=== PATIENT | male | born 1945 | race Caucasian/White ===

== ENCOUNTER → 2018-06-30 | Outpatient (CLI) | payer MEDICARE ==
[2018-06-30 07:43] LABS: Basophils % (A) 0 %; Eosinophils # (A) 0.2 k/uL (0-0.7); Eosinophils % (A) 3 %; HCT 45.3 % (39.0-53.0); HGB 14.7 gm/dL (13.0-17.5); Lymphocytes # (A) 2.2 k/uL (1.0-4.8); Lymphocytes % (A) 30 %; MCH 31.5 pg (25.0-35.0); MCHC 32.5 g/dL (31.0-37.0); Mean Platelet Volume 8.7; Monocytes # (A) 0.7 k/uL (0-1.0); Monocytes % (A) 9 %; Neutrophils # (A) 3.9 k/uL (1.3-7.7); Neutrophils % (A) 55 %; Platelet Count 166 k/uL (150-450); RBC 4.67 m/uL (4.30-5.90); RDW 13.1 % (11.5-15.5); WBC 7.2 k/uL (3.8-10.6)
[2018-06-30 08:18] LABS: ALT 27 U/L (21-72); AST 36 U/L (17-59); Alkaline Phosphatase 85 U/L (38-126); Anion Gap 6 mmol/L; Blood Urea Nitrogen 16 mg/dL (9-20); Calcium 9.4 mg/dL (8.4-10.2); Carbon Dioxide 32 mmol/L (22-30); Chloride 104 mmol/L (98-107); Cholesterol 204 mg/dL (<200); Glucose 89 mg/dL (74-99); HDL Cholesterol 61 mg/dL (40-60); LDL Cholesterol,Calculated 113 mg/dL (0-99); Potassium 4.3 mmol/L (3.5-5.1); Sodium 142 mmol/L (137-145); Total Bilirubin 0.5 mg/dL (0.2-1.3); Total Protein 6.9 g/dL (6.3-8.2); Triglycerides 149 mg/dL (<150)
[2018-06-30 08:21] LABS: T4, Free (Free Thyroxine) 1.15 ng/dL (0.78-2.19)
== END | disposition home or self-care (01) ==
LOC: LABWHC1 06:34
PROVIDERS: ATTEND Internal Medicine Cardiovascular Disease
DX: R06.02 Shortness of breath (principal); I35.0 Nonrheumatic aortic (valve) stenosis; E78.5 Hyperlipidemia, unspecified
CPT/HCPCS: 36415; 80053; 80061; 84439; 84443; 85025

== ENCOUNTER → 2019-02-14 | Outpatient (CLI) | payer MEDICARE, BC ==
[2019-02-14 08:14] LABS: Blood Urea Nitrogen 12 mg/dL (9-20)
--- NOTE | 2019-02-14 10:21 | CT ---
EXAMINATION TYPE: CT angio neck DATE OF EXAM: 02/14/2019 HISTORY: Carotid stenosis single artery per order. History of aortic valve replacement per patient. R ecent abnormal MRI per patient. COMPARISON: NONE at this institution. CT DLP: 226.1 mGycm. Automated Exposure Control for Dose Reduction was Utilized. TECHNIQUE: CTA scan of the neck is performed with IV Contrast, patient injected with 50 mL of Isovue 370, axial images are obtained, coronal and sagittal reformatted images are reviewed. Three-D recons tructed images are created on an independent workstation and reviewed. FINDINGS: Carotid/Vascular Structures: Ascending aorta measures up to 4.1 cm in diameter axial image 1. There i s mild mild to moderate mixed plaque in aortic arch. There is normal three-vessel origin from the aor tic arch. The right brachiocephalic artery shows moderate peripheral noncalcified plaque is not causi ng greater than 50% stenosis. Left subclavian artery shows mild to moderate mixed peripheral plaque w ithout significant stenosis. Both subclavian arteries show no significant stenosis. The right common carotid artery shows normal origin from the right brachiocephalic artery. Right comm on carotid artery shows no solid significant plaque or stenosis. There is moderate peripheral calcifi ed plaque at right carotid bulb extending into internal carotid artery. There is patent right externa l carotid artery without significant plaque or stenosis. In the proximal right internal carotid arter y there is severe noncalcified plaque causing significant stenosis. Lumen diameter is narrowed to 1.4 mm image 65 series 4 with reconstitution 2 roughly 4.9 mm superior to this image 67. Remainder of ri ght internal carotid artery shows mild calcified plaque without significant stenosis. The left common carotid artery shows moderate anterior eccentric noncalcified plaque mid to distal se gments with tiny ulceration axial image 45 noted. No significant stenosis is seen. There is moderate mixed plaque at left carotid bulb extending into proximal internal and external carotid arteries. Ext ernal carotid artery shows no significant stenosis. There becomes more severe mixed plaque in the pro ximal left internal carotid artery causing narrowing of vessel down to 5.5 x 2.6 mm axial image 63 wi th reconstitution to 4.7 mm axial image 72. Tortuous course to remainder of internal carotid artery i s seen with mild calcified plaque supraclinoid segment. No significant stenosis is noted. There is dominant right vertebral artery. Vertebral arteries are patent to basilar junction without s ignificant stenosis or plaque. Other: There is mild to moderate underlying emphysematous change and the visualized lungs. There are sternal wires and mediastinal clips noted. There is mild to moderate multilevel spurring and disc spa ce narrowing C3-C4 through the C6-C7 level in the cervical spine. IMPRESSION: Hemodynamically significant stenosis due to severe noncalcified plaque proximal right int ernal carotid artery, estimated degree of stenosis is just over 70% based on above measurements.
== END ==
LOC: RADCTMAIN 07:34
PROVIDERS: ATTEND Internal Medicine Cardiovascular Disease
DX: I65.21 Occlusion and stenosis of right carotid artery (principal)
CPT/HCPCS: 82565; 84520; 70498; 36415; Q9967

== ENCOUNTER → 2019-03-16 | Outpatient (CLI) | payer MEDICARE, BC ==
[2019-03-16 22:32] LABS: African American GFR (CKD) 104.2 (60.0-200.0); Anion Gap 2.6 mmol/L (4.00-12.00); BUN/Creat Ratio 16.25 Ratio (12.00-20.00); Calcium 9.3 mg/dL (8.7-10.3); Carbon Dioxide 33.4 mmol/L (21.6-31.8); Potassium 4.4 mmol/L (3.5-5.5)
== END | disposition home or self-care (01) ==
LOC: LABWHC1 16:09
PROVIDERS: ATTEND Internal Medicine Cardiovascular Disease
DX: I50.9 Heart failure, unspecified (principal); I51.7 Cardiomegaly
CPT/HCPCS: 36415; 80048

== ENCOUNTER → 2020-02-26 | Outpatient (CLI) | payer MEDICARE, BC ==
[2020-02-26 17:34] LABS: Chol/HDL Ratio 2.87; LDL Cholesterol,Calculated 107.8 mg/dL (0.0-131.0); VLDL Calculation 23.2 mg/dL (5.00-40.00)
== END | disposition home or self-care (01) ==
LOC: LABWHC1 10:34
PROVIDERS: ATTEND Internal Medicine Cardiovascular Disease
DX: E78.00 Pure hypercholesterolemia, unspecified (principal)
CPT/HCPCS: 36415; 80061; 84450; 84460

== ENCOUNTER → 2021-03-20 | Outpatient (CLI) | payer MEDICARE, BC ==
[2021-03-20 18:56] LABS: African American GFR (CKD) 108.5 (60.0-200.0); Albumin 4.1 g/dL (3.80-4.90); Albumin/Globulin Ratio 1.71 (1.60-3.17); BUN/Creat Ratio 18.57 Ratio (12.00-20.00); Calcium 9.3 mg/dL (8.7-10.3); Chol/HDL Ratio 2.88; Globulin 2.4 g/dL (1.6-3.3); LDL Cholesterol,Calculated 106.4 mg/dL (0.0-131.0); Non-African American GFR(CKD) 93.6 (60.0-200.0); Potassium 4.7 mmol/L (3.5-5.5); Total Bilirubin 0.5 mg/dL (0.3-1.2); Total Protein 6.5 g/dL (6.2-8.2); VLDL Calculation 19.6 mg/dL (5.00-40.00)
== END | disposition home or self-care (01) ==
LOC: LABWHC1 07:10
PROVIDERS: ATTEND Internal Medicine Cardiovascular Disease
DX: I42.0 Dilated cardiomyopathy (principal); I50.22 Chronic systolic (congestive) heart failure; E78.2 Mixed hyperlipidemia
CPT/HCPCS: 36415; 80053; 80061

== ENCOUNTER → 2021-07-22 | Outpatient (CLI) | payer MEDICARE, BC ==
[2021-07-22 14:43] LABS: African American GFR (CKD) >90 (>60 ml/min/1.73 sqM); Blood Urea Nitrogen 17 mg/dL (9-20); Non-African American GFR(CKD) >90 (>60 ml/min/1.73 sqM)
--- NOTE | 2021-07-22 16:14 | CT ---
EXAMINATION TYPE: CT angio neck DATE OF EXAM: 07/22/2021 HISTORY: Carotid stenosis. COMPARISON: CT angiogram of the neck 02/14/2019 CT DLP: 303 mGycm. Automated Exposure Control for Dose Reduction was Utilized. TECHNIQUE: CTA scan of the neck is performed with IV Contrast, patient injected with 65 mL of Isovue 370, axial images are obtained, coronal and sagittal reformatted images are reviewed. 3D reconstruct ed images are created on an independent workstation and reviewed. FINDINGS: Carotid/Vascular Structures: There is extensive atheromatous change present at the level of the carot id bifurcations. Critical stenosis of the proximal internal carotid artery on the right is noted, josé antonio nosis is estimated at approximately 70% or greater. On the left there is a significant internal carot id artery stenosis also present, stenosis also measured approximately 70% diameter reduction or possi marlen greater. 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 Other: Atheromatous changes are again noted in the upper lobes. Patient is post median sternotomy. D egenerative disc changes are present in the visualized spine IMPRESSION: Bilateral hemodynamic significant stenosis the proximal internal carotid arteries likely greater on the right than on the left but similar NASCET criteria was used in interpretation of this exam?
== END | disposition home or self-care (01) ==
LOC: RADCTMAIN 13:44
PROVIDERS: ATTEND Internal Medicine Cardiovascular Disease
DX: I65.8 Occlusion and stenosis of other precerebral arteries (principal)
CPT/HCPCS: 82565; 84520; 70498; 36415; Q9967

== ENCOUNTER → 2021-10-13 | Outpatient (CLI) | payer MEDICARE ==
[2021-10-13 10:28] LABS: HCT 45.2 % (39.0-53.0); MCH 30.9 pg (25.0-35.0); MCV 99.7 fL (80.0-100.0); Platelet Count 159 k/uL (150-450); RBC 4.54 m/uL (4.30-5.90); RDW 12.4 % (11.5-15.5); WBC 7.3 k/uL (3.8-10.6)
[2021-10-13 10:50] LABS: African American GFR (CKD) >90 (>60 ml/min/1.73 sqM); Anion Gap 2 mmol/L; Blood Urea Nitrogen 15 mg/dL (9-20); Carbon Dioxide 38 mmol/L (22-30); Chloride 98 mmol/L (98-107); Non-African American GFR(CKD) >90 (>60 ml/min/1.73 sqM); Sodium 138 mmol/L (137-145)
[2021-10-13 11:14] LABS: Potassium 4.6 mmol/L (3.5-5.1)
== END | disposition home or self-care (01) ==
LOC: LABPAT 07:58
PROVIDERS: ATTEND Internal Medicine Interventional Cardiology
DX: Z01.812 Encounter for preprocedural laboratory examination (principal)
CPT/HCPCS: 80051; 82565; 84520; 85027

== ENCOUNTER 2021-10-14 06:08 | Inpatient (IN) | payer BC, MEDICARE ==
[2021-10-14] MEDS ORDERED: ceFAZolin 2 GM in SODIUM CHLORIDE 0.9% 500 ML 500 ML IRRIGATION PRN (06:33)
[2021-10-14] MEDS ORDERED: CLOPIDOGREL 75 MG TAB PO PRN (06:33)
[2021-10-14] MEDS ORDERED: ALPRAZolam 0.25 MG TAB PO PRN (06:33)
[2021-10-14] MEDS ORDERED: ALPRAZolam 0.5 MG TAB PO PRN (06:33)
[2021-10-14] MEDS ORDERED: ASPIRIN 325 MG TAB PO PRN (06:33)
[2021-10-14] MEDS ORDERED: ASPIRIN 81 MG PO PRN (06:33)
[2021-10-14] MEDS ORDERED: SODIUM CHLORIDE 0.9% 1,000 ML in EMPTY BAG 1 BAG IV ONE (06:33)
[2021-10-14] MEDS ORDERED: NITROGLYCERIN SL TABS 0.4 MG TAB SUBLINGUAL PRN ×2 (06:33→11:00)
[2021-10-14] MEDS ORDERED: SODIUM CHLORIDE 0.9% 1,000 ML IV ONE (07:02)
[2021-10-14] MEDS ORDERED: CLOPIDOGREL 75 MG TAB PO ONE (09:12)
[2021-10-14] MEDS ORDERED: HEPARIN SODIUM 1,000 UN/ML (10ML VL) IV ONE (09:18)
[2021-10-14] MEDS ORDERED: MAG HYDROX/AL HYDROX/SIMETH 30 ML CUP PO PRN (11:00)
[2021-10-14] MEDS ORDERED: ZOLPIDEM 5 MG TAB PO PRN (11:00)
[2021-10-14] MEDS ORDERED: RX INFO: IV CONTRAST WAS GIVEN 1 EACH MISC MISCELLANE PRN (11:00)
[2021-10-14] MEDS ORDERED: SODIUM CHLORIDE 0.9% 1,000 ML in EMPTY BAG 1 BAG IV SCH (11:00)
[2021-10-14] MEDS ORDERED: ATROPINE SULFATE 0.1 MG/ML 10ML SYRINGE IV PRN (11:00)
--- NOTE | 2021-10-14 11:12 | P.PCN ---
Date of Procedure: 10/14/21 Operative Findings: CAROTID ARTERY INTERVENTION Performing physician Cas Armstrong M.D. Procedure performed #1 successful stenting of the left internal carotid artery using 6-8 mm x 30 mm Acculink with adjunctive use of filter wire #2 selective left common and left internal carotid artery angiogram #3 an aortic arch angiogram #4 ultrasound-guided access of the right common femoral artery Indication This is a 76-year-old gentleman with multiple comorbid conditions including history of valvular heart disease and status post aortic valve replacement as well as hypertension and dyslipidemia who was diagnosis and he was critical disease involving the right and left internal carotid artery. Approach Right common femoral artery Complication None Level of sedation No sedation was given during the procedure Procedure description After obtaining an informed consent the patient was brought to the cardiac bottle labeler. The right common femoral artery was cannulated using puncture technique under ultrasound guidance, the micropuncture wire passed easily then replace 70 cm 6- Lebanese shuttle sheath in the right common femoral artery over an 035 stiff Glidewire. That point anticoagulation was initiated and the patient was given 6000 use of heparin at the beginning of the procedure with continuous ACT monitoring throughout the procedure Subsequently I did aortic arch angiogram using 5-Lebanese pigtail catheter. 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 At that point I did engage the ostial of the left common carotid artery using initially JB2 catheter but we had difficulties advancing the wire to the left common carotid artery and for that reason a change the catheter into the BTK catheter and with that I was able to engage the ostial of the left common carotid artery better. Subsequently I advanced to the left common carotid artery. Then I advanced the sheath over the wire and the catheter to the proximal left common carotid artery. Left common and left internal carotid artery angiogram was performed and revealed critical lesion involving the left common carotid artery right after the takeoff from the left common carotid artery. At that point and after prepping the filter wire and that was 7.2 mm Emboshield ADRIAN filter wire I did advance the wire through the lesion in the left common carotid artery and subsequently I deployed the filter under fluoroscopy guidance. Predilatation of the lesion was performed using 4 mm balloon. Subsequently I deployed a 68 mm x 30 mm Acculink stent under fluoroscopy guidance after the stent was positioned under fluoroscopy guidance. Postdilatation was performed using 5 mm balloon. The following angiogram showed an excellent angiographic results and the procedure was completed without any complication Postprocedure management #1 dual antiplatelet therapy #2 restart the patient back on anticoagulation #3 pulled the sheath from the right groin and manual bleeding control #4 and ICU monitoring #5 follow-up with the patient
--- NOTE | 2021-10-14 12:39 | IR ---
Fluoroscopy HISTORY: Carotid stenosis 30.6 minutes fluoroscopy time supplied to the referring clinician. 2 70 intraoperative C-arm image s document the procedure. See dictated report from cardiology.
[2021-10-14] MEDS ORDERED: WARFARIN 5 MG TAB PO SCH (12:59)
--- NOTE | 2021-10-14 13:04 | P.PN ---
Progress Note - Text Progress Note Date: 10/14/21 The initial consent was to perform stenting of the right internal carotid artery. The angiogram of the left internal carotid artery revealed a critical disease appeared to be in the range of 99.9%. Or that reason we decided to pursue stenting of the left carotid artery first.
[2021-10-14] MEDS: NOREPINEPHRINE 4 MG in SODIUM CHLORIDE 0.9% 250 ML IV SCH (13:15)
[2021-10-14] MEDS ORDERED: WARFARIN 7.5 MG TAB PO ONE (13:45)
[2021-10-14 14:59] LABS: Glucose,Whole Blood 128 mg/dL (75-99)
[2021-10-14] MEDS: ACETAMINOPHEN TAB 325 MG TAB PO PRN (17:24)
[2021-10-14] MEDS: ENOXAPARIN 60 MG/0.6 ML SYRINGE SQ SCH (20:42)
[2021-10-14 20:57] VITALS: TEMP 98.6
[2021-10-15] MEDS: ACETAMINOPHEN TAB 325 MG TAB PO PRN (03:44)
[2021-10-15] MEDS: NOREPINEPHRINE 4 MG in SODIUM CHLORIDE 0.9% 250 ML IV SCH (03:45)
[2021-10-15 06:50] LABS: INR 1.1 (<1.2); Prothrombin Time 11.7 sec (9.0-12.0)
[2021-10-15] MEDS ORDERED: SODIUM CHLORIDE 0.9% 1,000 ML IV SCH (07:45)
[2021-10-15] MEDS ORDERED: ASPIRIN 81 MG PO SCH (09:00)
[2021-10-15] MEDS ORDERED: CLOPIDOGREL 75 MG TAB PO SCH (09:15)
[2021-10-15 09:19] LABS: African American GFR (CKD) >90 (>60 ml/min/1.73 sqM); Anion Gap -2 mmol/L; Blood Urea Nitrogen 10 mg/dL (9-20); Calcium 8.7 mg/dL (8.4-10.2); Carbon Dioxide 33 mmol/L (22-30); Chloride 104 mmol/L (98-107); Glucose 108 mg/dL (74-99); Non-African American GFR(CKD) >90 (>60 ml/min/1.73 sqM); Potassium 4.1 mmol/L (3.5-5.1); Sodium 135 mmol/L (137-145)
[2021-10-15] MEDS: ENOXAPARIN 60 MG/0.6 ML SYRINGE SQ SCH (09:29)
[2021-10-15 09:43] LABS: Basophils % (A) 0 %; Eosinophils # (A) 0.1 k/uL (0-0.7); Eosinophils % (A) 1 %; HCT 39.6 % (39.0-53.0); HGB 12.5 gm/dL (13.0-17.5); Lymphocytes % (A) 18 %; MCH 31.5 pg (25.0-35.0); MCHC 31.6 g/dL (31.0-37.0); MCV 99.8 fL (80.0-100.0); Mean Platelet Volume 9.3; Monocytes # (A) 0.8 k/uL (0-1.0); Monocytes % (A) 7 %; Neutrophils # (A) 7.7 k/uL (1.3-7.7); Neutrophils % (A) 72 %; Platelet Count 172 k/uL (150-450); RBC 3.97 m/uL (4.30-5.90); RDW 12.4 % (11.5-15.5); WBC 10.8 k/uL (3.8-10.6)
[2021-10-15 11:21] VITALS: BMI 18.5
[2021-10-15 13:25] VITALS: BP 123/78; PULSE 98; RESP 15
--- NOTE | 2021-10-15 17:15 | P.DS ---
Providers Date of admission: 10/14/21 06:08 Attending physician: Cas Armstrong Consults: 10/14/21 11:00 Consult Physician Routine Consulting Provider: [facility] Consult Reason/Comments: Post Interventional patient Do you want consulting provider notified?: Already Contacted Primary care physician: Stated None Hospital Course: The patient is a pleasant 76-year-old gentleman was admitted to the hospital yesterday and underwent successful stenting of the left internal carotid artery with an excellent angiographic results. The procedure was performed from the right groin. 1 soft and nontender and without any bruises. He was seen and evaluated this morning tomography. The patient is going to discharge on dual antiplatelet therapy. He will be bridged to Coumadin using Lovenox because he does have a mechanical aortic valve prosthesis. I'm going to follow-up with the patient in a week. Plan - Discharge Summary Discharge Rx Participant: Yes New Discharge Prescriptions: New Enoxaparin [Lovenox] 60 mg SQ Q12H #14 each Enoxaparin [Lovenox] 60 mg SQ Q12HR #14 each Aspirin 81 mg PO DAILY #90 Clopidogrel [Plavix] 75 mg PO DAILY #90 tab Continue Multivitamins, Thera [Multivitamin (formulary)] 1 tab PO DAILY Warfarin [Coumadin] 5 mg PO DAILY Spironolactone 25 mg PO DAILY Lovastatin [Mevacor] 20 mg PO HS Carvedilol [Coreg] 12.5 mg PO BID Potassium Chloride [K-Tab ER] 8 meq PO DAILY Discharge Medication List Carvedilol [Coreg] 12.5 mg PO BID 10/12/21 [History] Lovastatin [Mevacor] 20 mg PO HS 10/12/21 [History] Multivitamins, Thera [Multivitamin (formulary)] 1 tab PO DAILY 10/12/21 [History] Potassium Chloride [K-Tab ER] 8 meq PO DAILY 10/12/21 [History] Spironolactone 25 mg PO DAILY 10/12/21 [History] Warfarin [Coumadin] 5 mg PO DAILY 10/12/21 [History] Aspirin 81 mg PO DAILY #90 10/15/21 [Rx] Clopidogrel [Plavix] 75 mg PO DAILY #90 tab 10/15/21 [Rx] Enoxaparin [Lovenox] 60 mg SQ Q12H #14 each 10/15/21 [Rx] Enoxaparin [Lovenox] 60 mg SQ Q12HR #14 each 10/15/21 [Rx] Follow up Appointment(s)/Referral(s): Cas Armstrong MD [STAFF PHYSICIAN] - 1 Week Patient Instructions/Handouts: How to Stop Smoking (DC), Heart Healthy Diet (DC), Carotid Artery Stent Placement (DC), Carotid Artery Stent Placement (GEN) Activity/Diet/Wound Care/Special Instructions: Lovenox cost is $40. Lovenox prescription filled at [facility]. Continue taking Lovenox twice a day until your follow-up appointment with Dr. Garcia. Continue taking Coumadin every day. 5 mg dose daily per Dr. Garcia until your INR is therapeutic. Discharge Disposition: HOME SELF-CARE
--- NOTE | 2021-10-15 17:18 | P.PN ---
Progress Note - Text Progress Note Date: 10/15/21 The patient was discharged on carvedilol. I called the patient to stop taking the carvedilol to the ICU in the office. Just because his pressure was marginally low before he left home. The patient was in full understanding and agreement
[2021-10-15] MEDS ORDERED: WARFARIN 5 MG TAB PO ONE (18:00)
== END 2021-10-15 13:28 | disposition home or self-care (01) | DRG 36 ==
LOC: 2ORMAIN 06:08 → 2SICU 14:09
PROVIDERS: ADMIT Internal Medicine Interventional Cardiology; ATTEND Internal Medicine Interventional Cardiology
PROC: B3171ZZ Fluoroscopy of Left Internal Carotid Artery using Low Osmolar Contrast (ICD-10-PCS; 2021-10-14)
PROC: B3101ZZ Fluoroscopy of Thoracic Aorta using Low Osmolar Contrast (ICD-10-PCS; 2021-10-14)
PROC: 037L3DZ Dilation of Left Internal Carotid Artery with Intraluminal Device, Percutaneous Approach (ICD-10-PCS; principal; 2021-10-14 07:30)
DX: I65.22 Occlusion and stenosis of left carotid artery (principal); E78.5 Hyperlipidemia, unspecified; I10 Essential (primary) hypertension; Z20.822 Contact with and (suspected) exposure to COVID-19; Z95.2 Presence of prosthetic heart valve
CPT/HCPCS: 37215; 80048; 80051; 82565; 84520; 85025; 85027; 85610; 87635

== ENCOUNTER 2021-11-04 11:00 | Observation (INO) | payer MEDICARE ==
[2021-12-04 14:29] VITALS: BMI 19.9
[2021-12-09] MEDS ORDERED: ASPIRIN 325 MG TAB PO PRN (06:00)
[2021-12-09] MEDS ORDERED: ZOLPIDEM 5 MG TAB PO PRN (06:00)
[2021-12-09] MEDS ORDERED: SODIUM CHLORIDE 0.9% 1,000 ML in EMPTY BAG 1 BAG IV ONE (06:00)
[2021-12-09] MEDS ORDERED: ALPRAZolam 0.5 MG TAB PO PRN (06:00)
[2021-12-09] MEDS ORDERED: ALPRAZolam 0.25 MG TAB PO PRN (06:00)
[2021-12-09] MEDS ORDERED: ASPIRIN 81 MG PO PRN (06:00)
[2021-12-09] MEDS ORDERED: NITROGLYCERIN SL TABS 0.4 MG TAB SUBLINGUAL PRN (06:00)
[2021-12-09] MEDS ORDERED: CLOPIDOGREL 75 MG TAB PO PRN (06:00)
[2021-12-09] MEDS ORDERED: ceFAZolin 2 GM in SODIUM CHLORIDE 0.9% 500 ML 500 ML IRRIGATION PRN (07:00)
[2021-12-09 09:17] VITALS: RESP 16; TEMP 98.1
[2021-12-09 09:44] LABS: INR 0.9 (<1.2); Prothrombin Time 10.2 sec (9.0-12.0)
[2021-12-09] MEDS ORDERED: LIDOCAINE 1% INJ 10MG/ML (20 ML MDV) ONE (10:15)
[2021-12-09] MEDS ORDERED: HEPARIN SODIUM 1,000 UN/ML (10ML VL) ONE (10:23)
[2021-12-09] MEDS ORDERED: LIDOCAINE 1% INJ 10MG/ML (20 ML MDV) SQ ONE (10:34)
[2021-12-09] MEDS ORDERED: ATROPINE SULFATE 0.1 MG/ML 10ML SYRINGE IV ONE (11:01)
[2021-12-09] MEDS ORDERED: IOPAMIDOL-370 100ML BTL INJ ONE (11:11)
[2021-12-09] MEDS ORDERED: WARFARIN 5 MG TAB PO SCH (11:15)
[2021-12-09] MEDS ORDERED: NALOXONE 0.4 MG/ML 1 ML VIAL IVP PRN (11:16)
--- NOTE | 2021-12-09 12:01 | IR ---
EXAMINATION TYPE: IR angio carotid cerv RT DATE OF EXAM: 12/09/2021 CLINICAL HISTORY: Carotid artery stenosis TECHNIQUE: Fluoroscopy. COMPARISON: CTA neck July 22, 2021. FINDINGS: Fluoroscopic guidance was provided during carotid angiogram procedure performed by Dr. Ara mcelroy. A total of 8.8 minutes of fluoroscopic time was utilized during the procedure and 53 spot images was acquired. Please refer to procedure note for further details if necessary as I was not present no r performed procedure. IMPRESSION: As Above.
[2021-12-09 15:50] VITALS: BP 134/61; PULSE 72
--- NOTE | 2021-12-09 19:09 | P.PCN ---
Date of Procedure: 12/09/21 Operative Findings: Carotid angiogram Performing physician Cas Armstrong MD Procedure performed Selective right common carotid and right internal carotid angiogram Selective right common femoral artery angiogram Ultrasound-guided access of the right common femoral artery Indication Critical disease involving the right common carotid artery documented by CTA of the head and neck. Approach Right common femoral artery Complication None Level of sedation No sedation was done Procedure description After obtaining an informed consent the patient was brought to the cardiac label pinker. The right common femoral artery was cannulated using micropuncture technique, the micropuncture wire passed easily then I place a 6-Belgian sheath 90 cm "shadow sheath" which was advanced to the ascending aorta under fluoroscopy guidance. I did selective the innominate artery using PTK catheter. I did wire the right common carotid artery using super core wire. After that using multipurpose catheter I was able to advance the sheath over the wire and the catheter to the proximal right common carotid artery. Selective right common carotid artery angiogram was performed as well as selective right internal carotid artery angiogram. That was performed in multiple angulations. The angiogram revealed critical disease with distinct sign but beside that the patient developed hypotension and bradycardia with a very timely injecting contrast. In the light of the above I decided to abort the angioplasty and stenting of the right carotid and the patient will be referred to undergo right carotid endarterectomy. Postprocedure management Refer the patient for right carotid endarterectomy Restart the patient back on Lovenox as a bridge to heparin Follow-up with the patient
[2021-12-09] MEDS ORDERED: ENOXAPARIN 60 MG/0.6 ML SYRINGE SQ SCH (21:00)
[2021-12-10] MEDS ORDERED: SPIRONOLACTONE 25 MG TAB PO SCH (09:00)
[2021-12-10] MEDS ORDERED: ASPIRIN 81 MG PO SCH (09:00)
[2021-12-10] MEDS ORDERED: MULTIVITAMINS, THERA 1 EACH TAB PO SCH (09:00)
[2021-12-10] MEDS ORDERED: POTASSIUM CHLORIDE ER 10 MEQ TAB.ER.PRT PO SCH (09:00)
[2021-12-10] MEDS ORDERED: ATORVASTATIN 20 MG TAB PO SCH (09:00)
[2021-12-10] MEDS ORDERED: CLOPIDOGREL 75 MG TAB PO SCH (09:00)
[2021-12-12] MEDS ORDERED: WARFARIN 5 MG TAB PO SCH (11:13)
== END 2021-12-09 18:10 | disposition home or self-care (01) ==
LOC: 2ORMAIN 12-09 08:50 → INTOOBSV 12-09 08:50 → UNDODISIN 12-09 18:10
PROVIDERS: ADMIT Internal Medicine Interventional Cardiology; ATTEND Internal Medicine Interventional Cardiology
PROC: B41F1ZZ Fluoroscopy of Right Lower Extremity Arteries using Low Osmolar Contrast (ICD-10-PCS; principal; 2021-12-09 10:00)
PROC: B3161ZZ Fluoroscopy of Right Internal Carotid Artery using Low Osmolar Contrast (ICD-10-PCS; principal; 2021-12-09 10:00)
DX: I65.21 Occlusion and stenosis of right carotid artery (principal); I11.0 Hypertensive heart disease with heart failure; I50.22 Chronic systolic (congestive) heart failure; I42.0 Dilated cardiomyopathy; I95.89 Other hypotension; R00.1 Bradycardia, unspecified; F17.210 Nicotine dependence, cigarettes, uncomplicated; Z79.01 Long term (current) use of anticoagulants; E78.00 Pure hypercholesterolemia, unspecified; Z79.82 Long term (current) use of aspirin; Z79.02 Long term (current) use of antithrombotics/antiplatelets; Z79.899 Other long term (current) drug therapy; Z95.2 Presence of prosthetic heart valve; Z95.820 Peripheral vascular angioplasty status with implants and grafts
CPT/HCPCS: 36224; 85347; 85610; 87635; G0379; C1769 ×5; C1894 ×2; J2001; J0461; J1644; Q9967

== ENCOUNTER → 2021-11-16 | Outpatient (CLI) | payer MEDICARE ==
[2021-11-16 18:28] LABS: HCT 36.8 % (39.6-50.0); HGB 11.3 g/dL (13.0-17.0); MCH 30.5 pg (27.0-32.0); MCHC 30.7 g/dL (32.0-37.0); MCV 99.5 fL (80.0-97.0); Mean Platelet Volume 11.6 fL (9.5-12.2); NRBC Per 100 WBC 0 /100 WBCS (0.0-0.0); Platelet Count 194 X 10*3/uL (140-440); RDW 12.6 % (11.5-14.5); WBC 6.38 X 10*3/uL (4.50-10.00)
[2021-11-16 18:50] LABS: African American GFR (CKD) 110.9 (60.0-200.0); Anion Gap 9.9 mmol/L (10.00-18.00); Carbon Dioxide 30.1 mmol/L (20.0-27.5); Non-African American GFR(CKD) 95.7 (60.0-200.0)
== END | disposition home or self-care (01) ==
LOC: LABWHC1 11:34
PROVIDERS: ATTEND Internal Medicine Interventional Cardiology
DX: Z01.812 Encounter for preprocedural laboratory examination (principal); I65.23 Occlusion and stenosis of bilateral carotid arteries
CPT/HCPCS: 36415; 80051; 82565; 84520; 85027

== ENCOUNTER → 2022-02-03 | Outpatient (CLI) | payer MEDICARE ==
[2022-02-03 14:57] LABS: Basophils # (A) 0.05 X 10*3/uL (0.00-0.10); Basophils % (A) 0.8 %; Eosinophils # (A) 0.18 X 10*3/uL (0.04-0.35); Eosinophils % (A) 2.7 %; HCT 30.8 % (39.6-50.0); HGB 8.7 g/dL (13.0-17.0); Immature Grans, Automated 0.3 %; Lymphocytes # (A) 1.73 X 10*3/uL (0.90-5.00); Lymphocytes % (A) 26.1 %; MCHC 28.2 g/dL (32.0-37.0); MCV 85.1 fL (80.0-97.0); Monocytes # (A) 0.92 X 10*3/uL (0.20-1.00); Monocytes % (A) 13.9 %; NRBC Per 100 WBC 0 /100 WBCS (0.0-0.0); Neutrophils # (A) 3.73 X 10*3/uL (1.80-7.70); Neutrophils % (A) 56.2 %; Platelet Count 268 X 10*3/uL (140-440); RBC 3.62 X 10*6/uL (4.40-5.60); RDW 17.3 % (11.5-14.5); WBC 6.63 X 10*3/uL (4.50-10.00)
== END | disposition home or self-care (01) ==
LOC: LABWHC1 07:52
PROVIDERS: ATTEND Internal Medicine Cardiovascular Disease
DX: K92.2 Gastrointestinal hemorrhage, unspecified (principal)
CPT/HCPCS: 36415; 85025

== ENCOUNTER 2022-02-05 15:22 | Emergency (ER) | payer MEDICARE ==
[2022-02-05 15:57] VITALS: BP 140/66; PULSE 82; RESP 18; TEMP 98
[2022-02-05 17:51] LABS: Anisocytosis Slight; Basophils # (A) 0.1 k/uL (0-0.2); Basophils % (A) 1 %; Eosinophils # (A) 0.1 k/uL (0-0.7); Eosinophils % (A) 2 %; HCT 32.6 % (39.0-53.0); HGB 9.5 gm/dL (13.0-17.5); Hypochromasia Marked; Lymphocytes % (A) 26 %; MCH 24.7 pg (25.0-35.0); MCHC 29.2 g/dL (31.0-37.0); MCV 84.6 fL (80.0-100.0); Mean Platelet Volume 8.3; Monocytes # (A) 0.7 k/uL (0-1.0); Monocytes % (A) 8 %; Neutrophils # (A) 4.7 k/uL (1.3-7.7); Neutrophils % (A) 60 %; Platelet Count 256 k/uL (150-450); Poikilocytosis Slight; RBC 3.85 m/uL (4.30-5.90); RDW 16.5 % (11.5-15.5); WBC 7.8 k/uL (3.8-10.6)
== END 2022-02-05 19:18 | disposition left against medical advice (07) ==
LOC: EC 15:22
DX: Z53.21 Procedure and treatment not carried out due to patient leaving prior to being seen by health care provider (principal); R71.0 Precipitous drop in hematocrit
CPT/HCPCS: 36415; 85025; 99499

== ENCOUNTER → 2022-02-23 | Outpatient (CLI) | payer MEDICARE ==
[2022-02-23 10:49] LABS: Anisocytosis Slight; HCT 36.9 % (39.0-53.0); HGB 10.2 gm/dL (13.0-17.5); Hypochromasia Marked; MCH 23.1 pg (25.0-35.0); MCHC 27.6 g/dL (31.0-37.0); MCV 83.5 fL (80.0-100.0); Mean Platelet Volume 9.1; Platelet Count 225 k/uL (150-450); Poikilocytosis Slight; RBC 4.43 m/uL (4.30-5.90); RDW 16.5 % (11.5-15.5); WBC 6.2 k/uL (3.8-10.6)
[2022-02-23 11:18] LABS: Prothrombin Time 11.2 sec (9.0-12.0)
== END | disposition home or self-care (01) ==
LOC: LABWHC1 10:01
PROVIDERS: ATTEND Surgery
DX: Z01.812 Encounter for preprocedural laboratory examination (principal); I65.29 Occlusion and stenosis of unspecified carotid artery
CPT/HCPCS: 36415; 84132; 85027; 85610; 85730; 93005

== ENCOUNTER 2022-02-24 06:37 | Inpatient (IN) | payer MEDICARE ==
[2022-02-23 10:08] VITALS: BMI 19.6
[2022-02-24] MEDS ORDERED: LIDOCAINE 1% (10MG/ML) FOR IV START INTRADERMA PRN (07:01)
[2022-02-24] MEDS ORDERED: DEXAMETHASONE SOD PHOSPHATE 4 MG/ML 1 ML VIAL IV ONE (07:01)
[2022-02-24] MEDS ORDERED: HYDROmorphone 0.5 MG/0.5 ML SYRINGE IVP PRN (07:01)
[2022-02-24] MEDS ORDERED: ONDANSETRON 4 MG/2 ML VIAL IVP ONE (07:01)
[2022-02-24] MEDS: LACTATED RINGERS 1,000 ML IV SCH (07:22)
[2022-02-24] MEDS ORDERED: HEPARIN SODIUM,PORCINE 10,000 UNIT/ML 1 ML VIAL ONE (08:30)
[2022-02-24] MEDS ORDERED: PROTAMINE SULFATE 10 MG/ML 5 ML VIAL IV ONE (08:30)
[2022-02-24] MEDS ORDERED: SUCCINYLCHOLINE CHLORIDE 100 MG/5 ML SYR IV ONE (08:30)
[2022-02-24] MEDS ORDERED: NEOSTIGMINE 1 MG/ML 10 ML VIAL ONE (08:30)
[2022-02-24] MEDS ORDERED: MIDAZOLAM 2 MG/2 ML VIAL ONE (08:30)
[2022-02-24] MEDS ORDERED: fentaNYL (PF) 50 MCG/ML 2 ML AMP ONE (08:30)
[2022-02-24] MEDS ORDERED: NALOXONE 0.4 MG/ML 1 ML VIAL ONE (08:30)
[2022-02-24] MEDS ORDERED: ePHEDrine 50 MG/ML 1 ML VIAL ONE (08:30)
[2022-02-24] MEDS ORDERED: PROPOFOL 10 MG/ML 20 ML VIAL IV ONE (08:30)
[2022-02-24] MEDS ORDERED: ROCURONIUM 10 MG/ML (5 ML VIAL) IV ONE (08:30)
[2022-02-24] MEDS ORDERED: GLYCOPYRROLATE 0.2 MG/ML 2 ML VIAL ONE (08:30)
[2022-02-24] MEDS ORDERED: PHENYLEPHRINE-0.9% NACL SYG 1,000 MCG/10 ML SYRINGE ONE (08:30)
[2022-02-24] MEDS ORDERED: LIDOCAINE 1% INJ 10MG/ML (20 ML MDV) SQ ONE ×2 (09:21)
[2022-02-24] MEDS ORDERED: ceFAZolin 2,000 MG in SODIUM CHLORIDE 0.9% 500 ML IRRIGATION ONE (09:22)
[2022-02-24] MEDS ORDERED: HEPARIN SODIUM,PORCINE 2,000 UNIT in SODIUM CHLORIDE 0.9% 500 ML 1,000 ML IRRIGATION ONE (09:23)
[2022-02-24] MEDS ORDERED: ALBUTEROL NEBULIZED 2.5 MG/3 ML INHALATION PRN (10:57)
--- NOTE | 2022-02-24 11:10 | P.OP ---
Date of Procedure: 02/24/22 Preoperative Diagnosis: Hemodynamically severe right ICA stenosis (greater than 90%). Postoperative Diagnosis: Same. Procedure(s) Performed: Right carotid endarterectomy with patch angioplasty. Implants: Bovine pericardial patch. Anesthesia: ANAMA Surgeon: Barry Khan Estimated Blood Loss (ml): 75 Pathology: other (Carotid plaque) Condition: stable Disposition: PACU Indications for Procedure: Patient is a 76-year-old male with a long-standing history of peripheral vascular disease as well as cardiac disease who on surveillance was found be suffering from bilateral carotid stenosis. On the right testing indicated this stenosis to be greater than 90%. Patient was felt to be a reasonable candidate for open endarterectomy as opposed to carotid stenting. The procedure of endarterectomy, risk and benefits were discussed in great detail. Patient wished to proceed. Description of Procedure: Patient was brought the upper and placed in supine position and administered general endotracheal anesthesia delivered by the department anesthesiology. Patient received intravenously Mr. prophylactic antibiotics in the perioperative phase. Castañeda catheter is placed to gravity drainage. The right lateral neck supraclavicular and anterior chest wall areas were sterilely prepped and draped in the usual manner. Skin incision was made along the anterior border sternocleidomastoid muscle and carried down through the subcutaneous tissues. Hemostasis was achieved using electrocautery. The platysma muscle was incised. Further dissection revealed the facial vein. This was skeletonized and ligated with silk suture and divided between the ligatures. The proximal portion of the exposed common femoral artery was identified and dissected free of investing tissues and encircled Vesseloops. The dissection was then carried cephalad to the bulb. The vagus nerve was identified and left undisturbed. The superior thyroid artery and external carotid arteries were dissected free of investing tissues and encircled with Vesseloops. The hypoglossal nerve was identified and left undisturbed. The internal carotid artery was then dissected free of investing tissues to the level above the occlusive plaque formation. Vessel loop was placed at this level. The patient was systemically heparinized and after adequate circulation time the Vesseloops surrounding the internal carotid, common carotid, external carotid and superior thyroid arteries were drawn closed. Arteriotomy was made in the common carotid and extended with Pott Carrasco scissors through the bulb and into the internal carotid artery past the level of plaque. Stump pressure revealed a mean of 80 mmHg and thus no shunting was felt necessary. Arteriotomy was then begun at the common carotid level extended cephalad to the level of bulb. Retraction endarterectomy was performed on the external system. The endarterectomy was then extended into the internal carotid and the distal end was feathered off. Specimen was sent to pathology. The remaining luminal surface was inspected for any loose or free-floating material. It was felt appropriate to tack plaque at the internal carotid level and this was performed with 6-0 Prolene suture. Patch arteriotomy closure of the arteriotomy was performed with bovine pericardial patch and 6-0 Prolene suture. Just prior to completion of the anastomotic line the internal carotid artery was backbled and no thrombus was retrieved. The internal was then occluded at its origin and the common was then flushed with no thrombus being retrieved. Arteriotomy closure was then completed. The origin of the internal was once again occluded. Vesseloops surrounding the superior thyroid and external carotid artery were released followed by releasing of the Vesseloops surrounding the common carotid artery t hus flushing any potential debris into the external system. Flow was then restored into the internal system. 2 points of bleeding were identified along the anastomotic line and these were controlled with Prolene suture. Excellent pulse was identified in the internal carotid distal to the endarterectomy plane. The patient received 25 mg of protamine to reverse the heparin effect. The wound was irrigated with antibiotic containing solution. Hemostasis was felt to be adequate. Deep tissues were then reapproximated with 3-0 Vicryl dermis was closed with 4-0 Monocryl placed in running intradermal fashion. Skin glue and appropriate dressings were applied. Patient tolerated the procedure well and awoke without apparent neurologic event and was transferred to the recovery area in satisfactory and stable condition.
[2022-02-24 11:20] LABS: Glucose,Whole Blood 127 mg/dL (75-99)
[2022-02-24 12:43] LABS: Glucose,Whole Blood 126 mg/dL (75-99)
[2022-02-24] MEDS ORDERED: NALOXONE 0.4 MG/ML 1 ML VIAL IV PRN (15:44)
[2022-02-24] MEDS ORDERED: BENZOCAINE/MENTHOL LOZENG 1 EACH LOZENGE MUCOUS MEM PRN (15:47)
[2022-02-24] MEDS: SPIRONOLACTONE 25 MG TAB PO SCH (15:58)
[2022-02-24] MEDS: CLOPIDOGREL 75 MG TAB PO SCH (15:58)
[2022-02-24] MEDS ORDERED: WARFARIN 5 MG TAB PO ONE (18:00)
[2022-02-24] MEDS ORDERED: HYDROcodone/APAP 5-325MG 1 EACH TAB PO PRN (18:33)
[2022-02-24] MEDS ORDERED: HYDROcodone/APAP 5-325MG 1 EACH TAB PO STA (19:05)
[2022-02-24] MEDS: ENOXAPARIN 60 MG/0.6 ML SYRINGE SQ SCH (19:58)
[2022-02-24] MEDS ORDERED: NOREPINEPHRINE 4 MG in SODIUM CHLORIDE 0.9% 250 ML IV SCH (21:45)
--- NOTE | 2022-02-25 00:08 | P.CONS ---
History of Present Illness - Reason for Consult Consult date: 02/24/22 - Chief Complaint Fatigue - History of Present Illness Patient is a 76-year-old male who has a medical history of peripheral vascular disease, bilateral carotid disease. Patient is currently postop day #0 from endarterectomy by vascular surgery. Patient had right carotid endarterectomy with patch angioplasty. Patient is currently doing well postsurgery denies any nausea vomiting fever or chills no shortness of breath no headache no visual or mental changes. Review of Systems All systems: negative Past Medical History Past Medical History: Hyperlipidemia Additional Past Medical History / Comment(s): Exposure to agent orange. Carotid stenosis. History of Any Multi-Drug Resistant Organisms: None Reported Past Surgical History: Adenoidectomy, Tonsillectomy Additional Past Surgical History / Comment(s): Aortic valve replacement X 2. Cataract surgery. Hydrocele surgery,arch study,left carotid stent Past Anesthesia/Blood Transfusion Reactions: No Reported Reaction Additional Past Anesthesia/Blood Transfusion Reaction / Comm: no reaction to possible blood transfusion 1990s for heart surgery Smoking Status: Current some day smoker - Past Family History Mother Family Medical History: Cancer Father Family Medical History: Coronary Artery Disease (CAD) Medications and Allergies Home Medications Medication Instructions Recorded Confirmed Type Multivitamins, Thera [Multivitamin 1 tab PO DAILY 10/12/21 02/24/22 History (formulary)] Spironolactone 12.5 mg PO DAILY 10/12/21 02/24/22 History Warfarin [Coumadin] 5 mg PO DAILY 10/12/21 02/24/22 History Clopidogrel [Plavix] 75 mg PO DAILY #90 tab 10/15/21 02/24/22 Rx Potassium Gluconate [Potassium 99 mg PO DAILY 12/04/21 02/24/22 History Gluconate ER] Rosuvastatin [Crestor] 10 mg PO DAILY 12/04/21 02/24/22 History Albuterol Inhaler [Ventolin Hfa 2 puff INHALATION RT-QID PRN 02/23/22 02/24/22 History Inhaler] Aspirin 81 mg PO DAILY 02/23/22 02/24/22 History Enoxaparin [Lovenox] 60 mg SQ Q12H 02/23/22 02/24/22 History Ferrous Sulfate [Iron] 325 mg PO DAILY 02/23/22 02/24/22 History Allergies Allergy/AdvReac Type Severity Reaction Status Date / Time No Known Allergies Allergy Verified 02/24/22 07:20 Physical Exam Osteopathic Statement: *. No significant issues noted on an osteopathic structural exam other than those noted in the History and Physical/Consult. Vitals: Vital Signs Temp Pulse Pulse Pulse Resp BP BP 02/24/22 23:15 85 15 131/58 02/24/22 23:00 71 9 L 130/52 02/24/22 22:45 82 18 02/24/22 22:30 77 15 118/61 02/24/22 22:15 80 11 L 02/24/22 22:00 79 15 119/57 02/24/22 21:45 76 17 102/57 02/24/22 21:30 77 16 02/24/22 21:15 84 20 102/57 02/24/22 21:00 80 13 02/24/22 20:45 78 18 02/24/22 20:30 80 18 02/24/22 20:15 80 14 02/24/22 20:00 98 F 80 16 143/57 02/24/22 19:45 76 21 02/24/22 19:30 81 18 02/24/22 19:15 71 20 02/24/22 19:00 81 80 21 133/62 02/24/22 18:00 70 19 02/24/22 17:10 78 19 02/24/22 17:00 79 21 02/24/22 16:50 85 10 L 02/24/22 16:40 87 25 H 02/24/22 16:30 72 14 02/24/22 16:20 80 20 02/24/22 16:10 80 18 02/24/22 16:00 81 18 02/24/22 15:50 72 15 02/24/22 15:40 71 15 02/24/22 15:30 78 21 02/24/22 15:20 85 32 H 02/24/22 15:10 77 22 02/24/22 15:00 81 13 02/24/22 14:50 82 14 02/24/22 14:40 80 18 02/24/22 14:30 77 18 02/24/22 14:20 75 14 02/24/22 14:10 69 10 L 02/24/22 14:00 79 10 L 133/62 02/24/22 13:50 75 14 02/24/22 13:40 77 15 02/24/22 13:30 97.5 F L 80 19 02/24/22 13:20 81 15 02/24/22 13:10 79 20 02/24/22 13:00 79 20 02/24/22 12:50 80 15 02/24/22 12:21 76 16 127/38 02/24/22 12:06 81 16 134/41 02/24/22 11:51 81 18 136/41 02/24/22 11:36 88 16 139/42 02/24/22 11:21 92 16 152/47 02/24/22 11:06 97.1 F L 93 16 133/54 02/24/22 07:20 96.6 F L 94 18 158/66 BP BP BP BP Pulse Ox 02/24/22 23:15 90 L 02/24/22 23:00 93 L 02/24/22 22:45 90 L 02/24/22 22:30 96 02/24/22 22:15 95 02/24/22 22:00 95 02/24/22 21:45 96 02/24/22 21:30 97 02/24/22 21:15 97 02/24/22 21:00 95 02/24/22 20:45 94 L 02/24/22 20:30 95 02/24/22 20:15 95 02/24/22 20:00 94 L 02/24/22 19:45 94 L 02/24/22 19:30 94 L 02/24/22 19:15 91 L 02/24/22 19:00 129/75 143/79 91 L 02/24/22 18:00 128/69 98 02/24/22 17:10 97 02/24/22 17:00 97 02/24/22 16:50 93 L 02/24/22 16:40 97 02/24/22 16:30 98 02/24/22 16:20 98 02/24/22 16:10 96 02/24/22 16:00 97 02/24/22 15:50 100 02/24/22 15:40 98 02/24/22 15:30 95 02/24/22 15:20 94 L 02/24/22 15:10 92 L 02/24/22 15:00 96 02/24/22 14:50 94 L 02/24/22 14:40 97 02/24/22 14:30 96 02/24/22 14:20 94 L 02/24/22 14:10 97 02/24/22 14:00 96 02/24/22 13:50 96 02/24/22 13:40 97 02/24/22 13:30 97 02/24/22 13:20 96 02/24/22 13:10 96 02/24/22 13:00 95 02/24/22 12:50 96 02/24/22 12:21 98 02/24/22 12:06 100 02/24/22 11:51 99 02/24/22 11:36 100 02/24/22 11:21 100 02/24/22 11:06 99 02/24/22 07:20 154/69 91 L Intake and Output 02/24/22 02/24/22 02/25/22 14:59 22:59 06:59 Intake Total 1491.4 667.459 20 Output Total 50 425 0 Balance 1441.4 242.459 20 Intake: IV 1491.4 160 20 Lactated Ringers 1,000 ml 40 160 20 @ 20 mls/hr IV .Q24H [facility] Rx#:[id number] Intake, IV Titration 7.459 Amount Norepinephrine 4 mg In 7.459 Sodium Chloride 0.9% 250 ml @ 0.05 MCG/KG/MIN 10. 916 mls/hr IV .[id number] [facility] Rx#:[id number] Oral 500 Output: Urine 425 0 Estimated Blood Loss 50 Other: Voiding Method Urinal Urinal Urinal Weight 57.3 kg ABP, PAP, CO, CI - Last 8 Hours Arterial Blood Pressure 154/54 Arterial Blood Pressure 134/40 Arterial Blood Pressure 137/43 Arterial Blood Pressure 126/39 Arterial Blood Pressure 120/38 Arterial Blood Pressure 121/40 Arterial Blood Pressure 108/35 Arterial Blood Pressure 113/36 Arterial Blood Pressure 121/40 Arterial Blood Pressure 119/38 Arterial Blood Pressure 123/39 Arterial Blood Pressure 127/39 Arterial Blood Pressure 129/41 Arterial Blood Pressure 126/51 Arterial Blood Pressure 137/44 Arterial Blood Pressure 126/40 Arterial Blood Pressure 122/31 Arterial Blood Pressure 138/43 Arterial Blood Pressure 137/41 Arterial Blood Pressure 133/45 Arterial Blood Pressure 134/47 Arterial Blood Pressure 130/46 Arterial Blood Pressure 131/38 Arterial Blood Pressure 127/38 Arterial Blood Pressure 126/42 Arterial Blood Pressure 129/42 - Constitutional General appearance: cooperative, no acute distress - EENT Eyes: EOMI, PERRLA - Respiratory Respiratory: bilateral: CTA - Cardiovascular Rhythm: regular Heart sounds: normal: S1, S2 - Gastrointestinal General gastrointestinal: normal bowel sounds, soft - Neurologic Neurologic: CNII-XII intact - Psychiatric Psychiatric: A&O x's 3, intact judgment & insight Results Labs: Abnormal Lab Results - Last 24 Hours (Table) 02/24/22 02/24/22 Range/Units 11:19 12:41 POC Glucose (mg/dL) 127 H 126 H (75-99) mg/dL Assessment and Plan (1) Bilateral carotid artery stenosis Current Visit: No Status: Acute Code(s): I65.23 - OCCLUSION AND STENOSIS OF BILATERAL CAROTID ARTERIES SNOMED Code(s): 500852014 Plan: Carotid stenosis -Patient is status post right carotid enterectomy with patch angioplasty postop day #0 by vascular surgery -Post surgical recommendations per surgical team -Continue with aspirin and statin, Plavix per surgical team. COPD -Stable without evidence of exacerbation. Currently on room air -Continue with DuoNeb's when necessary Hypertension -Stable. Patient's currently on pressor therapy and ICU to maintain map goal blood pressure per vascular surgery team Hyperlipidemia Statin therapy DVT prophylaxis: Patient resumed on Coumadin therapy by vascular surgery team. Pharmacy to dose, currently patient is on Lanoxin. 60 mg subcu every 12 Disposition: Patient is currently postop day #0 from carotid enterectomy. Currently in intensive care unit. We'll check postop day 1 labs.
[2022-02-25] MEDS ORDERED: MAG HYDROX/AL HYDROX/SIMETH 30 ML CUP PO PRN (00:58)
[2022-02-25] MEDS ORDERED: ONDANSETRON 4 MG/2 ML VIAL IVP PRN (01:00)
[2022-02-25] MEDS ORDERED: FAMOTIDINE 20 MG TAB PO SCH (01:15)
[2022-02-25 06:07] LABS: Anisocytosis Slight; Basophils % (A) 0 %; Eosinophils % (A) 0 %; HCT 31.6 % (39.0-53.0); Hypochromasia Marked; Lymphocytes # (A) 1.2 k/uL (1.0-4.8); Lymphocytes % (A) 10 %; MCH 23.3 pg (25.0-35.0); MCHC 28.4 g/dL (31.0-37.0); Monocytes % (A) 8 %; Neutrophils # (A) 9.6 k/uL (1.3-7.7); Neutrophils % (A) 79 %; Platelet Count 170 k/uL (150-450); Poikilocytosis Slight; RBC 3.85 m/uL (4.30-5.90); WBC 12.1 k/uL (3.8-10.6)
[2022-02-25] MEDS: LACTATED RINGERS 1,000 ML IV SCH (06:15)
[2022-02-25 06:24] LABS: African American GFR (CKD) >90 (>60 ml/min/1.73 sqM); Anion Gap 3 mmol/L; Blood Urea Nitrogen 9 mg/dL (9-20); Calcium 8.1 mg/dL (8.4-10.2); Carbon Dioxide 36 mmol/L (22-30); Chloride 97 mmol/L (98-107); Glucose 105 mg/dL (74-99); Non-African American GFR(CKD) >90 (>60 ml/min/1.73 sqM); Potassium 4.1 mmol/L (3.5-5.1); Sodium 136 mmol/L (137-145)
[2022-02-25] MEDS: SPIRONOLACTONE 25 MG TAB PO SCH (08:26)
[2022-02-25] MEDS: ENOXAPARIN 60 MG/0.6 ML SYRINGE SQ SCH (08:27)
[2022-02-25] MEDS: CLOPIDOGREL 75 MG TAB PO SCH (08:27)
[2022-02-25] MEDS ORDERED: ASPIRIN 81 MG PO SCH (09:00)
[2022-02-25] MEDS ORDERED: FERROUS SULFATE 325 MG TAB PO SCH (09:00)
[2022-02-25] MEDS ORDERED: ATORVASTATIN 20 MG TAB PO SCH (09:00)
[2022-02-25] MEDS ORDERED: POTASSIUM CHLORIDE ER 10 MEQ TAB.ER.PRT PO SCH (09:00)
[2022-02-25] MEDS ORDERED: MULTIVITAMINS, THERA 1 EACH TAB PO SCH (09:00)
--- NOTE | 2022-02-25 11:08 | CONS ---
CONSULTATION HISTORY OF PRESENT ILLNESS: Kane is a 76-year-old gentleman with history of carotid stenosis, COPD, mechanical aortic valve replacement, hypertension, and dyslipidemia who underwent right carotid endarterectomy yesterday and we have been consulted because of his mechanical aortic valve. The patient was on Coumadin at home, had been bridged with Lovenox 60 mg b.i.d. and Coumadin had been on hold. The patient was on aspirin, Plavix, Coumadin, Crestor, and spironolactone. He has had uneventful surgery. This morning he is free of symptoms. The plan is to send him home on Lovenox, resume his Coumadin. He is going to have INR checked in our office Tuesday and continue with the anticoagulant management from there. The vascular surgeon is fine with the patient going home on Lovenox. The patient is currently free of cardiac symptoms. PAST MEDICAL HISTORY: Significant for aortic valve replacement, hypertension, dyslipidemia. MEDICATIONS: Medications at home included: Coumadin, spironolactone, Crestor, K-Dur, iron, Plavix aspirin and Ventolin. ALLERGIES: There are no known drug allergies. FAMILY HISTORY: Negative for premature coronary artery disease. SOCIAL HISTORY: Negative for current smoking, EtOH abuse or drug abuse. REVIEW OF SYSTEMS: HEENT is unremarkable. Cardiac as described above. Respiratory negative. GI negative. Genitourinary negative. Allergy/Immunology negative. Skin negative. Musculoskeletal significant for arthritis. Psychosocial negative. Derm negative. Constitutional negative. Oncological negative. SHOE COBBLER: Negative. EXAM: Comfortable at rest. Afebrile. Vital signs are stable. There is jugular venous distention. Carotid upstroke is diminished on the left side. Right carotid is covered by a dressing. Examination extremities did not reveal any edema. Abdomen is soft. Chest exam reveals good air entry bilaterally. Heart exam: Heart sounds mechanical valve heard. Labs show that the hemoglobin is 9, potassium is 4.1, Creatinine is 0.56. ASSESSMENT: 1. Carotid stenosis status post right carotid endarterectomy. 2. History of aortic valve replacement. 3. Hypertension. 4. Dyslipidemia. PLAN: Patient will be discharged home on bridging doses of Lovenox. INR will be followed in our office. MMODL / IJN: [id number] /
--- NOTE | 2022-02-25 11:44 | P.DS ---
Providers Date of admission: 02/24/22 06:37 Expected date of discharge: 02/25/22 Attending physician: Barry Khan DO Consults: 02/24/22 11:14 Consult Physician Routine Consulting Provider: Valerio Dias Consult Reason/Comments: Medical management, s/p carotid endartectomy Do you want consulting provider notified?: Yes 02/24/22 11:16 Consult Physician Routine Consulting Provider: Mauro Abraham Consult Reason/Comments: Hx aortic valve, s/p Carotid endartectomy Do you want consulting provider notified?: Yes Primary care physician: [facility] Course: This a pleasant 76-year-old male who was scheduled for carotid endarterectomy with patch angioplasty for hemodynamically severe right ICA stenosis. His past medical history includes occlusion and stenosis of bilateral carotid arteries, chronic obstructive pulmonary disease, personal history of nicotine dependence, aortic valve prosthesis present, hyperlipidemia, and essential hypertension. Patient follows with Dr. Armstrong from cardiology and he has been on Coumadin in the past. Cardiology was consulted for further management of Coumadin related to heart valve. Patient is postop day #1 for right carotid endarterectomy with patch angioplasty. He had some hypotension throughout the night and was given levophed with improvement. It has been discontinued this morning and his blood pressures have been stable 134/62 heart rate 88 oxygen 95% on room air. The patient denies any shortness of breath, chest pain, abdominal pain, nausea or vomiting. He has been voiding on his own. Cardiology has seen patient and cleared him for discharge on Coumadin with Lovenox to bridge. They will manage this outpatient. Patient denies any focal deficits. Pain is well managed. Patient would like to be discharged today. Plan is for discharge home after lunch. General appearance: The patient is alert, oriented, appears in no acute distress. HET: Head is normocephalic and atraumatic. Pupils are equal and reactive. Neck: Supple without lymphadenopathy. Trachea midline. Right side of neck with dressing clean dry and intact. Heart: S1 S2. Regular rate and rhythm. Lungs: Clear to auscultation bilaterally. Abdomen: Soft, nontender, nondistended. Extremities: Normal skin color and turgor. Bilateral palpable radial pulses. Neurological: No focal deficits. Strength and sensation are grossly intact. The impression and plan of care has been dictated as directed. Dr. Castañeda I performed a history and examination of this patient, discussed the same with the dictator. I agree with the dictator's note ,documented as a scribe. Any additional findings or plans will be noted. Procedures: Right carotid endarterectomy with patch angioplasty Patient Condition at Discharge: Stable Plan - Discharge Summary New Discharge Prescriptions: Continue Multivitamins, Thera [Multivitamin (formulary)] 1 tab PO DAILY Warfarin [Coumadin] 5 mg PO DAILY Spironolactone 12.5 mg PO DAILY Potassium Gluconate [Potassium Gluconate ER] 99 mg PO DAILY Clopidogrel [Plavix] 75 mg PO DAILY #90 tab Rosuvastatin [Crestor] 10 mg PO DAILY Aspirin 81 mg PO DAILY Ferrous Sulfate [Iron] 325 mg PO DAILY Albuterol Inhaler [Ventolin Hfa Inhaler] 2 puff INHALATION RT-QID PRN PRN Reason: sob Enoxaparin [Lovenox] 60 mg SQ Q12H #10 each Discharge Medication List Multivitamins, Thera [Multivitamin (formulary)] 1 tab PO DAILY 10/12/21 [Hi story] Spironolactone 12.5 mg PO DAILY 10/12/21 [History] Warfarin [Coumadin] 5 mg PO DAILY 10/12/21 [History] Clopidogrel [Plavix] 75 mg PO DAILY #90 tab 10/15/21 [Rx] Potassium Gluconate [Potassium Gluconate ER] 99 mg PO DAILY 12/04/21 [History] Rosuvastatin [Crestor] 10 mg PO DAILY 12/04/21 [History] Albuterol Inhaler [Ventolin Hfa Inhaler] 2 puff INHALATION RT-QID PRN 02/23/22 [History] Aspirin 81 mg PO DAILY 02/23/22 [History] Ferrous Sulfate [Iron] 325 mg PO DAILY 02/23/22 [History] Enoxaparin [Lovenox] 60 mg SQ Q12H #10 each 02/25/22 [Rx] Follow up Appointment(s)/Referral(s): Tunde Verduzco DO [Primary Care Provider] - 1 Week Mauro Abraham MD [STAFF PHYSICIAN] - 03/01/22 Barry Khan DO [Doctor of Osteopathic Medicine] - 2 Weeks Patient Instructions/Handouts: Carotid Endarterectomy (DC) Activity/Diet/Wound Care/Special Instructions: No driving for 3-4 days Avoid heavy lifting greater than 10 lbs , pushing, pulling, straining, flights of stairs for three days. ok to shower tomorrow but no baths, pools, soaking in tubs for three days to avoid risk of infection. signs of infection ie: fever, rash, drainage from puncture site, swelling contact doctor or return to ER immediately. May return back to work 03/08/2022 Discharge Disposition: HOME SELF-CARE
[2022-02-25 11:56] LABS: INR 1.1 (<1.2); Prothrombin Time 11.5 sec (9.0-12.0)
[2022-02-25 12:03] VITALS: TEMP 98.3
--- NOTE | 2022-02-25 12:41 | P.PN ---
Subjective Progress Note Date: 02/25/22 - History of Present Illness Patient is a 76-year-old male who has a medical history of peripheral vascular disease, bilateral carotid disease. Patient is currently postop day #0 from endarterectomy by vascular surgery. Patient had right carotid endarterectomy with patch angioplasty. Patient is currently doing well postsurgery denies any nausea vomiting fever or chills no shortness of breath no headache no visual or mental changes. Interval history: Patient was seen and examined at the bedside. He denies any chest pain or shortness of breath. He is postoperative day #1. Patient is being discharged today by primary vascular surgery team. Discussed with cardiology at the bedside. Recommended the patient to be discharged on Coumadin bridging with Lovenox until INR therapeutic. Physical examination: General: non toxic, no distress, appears at stated age Derm: warm, dry Head: atraumatic, normocephalic, symmetric. Status post right carotid endarterectomy Eyes: EOMI, no lid lag, anicteric sclera Mouth: no lip lesion, mucus membranes moist Cardiovascular: S1S2 reg, no murmur, positive posterior tibial pulse bilateral, Lungs: CTA bilateral, no rhonchi, no rales , no accessory muscle use Abdominal: soft, nontender to palpation, no guarding, no appreciable organomegaly Ext: no gross muscle atrophy, no edema, no contractures Neuro: CN II-XI grossly intact, no focal neuro deficits Psych: Alert, oriented, appropriate affect Assessment and plan: Carotid stenosis status post right carotid endarterectomy postoperative day #1 -Patient is hemodynamically stable. Has been cleared for discharge by primary vascular team and cardiology -Post surgical recommendations per surgical team -Continue with aspirin and statin, Plavix per surgical team. -Cardiology recommended the patient to be restarted on Coumadin with Lovenox bridging to achieve therapeutic INR due to underlying history of mechanical aortic valve Mechanical aortic valve -Patient discharged home with Lovenox bridging to Coumadin until INR therapeutic. -Cardiology is patient to check INR at the dietary services manager's office on Tuesday. COPD -Stable without evidence of exacerbation. Currently on room air -Continue with DuoNeb's when necessary Hypertension -Stable. Patient's currently on pressor therapy and ICU to maintain map goal blood pressure per vascular surgery team Hyperlipidemia Statin therapy Objective - Vital Signs Vital signs: Vital Signs Temp 98.3 F 02/25/22 12:00 Pulse 83 06/16/22 12:00 Resp 21 02/25/22 12:00 BP 126/60 02/25/22 12:00 Pulse Ox 91 L 02/25/22 12:00 FiO2 Intake & Output 02/24/22 02/25/22 02/25/22 18:59 06:59 18:59 Intake Total 2071.4 290.456 340.073 Output Total 125 675 200 Balance 1946.4 -384.544 140.073 Weight 57.3 kg 60.8 kg Intake: IV 1571.4 260 100 Lactated Ringers 1,000 ml 120 260 100 @ 20 mls/hr IV .Q24H [facility] Rx#:[id number] Intake, IV Titration 30.456 0.073 Amount Norepinephrine 4 mg In 30.456 0.073 Sodium Chloride 0.9% 250 ml @ 0.05 MCG/KG/MIN 10. 916 mls/hr IV .[id number] [facility] Rx#:[id number] Oral 500 240 Output: Urine 75 675 200 Post Void Residual 0 Estimated Blood Loss 50 Other: Voiding Method Urinal Urinal ABP, PAP, CO, CI - Last Documented Arterial Blood Pressure 145/44 - Labs CBC & Chem 7: 02/25/22 05:50 02/25/22 05:50 Labs: Abnormal Lab Results - Last 24 Hours (Table) 02/24/22 02/25/22 02/25/22 Range/Units 12:41 05:50 05:50 WBC 12.1 H (3.8-10.6) k/uL RBC 3.85 L (4.30-5.90) m/uL Hgb 9.0 L (13.0-17.5) gm/dL Hct 31.6 L (39.0-53.0) % MCH 23.3 L (25.0-35.0) pg MCHC 28.4 L (31.0-37.0) g/dL RDW 17.0 H (11.5-15.5) % Neutrophils # 9.6 H (1.3-7.7) k/uL Sodium 136 L (137-145) mmol/L Chloride 97 L (98-107) mmol/L Carbon Dioxide 36 H (22-30) mmol/L Creatinine 0.56 L (0.66-1.25) mg/dL Glucose 105 H (74-99) mg/dL POC Glucose (mg/dL) 126 H (75-99) mg/dL Calcium 8.1 L (8.4-10.2) mg/dL
[2022-02-25 14:28] VITALS: BP 126/58; PULSE 114; RESP 23
[2022-02-25] MEDS ORDERED: WARFARIN 5 MG TAB PO ONE (18:00)
== END 2022-02-25 14:30 | disposition home or self-care (01) | DRG 39 ==
LOC: 2ORMAIN 06:37 → 2SICU 12:04
PROVIDERS: ADMIT Surgery; ATTEND Surgery
PROC: 03UM0JZ Supplement Right External Carotid Artery with Synthetic Substitute, Open Approach (ICD-10-PCS; principal; 2022-02-24 08:30)
PROC: 3E033XZ Introduction of Vasopressor into Peripheral Vein, Percutaneous Approach (ICD-10-PCS; principal; 2022-02-24 08:30)
PROC: 03CM0ZZ Extirpation of Matter from Right External Carotid Artery, Open Approach (ICD-10-PCS; principal; 2022-02-24 08:30)
DX: I65.23 Occlusion and stenosis of bilateral carotid arteries (principal); E78.5 Hyperlipidemia, unspecified; F17.210 Nicotine dependence, cigarettes, uncomplicated; I25.10 Atherosclerotic heart disease of native coronary artery without angina pectoris; E78.00 Pure hypercholesterolemia, unspecified; I73.9 Peripheral vascular disease, unspecified; J44.9 Chronic obstructive pulmonary disease, unspecified; I10 Essential (primary) hypertension; G47.30 Sleep apnea, unspecified; H91.90 Unspecified hearing loss, unspecified ear; Z79.01 Long term (current) use of anticoagulants; Z79.02 Long term (current) use of antithrombotics/antiplatelets; Z79.82 Long term (current) use of aspirin; Z79.899 Other long term (current) drug therapy; Z82.49 Family history of ischemic heart disease and other diseases of the circulatory system; Z95.2 Presence of prosthetic heart valve; Z98.49 Cataract extraction status, unspecified eye
CPT/HCPCS: 80048; 85025; 85610; 86850; 86900; 86901; 88304; 88311

== ENCOUNTER → 2022-03-09 | Outpatient (CLI) | payer OTHER ==
--- NOTE | 2022-03-09 15:41 | US ---
EXAMINATION TYPE: US abdomen complete DATE OF EXAM: 03/09/2022 COMPARISON: NONE CLINICAL HISTORY: 76-year-old male R10.84 GENERALIZED ABD PAIN. EXAM MEASUREMENTS: Liver Length: 14.8 cm Gallbladder Wall: 0.1 cm CBD: 5.6 mm Spleen: 9.9 cm Right Kidney: 9.5 x 4.1 x 4.5 cm Left Kidney: 10.6 x 5.3 x 4.5 cm Pancreas: Tail obscured by overlying bowel gas. Main pancreatic duct upper limits of normal in calib er at 2.8 mm Liver: wnl Gallbladder: Multiple small layering stones/gravel. No abnormal distention, wall thickening, or surr ounding fluid. Evidence for sonographic Lewis's sign: neg CBD: wnl Spleen: wnl Right Kidney: Echogenic 9 mm focus of the midpole. Multiple cortical cysts are present, largest uppe r pole = 2.1 x 2.0 cm Left Kidney: A few scattered cysts are seen. Largest lateral lower pole = 1.3 x 1.7 x 1.3 cm Upper IVC: wnl Abd Aorta: Distal obscured by overlying bowel gas IMPRESSION: 1. Cholelithiasis with numerous small layering gallstones/gravel. No ancillary findings of acute chol ecystitis. 2. Bile duct upper limits of normal in caliber measuring 6 mm, acceptable for patient's age. 3. Main pancreatic duct upper limits of normal in caliber at 2.8 mm. Consider precautionary three-mon th follow-up to reassess. In the meantime, correlate with amylase and lipase levels. 4. Nonobstructive 9 mm right renal stone. Scattered bilateral renal cortical cysts measuring up to 2. 1 cm.
== END | disposition home or self-care (01) ==
LOC: RADUSWWP 07:18
DX: R10.84 Generalized abdominal pain (principal)
CPT/HCPCS: 76700

== ENCOUNTER 2022-05-14 12:06 | Day surgery (SDC) | payer MEDICARE, OTHER ==
--- NOTE | 2022-05-14 07:01 | P.GSHP ---
History of Present Illness H&P Date: 05/14/22 CHIEF COMPLAINT: Cholecystitis HISTORY OF PRESENT ILLNESS: The patient is a 76-year-old male who presents with history of epigastric including right upper quadrant abdominal pain for over 3 months. He underwent diagnostic studies for the gallbladder. Separately his clinical picture was consistent with cholecystitis on ultrasound. Now he presents for surgical intervention. PAST MEDICAL HISTORY: Please see list PAST SURGICAL HISTORY: Please see list MEDICATIONS: Please see list ALLERGIES: Denies. SOCIAL HISTORY: No illicit drug use FAMILY HISTORY: Pertinent for gallbladder disease REVIEW OF ORGAN SYSTEMS: CONSTITUTIONAL: No reports of fevers or chills. HEENT: Has trouble with vision ENDOCRINE: No reports of hypothyroidism. No diabetes. RESPIRATORY: No recent pneumonias. CARDIOVASCULAR: Has extensive cardiac history with cardiac risk assessment obtained. GI: No blood in stools or constipation. MUSCULOSKELETAL: Has joint pain including back pain. NEURO: No seizure disorders or headaches. PSYCH: No depression or suicidal ideation. HEMATOLOGIC: No personal or family history of DVTs or pulmonary emboli. PHYSICAL EXAM: VITAL SIGNS: Afebrile vital signs stable GENERAL: Well-developed pleasant male in no acute distress. HEENT: No scleral icterus. Extraocular movements grossly intact. Moist buccal mucosa. NECK: Supple without lymphadenopathy. CHEST: Unlabored respirations. Equal bilateral excursions. CARDIOVASCULAR: Distal 2+ pulses. ABDOMEN: Soft, nondistended. Tender along the epigastrium and right upper quadrant. MUSCULOSKELETAL: No clubbing, cyanosis, or edema. NEURO : No focal or lateralizing signs. Cranial nerves II-12 within normal limi ts. PSYCH: Alert and oriented to person, place and time. SKIN: Well perfused. Good skin turgor. ASSESSMENT: 1. Epigastric and right upper quadrant abdominal pain due to gallstones 2. Chronic cholecystitis PLAN: 1. Will need a robotic cholecystectomy possible open. Benefits and risks were described. 2. Heparin for DVT prophylaxis 5000 units. 3. Antibiotic prophylaxis. 4. He is elevated risk due to extensive cardiovascular co-morbidities Past Medical History Past Medical History: Coronary Artery Disease (CAD), Hyperlipidemia, Hypertension Additional Past Medical History / Comment(s): Exposure to agent orange. Carotid stenosis. History of Any Multi-Drug Resistant Organisms: None Reported Past Surgical History: Adenoidectomy, Tonsillectomy Additional Past Surgical History / Comment(s): Aortic valve replacement X 2 ( wrong valve the first time). Cataract surgery. Hydrocele surgery,arch study,left carotid stent. azra carotidendartectomy Past Anesthesia/Blood Transfusion Reactions: No Reported Reaction Additional Past Anesthesia/Blood Transfusion Reaction / Comment(s): no reaction to possible blood transfusion 1990s for heart surgery Smoking Status: Former smoker - Past Family History Mother Family Medical History: Cancer Father Family Medical History: Coronary Artery Disease (CAD) Medications and Allergies Home Medications Medication Instructions Recorded Confirmed Type Multivitamins, Thera [Multivitamin 1 tab PO DAILY 10/12/21 05/13/22 History (formulary)] Spironolactone 12.5 mg PO DAILY 10/12/21 05/13/22 History Warfarin [Coumadin] 5 mg PO DAILY 10/12/21 05/13/22 History Clopidogrel [Plavix] 75 mg PO DAILY #90 tab 10/15/21 05/13/22 Rx Rosuvastatin [Crestor] 10 mg PO DAILY 12/04/21 05/13/22 History Albuterol Inhaler [Ventolin Hfa 2 puff INHALATION RT-QID PRN 02/23/22 05/13/22 History Inhaler] Ferrous Sulfate [Iron] 325 mg PO DAILY 02/23/22 05/13/22 History Enoxaparin [Lovenox] 60 mg SQ Q12H #10 each 02/25/22 05/13/22 Rx carvediloL 12.5 mg PO BID 05/13/22 05/13/22 History Allergies Allergy/AdvReac Type Severity Reaction Status Date / Time No Known Allergies Allergy Verified 05/13/22 10:40
--- NOTE | 2022-05-14 07:47 | P.HPADDEND ---
H&P Addendum H&P Addendum Date: 05/14/22 Patient has history of leukocytosis from prior visits. We'll repeat CBC and CMP. Otherwise cardiac risk assessment obtained. Nonnarcotic pain management with Tylenol initiated. Patient's elevated risk due to pre-existing cardiac disease.
[~2022-05-14 12:06] MED LIST: ACETAMINOPHEN TAB 500 MG TAB PO PRN; DEXAMETHASONE SOD PHOSPHATE 4 MG/ML 1 ML VIAL IV ONE; HEPARIN SODIUM,PORCINE/PF 5,000 UNIT/0.5 ML SYRINGE SQ PRN; HYDROmorphone 0.5 MG/0.5 ML SYRINGE IVP PRN; INDOCYANINE GREEN 25 MG VIAL IV STA; LACTATED RINGERS 1,000 ML IV SCH; MIDAZOLAM 2 MG/2 ML VIAL IV PRN; ONDANSETRON 4 MG/2 ML VIAL IVP ONE; TAMSULOSIN 0.4 MG CAP.ER.24H PO PRN
[2022-05-14 12:40] VITALS: TEMP 97.9
[2022-05-14 13:15] LABS: Anisocytosis Moderate; Basophils % (A) 1 %; Eosinophils # (A) 0.1 k/uL (0-0.7); Eosinophils % (A) 2 %; HCT 48.6 % (39.0-53.0); HGB 14.8 gm/dL (13.0-17.5); Hypochromasia Marked; Lymphocytes # (A) 1.5 k/uL (1.0-4.8); Lymphocytes % (A) 21 %; MCH 28.6 pg (25.0-35.0); MCHC 30.4 g/dL (31.0-37.0); MCV 93.9 fL (80.0-100.0); Mean Platelet Volume 9.3; Microcytosis Slight; Monocytes # (A) 0.5 k/uL (0-1.0); Monocytes % (A) 7 %; Neutrophils # (A) 4.6 k/uL (1.3-7.7); Neutrophils % (A) 67 %; Platelet Count 172 k/uL (150-450); RBC 5.17 m/uL (4.30-5.90); RDW 20.4 % (11.5-15.5); WBC 6.9 k/uL (3.8-10.6)
[2022-05-14 13:20] LABS: ALT 27 U/L (4-49); AST 37 U/L (17-59); African American GFR (CKD) >90 (>60 ml/min/1.73 sqM); Albumin 4.2 g/dL (3.5-5.0); Alkaline Phosphatase 87 U/L (38-126); Anion Gap 7 mmol/L; Blood Urea Nitrogen 12 mg/dL (9-20); Calcium 9.4 mg/dL (8.4-10.2); Carbon Dioxide 38 mmol/L (22-30); Chloride 94 mmol/L (98-107); Glucose 101 mg/dL (74-99); Non-African American GFR(CKD) >90 (>60 ml/min/1.73 sqM); Partial Thromboplastin Time 26.9 sec (22.0-30.0); Potassium 4.3 mmol/L (3.5-5.1); Prothrombin Time 10.8 sec (9.0-12.0); Sodium 139 mmol/L (137-145); Total Bilirubin 0.6 mg/dL (0.2-1.3); Total Protein 6.9 g/dL (6.3-8.2)
[2022-05-14] MEDS ORDERED: ALBUTEROL NEBULIZED 2.5 MG/3 ML INHALATION STA (13:41)
[2022-05-14 13:53] VITALS: BP 104/53
[2022-05-14 14:55] VITALS: RESP 18
[2022-05-14 14:58] VITALS: PULSE 79
--- NOTE | 2022-05-14 15:04 | XR ---
EXAMINATION TYPE: XR chest 1V portable DATE OF EXAM: 05/14/2022 COMPARISON: NONE HISTORY: Hypoxia. TECHNIQUE: Single AP frontal upright view of the chest is obtained. FINDINGS: There is chronic parenchymal change without suspicious focal air space opacity, pleural ef fusion, or pneumothorax seen. Overlying sternal wires are present. The cardiac silhouette size is wit hin normal limits with atherosclerotic change aortic knob. The osseous structures are demineralized . IMPRESSION: No acute process.
--- NOTE | 2022-05-14 15:45 | P.PN ---
Subjective Progress Note Date: 05/14/22 CHIEF COMPLAINT: Right upper quadrant abdominal pain HISTORY OF PRESENT ILLNESS: The patient is a 76-year-old male who presented to the hospital right quadrant abdominal pain. During assessment with anesthesia, patient O2 sat was in the 70s. He is given breathing treatments were oxygen saturation is in the 80s. His oxygen saturation drops in the 70s after breathing treatments. Patient denies any chest pain. He was at bedside. ROS: No reports of nausea and vomiting. No bowel movements. No fevers or chills. No new chest pain. No productive sputum PHYSICAL EXAM: VITAL SIGNS: Reviewed CONSTITUTIONAL: Well developed and in no acute distress. Cachectic. EYES: Conjuctivae without sclera icterus. Extraocular movements grossly intact. HEAD, EARS, NOSE, THROAT: Moist buccal mucosa. Head is atraumatic, normocephalic. Hears conversational speech. No nasal drainage. RESPIRATORY: Non-labored respirations and equal bilateral excursions. CARDIOVASCULAR: Palpable 2+ radial pulses. ABDOMEN: Mild tenderness right upper quadrant. No peritonitis. MUSCULOSKELETAL: No gross deformity of the lower extremities noted. No clubbing. No cyanosis. SKIN: Good skin turgor. Well perfused. NEUROLOGIC: Cranial nerves II through XII grossly intact. No focal or lateralizing signs. PSYCH: Appropriate affect. Alert and oriented to person, place and time. CLINICAL LABS: Reviewed. CO2 elevated at 38. CBC normal. ASSESSMENT: 1. Hypercarbia with hypoxia 2. Severe chronic obstructive pulmonary disease 3. Symptomatic gallstones PLAN: 1. After further discussion with anesthesia and the patient, surgery is canceled due to severe pulmonary impairment and chronic obstructive pulmonary disease. 2. Chest x-ray ordered and obtained without pneumonia. 3. Patient reports she'll follow up with his primary care provider. 4. Case will be scheduled after pulmonary clearance and assessment. Objective - Vital Signs Vital signs: Vital Signs Temp 97.9 F 05/14/22 12:36 Pulse 79 05/14/22 14:58 Resp 18 05/14/22 14:58 BP 104/53 05/14/22 13:49 Pulse Ox 92 L 05/14/22 14:58 FiO2 Intake & Output 05/13/22 05/14/22 05/14/22 18:59 06:59 18:59 Intake Total 100 Balance 100 Weight 54.885 kg 53.3 kg Intake: IV 100 - Labs CBC & Chem 7: 05/14/22 12:58 05/14/22 12:58 Labs: Abnormal Lab Results - Last 24 Hours (Table) 05/14/22 05/14/22 Range/Units 12:58 12:58 MCHC 30.4 L (31.0-37.0) g/dL RDW 20.4 H (11.5-15.5) % Chloride 94 L (98-107) mmol/L Carbon Dioxide 38 H (22-30) mmol/L Glucose 101 H (74-99) mg/dL
== END 2022-05-14 15:36 | disposition home or self-care (01) ==
LOC: OR 12:06
PROVIDERS: ATTEND Surgery Plastic and Reconstructive Surgery
DX: K80.10 Calculus of gallbladder with chronic cholecystitis without obstruction (principal); Z53.09 Procedure and treatment not carried out because of other contraindication; R06.02 Shortness of breath; J44.9 Chronic obstructive pulmonary disease, unspecified; E78.5 Hyperlipidemia, unspecified; I65.29 Occlusion and stenosis of unspecified carotid artery; I25.10 Atherosclerotic heart disease of native coronary artery without angina pectoris; I10 Essential (primary) hypertension; Z95.2 Presence of prosthetic heart valve; Z87.891 Personal history of nicotine dependence; Z80.9 Family history of malignant neoplasm, unspecified; Z79.01 Long term (current) use of anticoagulants; Z79.899 Other long term (current) drug therapy; Z79.82 Long term (current) use of aspirin; Z82.49 Family history of ischemic heart disease and other diseases of the circulatory system
CPT/HCPCS: 94640; 80053; 85025; 85610; 85730; 71045; J1100; J2405

== ENCOUNTER 2024-01-15 15:38 | Inpatient (IN) | payer MEDICARE ==
--- NOTE | 2024-01-15 16:38 | ED ---
SOB HPI - General Chief Complaint: Shortness of Breath Stated Complaint: Difficulty breathing Time Seen by Provider: 01/15/24 16:18 Source: patient, RN notes reviewed Mode of arrival: wheelchair Limitations: no limitations - History of Present Illness Initial Comments: 78-year-old male with a history of COPD/emphysema history of heart disease aortic valve replacement hypertension who was an inpatient at [facility] for 3 days for left AGAINST MEDICAL ADVICE last night he states due to care issues. He states he has been short of breath since last evening he has a cough with green phlegm he states he is cold all the time but he is on blood thinners he states no chills or sweats. He is coughing up the green phlegm he is also had some mild intermittent chest discomfort which is dull in nature anterior chest nonradiating. None at this time. He does not recall them saying he had pneumonia just COPD. Records are pending from [facility]. No other modifying factors at this time. He was found to be hypoxemic at tr iage on room air he is not on home oxygen. MD Complaint: shortness of breath, cough - Related Data Home Medications Medication Instructions Recorded Confirmed Multivitamins, Thera [Multivitamin 1 tab PO DAILY 10/12/21 01/15/24 (formulary)] Warfarin [Coumadin] 5 mg PO DAILY 10/12/21 01/15/24 carvediloL 12.5 mg PO BID 05/13/22 01/15/24 Fluticasone/Umeclidin/Vilanter 1 puff INHALATION RT-DAILY 01/15/24 01/15/24 [[facility]-62.5-25] Rosuvastatin Calcium [Crestor] 40 mg PO DAILY 01/15/24 01/15/24 lisinopriL [Zestril] 2.5 mg PO DAILY 01/15/24 01/15/24 ursodioL [Ursodiol] 300 mg PO BID 01/15/24 01/15/24 Allergies Allergy/AdvReac Type Severity Reaction Status Date / Time No Known Allergies Allergy Verified 01/15/24 17:28 Review of Systems ROS Statement: Those systems with pertinent positive or pertinent negative responses have been documented in the HPI. ROS Other: All systems not noted in ROS Statement are negative. Past Medical History Past Medical History: Coronary Artery Disease (CAD), COPD, Hyperlipidemia, Hypertension Additional Past Medical History / Comment(s): Exposure to agent orange. Carotid stenosis. 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 Cataract surgery. Hydrocele surgery,arch study,left carotid stent. azra carotidendartectomy Past Anesthesia/Blood Transfusion Reactions: No Reported Reaction Additional Past Anesthesia/Blood Transfusion Reaction / Comment(s): no reaction to possible blood transfusion 1990s for heart surgery Past Psychological History: No Psychological Hx Reported Smoking Status: Former smoker - Past Family History Mother Family Medical History: Cancer Father Family Medical History: Coronary Artery Disease (CAD) General Exam - General Exam Comments Initial Comments: This is a well-developed thin appearing male who is awake alert oriented x 4 Limitations: no limitations General appearance: alert, anxious, in distress Head exam: Present: atraumatic, normocephalic, normal inspection Eye exam: Present: normal appearance, PERRL, EOMI. Absent: scleral icterus, conjunctival injection, periorbital swelling ENT exam: Present: mucous membranes dry Neck exam: Present: normal inspection, full ROM, other (No stridor JVD or bruits). Absent: tenderness, meningismus, lymphadenopathy Respiratory exam: Present: decreased breath sounds. Absent: respiratory distress, wheezes, rales, rhonchi, stridor Cardiovascular Exam: Present: regular rate, normal rhythm, normal heart sounds. Absent: systolic murmur, diastolic murmur, rubs, gallop, clicks GI/Abdominal exam: Present: soft, normal bowel sounds. Absent: distended, tenderness, guarding, rebound, rigid Extremities exam: Present: normal inspection, full ROM, normal capillary refill. Absent: tenderness, pedal edema, joint swelling, calf tenderness Back exam: Present: normal inspection Neurological exam: Present: alert, oriented X3, CN II-XII intact Psychiatric exam: Present: normal affect, normal mood Skin exam: Present: warm, dry, intact, normal color. Absent: rash Course Vital Signs 01/15/24 01/15/24 16:02 18:06 Temperature 97.7 F Pulse Rate 95 91 Respiratory 26 H 20 Rate Blood Pressure 179/81 120/73 O2 Sat by Pulse 80 L 3 L Oximetry Medical Decision Making - Medical Decision Making Patient is feeling improved after oxygenation nebulizer has been ordered Lasix has been ordered patient's x-ray was negative for acute process other than COPD/emphysema which is not acute is chronic. No focal consolidation seen. He does have elevated BNP he does have elevated troponin however review of the charting from [facility] reveals that it is likely trending downward. I did discuss the case with Dr. Sanders who the patient was admitted to at [facility] patient will be readmitted with cardiology consultation. Was pt. sent in by a medical professional or institution (, PA, LPN PER DIEM, urgent care, hospital, or long-term...) When possible be specific @ -No Did you speak to anyone other than the patient for history (EMS, parent, family, police, friend...)? What history was obtained from this source @ -No Did you review nursing and triage notes (agree or disagree)? Why? @ -I reviewed and agree with nursing and triage notes Were old charts reviewed (outside hosp., previous admission, EMS record, old EKG, old radiological studies, urgent care reports/EKG's, long-term records)? Report findings @ -[facility] charts were reviewed Differential Diagnosis (chest pain, altered mental status, abdominal pain women, abdominal pain men, vaginal bleeding, weakness, fever, dyspnea, syncope, headache, dizziness, GI bleed, back pain, seizure, CVA, palpatations, mental health, musculoskeletal)? @ -Dyspnea, chest pain EKG interpreted by me (3pts min.). @ -As above CT interpreted by me sinus rhythm is 86 MO interval 139 QRS ration 134 QT/QTc 375/418 interventricular conduction delay LVH noted nonspecific anterior configuration this was compared with an EKG dated 02/23/2022 showing similar configuration. X-rays interpreted by me (1pt min.). @ -Chest x-ray interpreted by me COPD no acute process otherwise CT interpreted by me (1pt min.). @ -None done U/S interpreted by me (1pt. min.). @ -None done What testing was considered but not performed or refused? (CT, X-rays, U/S, labs)? Why? @ -None What meds were considered but not given or refused? Why? @ -None Did you discuss the management of the patient with other professionals (professionals i.e. DrTatyana, PA, LPN PER DIEM, lab, RT, psych nurse, director social welfare, front end developer, teacher, financial services officer, top case assembler)? Give summary @ -Dr. Sanders Was smoking cessation discussed for >3mins.? @ -No Was critical care preformed (if so, how long)? @ -31 minutes Were there social determinants of health that impacted care today? How? (Home lessness, low income, unemployed, alcoholism, drug addiction, transportation, low edu. Level, literacy, decrease access to med. care, detention, rehab)? @ -No Was there de-escalation of care discussed even if they declined (Discuss DNR or withdrawal of care, Hospice)? DNR status @ -No What co-morbidities impacted this encounter? (DM, HTN, Smoking, COPD, CAD, Cancer, CVA, ARF, Chemo, Hep., AIDS, mental health diagnosis, sleep apnea, morbid obesity)? @ -COPD/emphysema Was patient admitted / discharged? Hospital course, mention meds given and route, prescriptions, significant lab abnormalities, going to OR and other pertinent info. @ -Hospital course was admitted with cardiology consultation Undiagnosed new problem with uncertain prognosis? @ -No Drug Therapy requiring intensive monitoring for toxicity (Heparin, Nitro, Insulin, Cardizem)? @ -No Were any procedures done? @ -No Diagnosis/symptom? @ -Acute COPD exacerbation, CHF, elevated troponin, elevated BNP Acute, or Chronic, or Acute on Chronic? @ -Default Uncomplicated (without systemic symptoms) or Complicated (systemic symptoms)? @ -Complicated Side effects of treatment? @ -No Exacerbation, Progression, or Severe Exacerbation? @ -Exacerbation Poses a threat to life or bodily function? How? (Chest pain, [place], [place], pneumonia, PE, COPD, DKA, ARF, appy, cholecystitis, CVA, Diverticulitis, Homicidal, Suicidal, threat to staff... and all critical care pts) @ -Potential - Lab Data Result diagrams: 01/15/24 16:45 01/15/24 16:45 Lab Results 01/15/24 01/15/24 01/15/24 Range/Units 16:45 16:45 16:45 WBC 15.2 H (3.8-10.6) k/uL RBC 4.14 L (4.30-5.90) m/uL Hgb 12.9 L (13.0-17.5) gm/dL Hct 40.0 (39.0-53.0) % MCV 96.8 (80.0-100.0) fL MCH 31.2 (25.0-35.0) pg MCHC 32.2 (31.0-37.0) g/dL RDW 12.7 (11.5-15.5) % Plt Count 220 (150-450) k/uL MPV 8.8 Neutrophils % 75 % Lymphocytes % 11 % Monocytes % 12 % Eosinophils % 1 % Basophils % 0 % Neutrophils # 11.4 H (1.3-7.7) k/uL Lymphocytes # 1.7 (1.0-4.8) k/uL Monocytes # 1.8 H (0-1.0) k/uL Eosinophils # 0.2 (0-0.7) k/uL Basophils # 0.1 (0-0.2) k/uL PT 98.7 H (10.0-12.5) sec INR 9.9 H* (<1.2) APTT 55.5 H (22.0-30.0) sec Sodium 138 (137-145) mmol/L Potassium 4.2 (3.5-5.1) mmol/L Chloride 96 L (98-107) mmol/L Carbon Dioxide 38 H (22-30) mmol/L Anion Gap 4 mmol/L BUN 22 H (9-20) mg/dL Creatinine 0.67 (0.66-1.25) mg/dL Est GFR (CKD-EPI)AfAm >90 (>60 ml/min/1.73 sqM) Est GFR (CKD-EPI)NonAf >90 (>60 ml/min/1.73 sqM) Glucose 111 H (74-99) mg/dL Plasma Lactic Acid Dilan (0.7-2.0) mmol/L Calcium 8.7 (8.4-10.2) mg/dL Magnesium 2.1 (1.6-2.3) mg/dL Total Bilirubin 0.6 (0.2-1.3) mg/dL AST 53 (17-59) U/L ALT 40 (4-49) U/L Alkaline Phosphatase 90 (38-126) U/L Troponin I (0.000-0.034) ng/mL NT-Pro-B Natriuret Pep 5930 pg/mL Total Protein 6.4 (6.3-8.2) g/dL Albumin 3.5 (3.5-5.0) g/dL Influenza Type A (PCR) (Not Detectd) Influenza Type B (PCR) (Not Detectd) RSV (PCR) (Not Detectd) SARS-CoV-2 (PCR) (Not Detectd) 01/15/24 01/15/24 01/15/24 Range/Units 16:45 16:45 16:45 WBC (3.8-10.6) k/uL RBC (4.30-5.90) m/uL Hgb (13.0-17.5) gm/dL Hct (39.0-53.0) % MCV (80.0-100.0) fL MCH (25.0-35.0) pg MCHC (31.0-37.0) g/dL RDW (11.5-15.5) % Plt Count (150-450) k/uL MPV Neutrophils % % Lymphocytes % % Monocytes % % Eosinophils % % Basophils % % Neutrophils # (1.3-7.7) k/uL Lymphocytes # (1.0-4.8) k/uL Monocytes # (0-1.0) k/uL Eosinophils # (0-0.7) k/uL Basophils # (0-0.2) k/uL PT (10.0-12.5) sec INR (<1.2) APTT (22.0-30.0) sec Sodium (137-145) mmol/L Potassium (3.5-5.1) mmol/L Chloride (98-107) mmol/L Carbon Dioxide (22-30) mmol/L Anion Gap mmol/L BUN (9-20) mg/dL Creatinine (0.66-1.25) mg/dL Est GFR (CKD-EPI)AfAm (>60 ml/min/1.73 sqM) Est GFR (CKD-EPI)NonAf (>60 ml/min/1.73 sqM) Glucose (74-99) mg/dL Plasma Lactic Acid Dilan 0.8 (0.7-2.0) mmol/L Calcium (8.4-10.2) mg/dL Magnesium (1.6-2.3) mg/dL Total Bilirubin (0.2-1.3) mg/dL AST (17-59) U/L ALT (4-49) U/L Alkaline Phosphatase (38-126) U/L Troponin I 0.092 H* (0.000-0.034) ng/mL NT-Pro-B Natriuret Pep pg/mL Total Protein (6.3-8.2) g/dL Albumin (3.5-5.0) g/dL Influenza Type A (PCR) Not Detected (Not Detectd) Influenza Type B (PCR) Not Detected (Not Detectd) RSV (PCR) Not Detected (Not Detectd) SARS-CoV-2 (PCR) Not Detected (Not Detectd) Critical Care Time Critical Care Time: Yes Total Critical Care Time: 31 Disposition Clinical Impression: Congestive heart failure, Acute exacerbation of chronic obstructive pulmonary disease, Elevated troponin, Elevated brain natriuretic peptide (BNP) level Disposition: ADMITTED IP TO THIS [facility] Condition: Stable Referrals: Newton Phillips MD [Primary Care Provider] - 1-2 days Time of Disposition: 18:00 Decision Date: 01/15/24 Decision Time: 18:00
[2024-01-15 17:07] LABS: Basophils # (A) 0.1 k/uL (0-0.2); Basophils % (A) 0 %; Eosinophils # (A) 0.2 k/uL (0-0.7); Eosinophils % (A) 1 %; HGB 12.9 gm/dL (13.0-17.5); Lymphocytes # (A) 1.7 k/uL (1.0-4.8); Lymphocytes % (A) 11 %; MCH 31.2 pg (25.0-35.0); MCHC 32.2 g/dL (31.0-37.0); MCV 96.8 fL (80.0-100.0); Mean Platelet Volume 8.8; Monocytes # (A) 1.8 k/uL (0-1.0); Monocytes % (A) 12 %; Neutrophils # (A) 11.4 k/uL (1.3-7.7); Neutrophils % (A) 75 %; Platelet Count 220 k/uL (150-450); RBC 4.14 m/uL (4.30-5.90); RDW 12.7 % (11.5-15.5); WBC 15.2 k/uL (3.8-10.6)
[2024-01-15 17:18] LABS: ALT 40 U/L (4-49); AST 53 U/L (17-59); African American GFR (CKD) >90 (>60 ml/min/1.73 sqM); Albumin 3.5 g/dL (3.5-5.0); Alkaline Phosphatase 90 U/L (38-126); Anion Gap 4 mmol/L; Blood Urea Nitrogen 22 mg/dL (9-20); Calcium 8.7 mg/dL (8.4-10.2); Carbon Dioxide 38 mmol/L (22-30); Chloride 96 mmol/L (98-107); Glucose 111 mg/dL (74-99); Magnesium 2.1 mg/dL (1.6-2.3); Non-African American GFR(CKD) >90 (>60 ml/min/1.73 sqM); Potassium 4.2 mmol/L (3.5-5.1); Sodium 138 mmol/L (137-145); Total Bilirubin 0.6 mg/dL (0.2-1.3); Total Protein 6.4 g/dL (6.3-8.2)
[2024-01-15 17:20] LABS: Partial Thromboplastin Time 55.5 sec (22.0-30.0); Prothrombin Time 98.7 sec (10.0-12.5)
[2024-01-15 17:27] LABS: NT-Pro-B-Type Natriuretic Pept 5930 pg/mL
[2024-01-15 17:42] LABS: INR 9.9 (<1.2)
--- NOTE | 2024-01-15 18:10 | XR ---
EXAMINATION TYPE: XR chest 2V DATE OF EXAM: 01/15/2024 5:06 PM CLINICAL INDICATION:Male, 78 years old with history of difficulty breathing; [facility] COMPARISON: Chest radiographs from 09/29/2022 TECHNIQUE: XR chest 2V Frontal and lateral views of the chest. FINDINGS: Lungs/Pleura: The lungs are hyperexpanded. No evidence of pleural effusion or pneumothorax. Pleural-b ased scarring is suspected in the left lung base. Pulmonary vascularity: Unremarkable. Heart/mediastinum: Cardiomediastinal silhouette is unremarkable. Atherosclerotic calcifications are seen in the aorta. Musculoskeletal: No acute osseous pathology. Midline sternotomy wires are noted. IMPRESSION: 1. No acute cardiopulmonary disease/process. 2. Emphysematous changes of the lungs.
--- NOTE | 2024-01-15 19:21 | ED ---
Medical Decision Making - Lab Data Result diagrams: 01/15/24 16:45 01/15/24 16:45 Lab Results 01/15/24 01/15/24 01/15/24 Range/Units 16:45 16:45 16:45 WBC 15.2 H (3.8-10.6) k/uL RBC 4.14 L (4.30-5.90) m/uL Hgb 12.9 L (13.0-17.5) gm/dL Hct 40.0 (39.0-53.0) % MCV 96.8 (80.0-100.0) fL MCH 31.2 (25.0-35.0) pg MCHC 32.2 (31.0-37.0) g/dL RDW 12.7 (11.5-15.5) % Plt Count 220 (150-450) k/uL MPV 8.8 Neutrophils % 75 % Lymphocytes % 11 % Monocytes % 12 % Eosinophils % 1 % Basophils % 0 % Neutrophils # 11.4 H (1.3-7.7) k/uL Lymphocytes # 1.7 (1.0-4.8) k/uL Monocytes # 1.8 H (0-1.0) k/uL Eosinophils # 0.2 (0-0.7) k/uL Basophils # 0.1 (0-0.2) k/uL PT 98.7 H (10.0-12.5) sec INR 9.9 H* (<1.2) APTT 55.5 H (22.0-30.0) sec Sodium 138 (137-145) mmol/L Potassium 4.2 (3.5-5.1) mmol/L Chloride 96 L (98-107) mmol/L Carbon Dioxide 38 H (22-30) mmol/L Anion Gap 4 mmol/L BUN 22 H (9-20) mg/dL Creatinine 0.67 (0.66-1.25) mg/dL Est GFR (CKD-EPI)AfAm >90 (>60 ml/min/1.73 sqM) Est GFR (CKD-EPI)NonAf >90 (>60 ml/min/1.73 sqM) Glucose 111 H (74-99) mg/dL Plasma Lactic Acid Dilan (0.7-2.0) mmol/L Calcium 8.7 (8.4-10.2) mg/dL Magnesium 2.1 (1.6-2.3) mg/dL Total Bilirubin 0.6 (0.2-1.3) mg/dL AST 53 (17-59) U/L ALT 40 (4-49) U/L Alkaline Phosphatase 90 (38-126) U/L Troponin I (0.000-0.034) ng/mL NT-Pro-B Natriuret Pep 5930 pg/mL Total Protein 6.4 (6.3-8.2) g/dL Albumin 3.5 (3.5-5.0) g/dL Influenza Type A (PCR) (Not Detectd) Influenza Type B (PCR) (Not Detectd) RSV (PCR) (Not Detectd) SARS-CoV-2 (PCR) (Not Detectd) 01/15/24 01/15/24 01/15/24 Range/Units 16:45 16:45 16:45 WBC (3.8-10.6) k/uL RBC (4.30-5.90) m/uL Hgb (13.0-17.5) gm/dL Hct (39.0-53.0) % MCV (80.0-100.0) fL MCH (25.0-35.0) pg MCHC (31.0-37.0) g/dL RDW (11.5-15.5) % Plt Count (150-450) k/uL MPV Neutrophils % % Lymphocytes % % Monocytes % % Eosinophils % % Basophils % % Neutrophils # (1.3-7.7) k/uL Lymphocytes # (1.0-4.8) k/uL Monocytes # (0-1.0) k/uL Eosinophils # (0-0.7) k/uL Basophils # (0-0.2) k/uL PT (10.0-12.5) sec INR (<1.2) APTT (22.0-30.0) sec Sodium (137-145) mmol/L Potassium (3.5-5.1) mmol/L Chloride (98-107) mmol/L Carbon Dioxide (22-30) mmol/L Anion Gap mmol/L BUN (9-20) mg/dL Creatinine (0.66-1.25) mg/dL Est GFR (CKD-EPI)AfAm (>60 ml/min/1.73 sqM) Est GFR (CKD-EPI)NonAf (>60 ml/min/1.73 sqM) Glucose (74-99) mg/dL Plasma Lactic Acid Dilan 0.8 (0.7-2.0) mmol/L Calcium (8.4-10.2) mg/dL Magnesium (1.6-2.3) mg/dL Total Bilirubin (0.2-1.3) mg/dL AST (17-59) U/L ALT (4-49) U/L Alkaline Phosphatase (38-126) U/L Troponin I 0.092 H* (0.000-0.034) ng/mL NT-Pro-B Natriuret Pep pg/mL Total Protein (6.3-8.2) g/dL Albumin (3.5-5.0) g/dL Influenza Type A (PCR) Not Detected (Not Detectd) Influenza Type B (PCR) Not Detected (Not Detectd) RSV (PCR) Not Detected (Not Detectd) SARS-CoV-2 (PCR) Not Detected (Not Detectd) Disposition Clinical Impression: Congestive heart failure, Acute exacerbation of chronic obstructive pulmonary disease, Elevated troponin, Elevated brain natriuretic peptide (BNP) level, Hypoxemia Disposition: ADMITTED IP TO THIS HOSP Condition: Stable Referrals: Newton Phillips MD [Primary Care Provider] - 1-2 days
[2024-01-15] MEDS: IPRATROPIUM-ALBUTEROL 3 ML NEB INHALATION STA (19:28)
[2024-01-15] MEDS: FUROSEMIDE 10 MG/ML 4 ML VIAL IV STA (20:21)
[2024-01-15] MEDS: ursodioL 300 MG CAP PO SCH (20:26)
[2024-01-15] MEDS: methylPREDNISolone SOD SUCCI 125 MG/2 ML VIAL IV SCH (23:36)
[2024-01-15] MEDS: carvediloL 12.5 MG TAB PO SCH (23:36)
[2024-01-16] MEDS: IPRATROPIUM-ALBUTEROL 3 ML NEB INHALATION SCH (01:16)
[2024-01-16] MEDS: SYMBICORT 80-4.5 MCG INHALER INHALATION SCH (08:11)
[2024-01-16 08:32] LABS: Prothrombin Time 113.1 sec (10.0-12.5)
[2024-01-16] MEDS: ATORVASTATIN 80 MG TAB PO SCH (08:47)
[2024-01-16] MEDS: MULTIVITAMINS, THERA 1 EACH TAB PO SCH (08:47)
[2024-01-16] MEDS: FUROSEMIDE 10 MG/ML 4 ML VIAL IV SCH (08:50)
[2024-01-16 08:58] LABS: INR >10.0 (<1.2)
[2024-01-16] MEDS ORDERED: WARFARIN 5 MG TAB PO SCH (09:00)
[2024-01-16] MEDS: PHYTONADIONE 10 MG in SODIUM CHLORIDE 0.9% 50 ML IVPB STA (11:34)
--- NOTE | 2024-01-16 12:53 | P.CRDCN ---
History of Present Illness Consult date: 01/16/24 Consult reason: congestive heart failure History of present illness: History of present illness: This is a 78-year-old male patient of Dr. Armstrong with past medical history of carotid atherosclerosis and prior stenting of the left internal carotid artery and carotid endarterectomy of the right internal carotid artery as well as valvular heart disease status post aortic valve replacement using a mechanical valve, nonischemic cardiomyopathy, tobacco use and dependence. We have been asked to evaluate the patient for CHF. Patient's initial pulse ox was 80% on room air. He has been placed on 4 L nasal cannula with pulse ox 93% now. Patient gives history that he stopped smoking cold turkey and he saw his pulmonary doctor on was sent to [facility] and was admitted. He states he left there yesterday and since his breathing has been getting worse. He complains of dyspnea on exertion and sometimes with sitting he has shortness of breath. He denies having any chest pain or pressure. Patient is status post 1 dose of IV Lasix 40 mg followed by 40 mg every 12 hours also started on IV Solu-Medrol, Symbicort and DuoNeb. EKG sinus rhythm with left ventricular hypertrophy Chest x-ray: No acute cardiopulmonary process. Emphysematous changes of the lungs. WBC 15.2, hemoglobin 12.9. INR 9.9. Sodium 138, potassium 4.2, BUN 22 creatinine 0.67. Glucose 111. Troponin 0.092, 0.098, 0.115. proBNP 5930. Influenza A, influenza B, RSV, COVID-19 not detected. Home cardiac medications: Carvedilol 12.5 mg twice daily, lisinopril 2.5 mg daily, Crestor 40 mg daily, Coumadin 5 mg daily. Review Of Systems: At the time of my exam: CONSTITUTIONAL: Denies fever or chills. HEENT: Denies blurred vision, vision changes, or eye pain. Denies hemoptysis CARDIOVASCULAR: Denies chest pain. Denies orthopnea. Denies PND. Denies palpitations RESPIRATORY: Reports dyspnea on exertion and shortness of breath. GASTROINTESTINAL: Denies abdominal pain. Denies nausea or vomiting. HEMATOLOGIC: Denies bleeding disorders. GENITOURINARY: Denies any blood in urine. SKIN: Denies pruitis. Denies rash. Physical examination: Gen: This is a 78-year-old male in no acute distress. VS: reviewed. Blood pressure 117/62, heart rate 92, pulse ox 93% on 4 L nasal cannula. HEENT: Head is atraumatic, normocephalic. Pupils equal, round. Sclerae is anicteric. NECK: Supple. No JVD. LUNGS: Decreased breath sounds bilaterally. No intercostal retractions. HEART: Regular rate and rhythm. Mechanical S2, systolic murmur. ABDOMEN: Soft No tenderness. EXTREMITIES: No pedal edema. No calf tenderness. NEUROLOGICAL: Patient is awake, alert and oriented x3. Assessment: Acute hypoxic respiratory failure secondary COPD exacerbation and minimal component of acute systolic heart failure Coagulopathy secondary to Coumadin use Leukocytosis Elevated troponins Carotid atherosclerosis with prior stenting of the left internal carotid and endarterectomy of the right internal carotid Valvular heart disease status post aortic valve replacement with mechanical valve Nonischemic cardiomyopathy Tobacco use and dependence Plan: Resume patient's home cardiac medications Okay to continue IV Lasix Monitor ROWDY, daily weights electrolytes and renal function Patient is status post vitamin K 10 mg IV piggyback Schedule patient for Lexiscan stress test for tomorrow Obtain 2-D echocardiogram and Doppler study to assess cardiac structure and function Further recommendations to follow based upon clinical course Thank you kindly for this consultation. Nurse practitioner note has been reviewed, I agree with documented findings and plan of care. Patient was seen and examined. Past Medical History Past Medical History: Coronary Artery Disease (CAD), COPD, Hyperlipidemia, Hypertension Additional Past Medical History / Comment(s): Exposure to agent orange. Carotid stenosis. 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 Cataract surgery. Hydrocele surgery,arch study,left carotid stent. azra carotidendartectomy Past Anesthesia/Blood Transfusion Reactions: No Reported Reaction Additional Past Anesthesia/Blood Transfusion Reaction / Comment(s): no reaction to possible blood transfusion 1990s for heart surgery Past Psychological History: No Psychological Hx Reported Smoking Status: Former smoker - Past Family History Mother Family Medical History: Cancer Father Family Medical History: Coronary Artery Disease (CAD) Medications and Allergies Home Medications Medication Instructions Recorded Confirmed Type Multivitamins, Thera [Multivitamin 1 tab PO DAILY 10/12/21 01/15/24 History (formulary)] Warfarin [Coumadin] 5 mg PO DAILY 10/12/21 01/15/24 History carvediloL 12.5 mg PO BID 05/13/22 01/15/24 History Fluticasone/Umeclidin/Vilanter 1 puff INHALATION RT-DAILY 01/15/24 01/15/24 History [Trelegy Ellipta 100-62.5-25] Rosuvastatin Calcium [Crestor] 40 mg PO DAILY 01/15/24 01/15/24 History lisinopriL [Zestril] 2.5 mg PO DAILY 01/15/24 01/15/24 History ursodioL [Ursodiol] 300 mg PO BID 01/15/24 01/15/24 History Allergies Allergy/AdvReac Type Severity Reaction Status Date / Time No Known Allergies Allergy Verified 01/15/24 17:28 Physical Exam Vitals: Vital Signs Temp Pulse Resp BP Pulse Ox 01/16/24 08:23 90 01/16/24 08:14 90 01/16/24 07:45 98.4 F 92 18 117/62 93 L 01/16/24 06:15 90 17 110/54 93 L 01/16/24 05:12 82 22 105/47 93 L 01/16/24 00:51 78 16 115/52 933 H 01/16/24 00:43 96 22 102/39 96 01/15/24 23:37 96 26 H 97 01/15/24 23:08 83 18 92/46 93 L 01/15/24 21:40 87 32 H 119/58 97 01/15/24 21:00 96 37 H 73 L 01/15/24 20:12 97.6 F 96 36 H 149/62 94 L 01/15/24 19:37 89 01/15/24 19:28 87 25 H 01/15/24 18:06 91 20 120/73 3 L 01/15/24 16:02 97.7 F 95 26 H 179/81 80 L Intake and Output 01/15/24 01/16/24 01/16/24 22:59 06:59 14:59 Output Total 575 Balance -575 Output: Urine 575 Other: # Voids 2 Weight 72.121 kg Results 01/15/24 16:45 01/15/24 16:45 Cardiac Enzymes 01/15/24 01/15/24 01/15/24 Range/Units 16:45 16:45 19:45 AST 53 (17-59) U/L Troponin I 0.092 H* 0.098 H* (0.000-0.034) ng/mL 01/15/24 Range/Units 23:21 AST (17-59) U/L Troponin I 0.115 H* (0.000-0.034) ng/mL Coagulation 01/15/24 Range/Units 16:45 PT 98.7 H (10.0-12.5) sec APTT 55.5 H (22.0-30.0) sec CBC 01/15/24 Range/Units 16:45 WBC 15.2 H (3.8-10.6) k/uL RBC 4.14 L (4.30-5.90) m/uL Hgb 12.9 L (13.0-17.5) gm/dL Hct 40.0 (39.0-53.0) % Plt Count 220 (150-450) k/uL Comprehensive Metabolic Panel 01/15/24 Range/Units 16:45 Sodium 138 (137-145) mmol/L Potassium 4.2 (3.5-5.1) mmol/L Chloride 96 L (98-107) mmol/L Carbon Dioxide 38 H (22-30) mmol/L BUN 22 H (9-20) mg/dL Creatinine 0.67 (0.66-1.25) mg/dL Glucose 111 H (74-99) mg/dL Calcium 8.7 (8.4-10.2) mg/dL AST 53 (17-59) U/L ALT 40 (4-49) U/L Alkaline Phosphatase 90 (38-126) U/L Total Protein 6.4 (6.3-8.2) g/dL Albumin 3.5 (3.5-5.0) g/dL Current Medications Generic Name Dose Route Start Last Admin Trade Name Freq PRN Reason Stop Dose Admin Albuterol/Ipratropium 3 ml 01/16/24 02:00 01/16/24 08:11 Ipratropium-Albuterol 3 Ml Neb INHALATION 3 ml RT-Q6H WARNER Administration Atorvastatin Calcium 80 mg 01/16/24 09:00 Atorvastatin 80 Mg Tab PO DAILY [facility] Budesonide/Formoterol Fumarate 2 puff 01/16/24 08:00 01/16/24 08:11 Symbicort 80-4.5 Mcg Inhaler INHALATION 2 puff RT-BID WARNER Administration Carvedilol 12.5 mg 01/15/24 21:00 01/15/24 23:36 Carvedilol 12.5 Mg Tab PO 12.5 mg AC-BID WARNER Administration Furosemide 40 mg 01/16/24 08:00 Furosemide 10 Mg/Ml 4 Ml Vial IV Q12H WARNER Lisinopril 2.5 mg 01/16/24 09:00 Lisinopril 2.5 Mg Tab PO DAILY [facility] Methylprednisolone Sodium Succinate 60 mg 01/16/24 00:00 01/16/24 06:11 Methylprednisolone Sod Succi 125 Mg/2 Ml Vial IV 60 mg Q6HR WARNER Administration Multivitamins 1 each 01/16/24 09:00 Multivitamins, Thera 1 Each Tab PO DAILY [facility] Nitroglycerin 0.5 inch 01/16/24 22:00 Nitroglycerin Oint 1 Inch/Gm Packet TOPICAL QID [facility] Ursodiol 300 mg 01/15/24 21:00 01/15/24 20:26 Ursodiol 300 Mg Cap PO 300 mg BID WARNER Administration Intake and Output 01/15/24 01/16/24 01/16/24 22:59 06:59 14:59 Output Total 575 Balance -575 Output: Urine 575 Other: # Voids 2 Weight 72.121 kg 01/15/24 16:45 01/15/24 16:45
[2024-01-16 18:50] LABS: INR 2.2 (<1.2); Prothrombin Time 22.4 sec (10.0-12.5)
[2024-01-16] MEDS: AZITHROMYCIN 500 MG in SODIUM CHLORIDE 0.9% 250 ML IVPB SCH (20:38)
[2024-01-16] MEDS: PANTOPRAZOLE 40 MG TABLET PO SCH (21:05)
[2024-01-16] MEDS: NITROGLYCERIN OINT 1 INCH/GM PACKET TOPICAL SCH (21:05)
--- NOTE | 2024-01-16 22:16 | HP ---
HISTORY AND PHYSICAL HISTORY OF PRESENT ILLNESS: This is a 78-year-old white male who is in the hospital with shortness of breath. He was transferred from [facility] with COPD exacerbation, pneumonia with severe hypoxemia. He came in with a white count 15.2, 12.9, shortness of breath, started on steroids updrafts, nebulizer treatments. He feels better today. Cardiology seen him. He has been coughing up green-yellow phlegm. I started him on azithromycin, Rocephin. Mildly intermittent chest pain, shortness of breath. He had bad COPD, hypoxemia, in a triage. HOME MEDICINES: 1. Multivitamins. 2. Coumadin. 3. Carvedilol. 4. Trelegy. 5. Crestor. 6. . ALLERGIES: Negative. REVIEW OF SYSTEMS: A 14-point review of systems otherwise negative. PAST MEDICAL HISTORY: Coronary artery disease, COPD, dyslipidemia, hypertension, and carotid stenosis. PAST SURGICAL HISTORY: Adenoidectomy, coronary bypass, tonsillectomy, cataract surgery, hydrocele repair, and aortic valve replacement. FAMILY HISTORY: Mother with cancer. Father with coronary artery disease. PHYSICAL EXAMINATION: VITAL SIGNS: Temp 97.7, pulse 91 to 95, respiratory rate 20 to 26, blood pressure 120 to 179 over 73 to 84, and O2 on 3 L is below 90s. LUNGS: Decreased breath sounds x4. Scattered rhonchi. He is barrel chested. CARDIOVASCULAR: S1, S2. GI: Soft. EXTREMITIES: No edema. BACK: Normal on inspection. NEUROLOGIC: Cranial nerves intact. PSYCH: Fair mood and affect. SKIN: Warm, dry, intact. LABORATORY DATA: White count is 15.2, hemoglobin is 12.9, platelets 220. BUN is 22, creatinine 0.67, neutrophils 11.4. INR 9.9. BNP is 5930. ASSESSMENT: Congestive heart failure, acute on chronic, COPD, probable tracheobronchitis versus pneumonia. Acute on chronic CHF. Ordered echo. Elevated troponin, Cardiology evaluating him. Continue with broad-spectrum antibiotics, updrafts, prednisone. Cardiology consult. MMODL / IJN: [id number] /
[2024-01-16] MEDS: ACETAMINOPHEN TAB 500 MG TAB PO PRN (23:01)
[2024-01-17] MEDS ORDERED: CAFFEINE CITRATE 60 MG/3 ML VIAL IV PRN (06:00)
[2024-01-17] MEDS ORDERED: AMINOPHYLLINE 500 MG/20 ML VIAL IV PRN (06:00)
[2024-01-17] MEDS ORDERED: REGADENOSON 0.4 MG/5 ML SYRINGE IV PRN (07:00)
[2024-01-17 07:27] LABS: INR 1.3 (<1.2); Prothrombin Time 13.6 sec (10.0-12.5)
[2024-01-17] MEDS ORDERED: REGADENOSON 0.4 MG/5 ML SYRINGE IV ONE (08:00)
--- NOTE | 2024-01-17 12:47 | NM ---
EXAMINATION TYPE: NM stress lexiscan cardiolite DATE OF EXAM: 01/17/2024 COMPARISON: NONE CLINICAL INDICATION: Male, 78 years old with history of chest pain; TECHNIQUE: After the intravenous administration of 10.5 mCi Tc 99m Sestamibi - Cardiolite resting SP ECT images acquired 45 minutes post injection. The patient received 0.4mg Lexiscan, 25.9 mCi Tc 99m Sestamibi - Stress images obtained [address] injection FINDINGS: Review of stress and rest SPECT images demonstrates a fixed defect along the apical to mid anterior w all which accentuates on stress. Gated analysis shows limited augmentation of this portion of the wal l. Estimated left ventricular ejection fraction of 59 %. TID is calculated at 0.92, within normal li mits. 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
--- NOTE | 2024-01-17 12:56 | CA ---
Lexiscan Nuclear Stress Test Report Name: Kane Biswas Exam Date: 01/17/2024 09:19 Exam Location: [place] Stress Ht (in): 69 Wt (lb): 132 BSA: 1.73 Ordering Phys: Bing Orosco Referring Phys: MILVIA, Technologist: Aman Florez Age: 78 Gender: M : 1945 Procedure CPT: Indications: Reflex order-Stress test ICD-10 Codes: Patient History: Medications: SEE CHART Meds past 24 hrs: Pretest Chest Pain: STRESS TEST Lexiscan Protocol Exercise Duration (min:sec): 02:[address] Depressions (mm): Angina Score: Dickinson Score: Resting HR (bpm): 73 Peak HR (bpm): 98 Resting BP (mmHg): 130 / 54 Peak BP (mmHg): 116 / 50 MPHR: 144 Target HR: 122 % MPHR: 68 METS: 1.0 Total Dose: Peak Dose: Atropine: Double Product: 05658 BP Response: Stress Termination: PROTOCOL COMPLETE Stress Symptoms: NO SYMPTOMS Stress Summary: ECG ANALYSIS Resting ECG: Stress ECG: CONCLUSIONS Nondiagnostic stress testing Dr. Cas Armsrtong MD (Electronically Signed) Final Date: 17 Jan 2024 12:56
--- NOTE | 2024-01-17 13:10 | CA ---
Transthoracic Echo Report Name: Kane Biswas Age: 78 Gender: M : 1945 Exam Date: 01/16/2024 15:37 Exam Location: [place] Echo Ht (in): 69 Wt (lb): 159 Ordering Physician: Bing Orosco Attending/Referring Phys: [id number], Ana Luisa Principal Embedded Software Engineer Vita Samuel RDCS Procedure CPT: Indications: LVF Cardiac Hx: Technical Quality: Poor Contrast 1: Total Dose (mL): Contrast 2: Total Dose (mL): MEASUREMENTS (Male / Female) Normal Values 2D ECHO LV Diastolic Diameter PLAX 4.7 cm 4.2 - 5.9 / 3.9 - 5.3 cm LV Systolic Diameter PLAX 3.7 cm IVS Diastolic Thickness 1.0 cm 0.6 - 1.0 / 0.6 - 0.9 cm LVPW Diastolic Thickness 1.1 cm 0.6 - 1.0 / 0.6 - 0.9 cm LV Relative Wall Thickness 0.5 RV Internal Dim ED PLAX 2.2 cm LA Systolic Diameter LX 4.0 cm 3.0 - 4.0 / 2.7 - 3.8 cm LV Diastolic Volume MOD 4C 82.6 cm??? LV Systolic Volume MOD 4C 35.4 cm??? LV Ejection Fraction MOD 4C 57.1 % LV Cardiac Index MOD 4C 2009.9 cm???/min???m??? LV Diastolic Length 4C 8.6 cm LV Systolic Length 4C 7.4 cm LV Diastolic Volume MOD 2C 109.9 cm??? LV Systolic Volume MOD 2C 53.7 cm??? LV Ejection Fraction MOD 2C 51.2 % LV Cardiac Index MOD 2C 2395.1 cm???/min???m??? LV Diastolic Length 2C 7.7 cm LV Systolic Length 2C 7.2 cm LA Volume 40.1 cm??? 18 - 58 / 22 - 52 cm??? LA Volume Index 21.3 cm???/m??? 16 - 28 cm???/m??? DOPPLER AV Peak Velocity 283.9 cm/s AV Peak Gradient 32.2 mmHg AV Mean Velocity 196.6 cm/s AV Mean Gradient 17.3 mmHg AV Velocity Time Integral 61.7 cm AI Peak Velocity 423.7 cm/s AI Peak Gradient 71.8 mmHg AI Pressure Half Time 583.4 ms LVOT Peak Velocity 78.1 cm/s LVOT Peak Gradient 2.4 mmHg MV Area PHT 3.2 cm??? Mitral E Point Velocity 81.0 cm/s Mitral A Point Velocity 79.9 cm/s Mitral E to A Ratio 1.0 MV Deceleration Time 235.6 ms MV E' Velocity 5.9 cm/s Mitral E to MV E' Ratio 13.7 FINDINGS Left Ventricle Left ventricular ejection fraction is estimated at 50-55 %. Left ventricular cavity size normal. Left ventricular wall thickness normal. Normal left ventricular wall motion. Right Ventricle Normal right ventricular size. Unable to estimate the right ventricular systolic pressure. Right Atrium Normal right atrial size. Left Atrium Normal left atrial size. Mitral Valve Mitral valve thickened. Mild mitral annular calcification. No mitral stenosis, regurgitation or prolapse. Aortic Valve Mechanical AOV with peak gradient of 32 mmHg and mean gradient of 17 mmHg. Tricuspid Valve Tricuspid valve not well visualized. No tricuspid regurgitation. Pulmonic Valve Structurally normal pulmonic valve. No pulmonic regurgitation. Pericardium No pericardial effusion. Aorta Aortic root and proximal ascending aorta not well visualized. CONCLUSIONS Normal LV systolic function Mechanical valve in aortic position with a mean gradient of 17 mmHg. The aortic valve was poorly visualized Previewed by: Dr. Cas Armstrong MD (Electronically Signed) Final Date: 17 Jan 2024 13:08
[2024-01-17 14:29] VITALS: BMI 19.4
--- NOTE | 2024-01-17 14:53 | P.PN ---
Subjective Progress Note Date: 01/17/24 Consult reason: congestive heart failure History of present illness: History of present illness: This is a 78-year-old male patient of Dr. Armstrong with past medical history of carotid atherosclerosis and prior stenting of the left internal carotid artery and carotid endarterectomy of the right internal carotid artery as well as valvular heart disease status post aortic valve replacement using a mechanical valve, nonischemic cardiomyopathy, tobacco use and dependence. We have been asked to evaluate the patient for CHF. Patient's initial pulse ox was 80% on room air. He has been placed on 4 L nasal cannula with pulse ox 93% now. Patient gives history that he stopped smoking cold turkey and he saw his pulmonary doctor on was sent to [facility] and was admitted. He states he left there yesterday and since his breathing has been getting worse. He complains of dyspnea on exertion and sometimes with sitting he has shortness of breath. He denies having any chest pain or pressure. Patient is status post 1 dose of IV Lasix 40 mg followed by 40 mg every 12 hours also started on IV Solu-Medrol, Symbicort and DuoNeb. EKG sinus rhythm with left ventricular hypertrophy Chest x-ray: No acute cardiopulmonary process. Emphysematous changes of the lungs. WBC 15.2, hemoglobin 12.9. INR 9.9. Sodium 138, potassium 4.2, BUN 22 creatinine 0.67. Glucose 111. Troponin 0.092, 0.098, 0.115. proBNP 5930. Influenza A, influenza B, RSV, COVID-19 not detected. Home cardiac medications: Carvedilol 12.5 mg twice daily, lisinopril 2.5 mg daily, Crestor 40 mg daily, Coumadin 5 mg daily. 01/16 Patient complains of scratchy throat. He denies any chest pain. He states he is eating and feeling well. Patient underwent Lexiscan stress test this morning which revealed a fixed defect along the apical to mid anterior wall which ac centuates on stress. Gated and analysis shows limited augmentation of this portion of the wall estimated LV EF 59%. 3 times daily is calculated at 0.92 with an normal limits. Findings suggestive of area of poor infarct along the mid to apical anterior wall with inducible serg-infarct ischemia. E chocardiogram reveals EF of 50 to 55%. Mechanical valve in aortic position with mean gradient of 17 mmHg. Aortic valve is poorly visualized. Blood pressure 127/88, heart rate 60, pulse ox 94% on 2 L. INR 1.3. He has been on IV Lasix 40 mg every 12 hours which we will transition to oral. Physical examination: Gen: This is a 78-year-old male in no acute distress. VS: reviewed. Blood pressure 117/62, heart rate 92, pulse ox 93% on 4 L nasal cannula. HEENT: Head is atraumatic, normocephalic. Pupils equal, round. Sclerae is anicteric. NECK: Supple. No JVD. LUNGS: Decreased breath sounds bilaterally. No intercostal retractions. HEART: Regular rate and rhythm. Mechanical S2, systolic murmur. ABDOMEN: Soft No tenderness. EXTREMITIES: No pedal edema. No calf tenderness. NEUROLOGICAL: Patient is awake, alert and oriented x3. Assessment: Acute hypoxic respiratory failure secondary COPD exacerbation and minimal component of acute systolic heart failure Coagulopathy secondary to Coumadin use Leukocytosis Elevated troponins Carotid atherosclerosis with prior stenting of the left internal carotid and endarterectomy of the right internal carotid Valvular heart disease status post aortic valve replacement with mechanical valve Nonischemic cardiomyopathy Tobacco use and dependence Plan: Continue patient's home cardiac medications Transition IV Lasix to oral 40 mg daily Results of Lexiscan stress test will be reviewed with cable engineer and further recommendations to be determined. Nurse practitioner note has been reviewed, I agree with documented findings and plan of care. Patient was seen and examined. Objective - Vital Signs Vital signs: Vital Signs Temp 98.1 F 01/17/24 11:43 Pulse 60 01/17/24 12:03 Resp 20 01/17/24 11:43 BP 127/68 01/17/24 11:43 Pulse Ox 94 L 01/17/24 11:43 FiO2 Intake & Output 01/16/24 01/17/24 01/17/24 18:59 06:59 18:59 Output Total 475 125 Balance -475 -125 Weight 59.8 kg Output: Urine 475 125 Other: # Voids 0 1 - Labs CBC & Chem 7: 01/15/24 16:45 01/15/24 16:45 Labs: Abnormal Lab Results - Last 24 Hours (Table) 01/16/24 01/17/24 Range/Units 17:30 06:22 PT 22.4 H 13.6 H (10.0-12.5) sec INR 2.2 H 1.3 H (<1.2) Microbiology - Last 24 Hours (Table) 01/15/24 16:30 Blood Culture - Preliminary Blood 01/15/24 16:45 Blood Culture - Preliminary Blood
[2024-01-17] MEDS ORDERED: NITROGLYCERIN SL TABS 0.4 MG TAB SUBLINGUAL PRN (15:05)
[2024-01-17] MEDS ORDERED: ALPRAZolam 0.5 MG TAB PO PRN (15:05)
[2024-01-17] MEDS ORDERED: ALPRAZolam 0.25 MG TAB PO PRN (15:05)
--- NOTE | 2024-01-17 15:43 | P.CNPUL ---
History of Present Illness Consult date: 01/17/24 Reason for consult: dyspnea, cough, COPD, hypoxemia Chief complaint: increasing shortness of breath History of present illness: 78-year-old male with extensive history of COPD along with peripheral vascular disease and cardiovascular disease with history of bilateral carotid endarterectomy, aortic valve replacement, open heart surgery. extensive history of smoking since he was 15 years old 1-2 packs per daypatient stopped smoking in December, has been short of breath constantly, was admitted at [facility] subsequently signed out AMA went home and felt that he is doing better but however due to relapse of poor respiratory status decided to come into busy department for further evaluation, patient does not use oxygen and CPAP machine, patient has a trilogy inhaler once a day and as needed better to a witnessed. He denies any hemoptysis, howeversputum has been take tenacious. on 4 L oxygen sats were 93%, chest x-ray no active pulmonary process seen x-ray of emphysema, labs significant for leukocytosis of the busy on 15 his the viral panel has been negative, patient has been on Coumadin for mechanical aortic valve Review of Systems All systems: negative Past Medical History Past Medical History: Coronary Artery Disease (CAD), COPD, Hyperlipidemia, Hypertension Additional Past Medical History / Comment(s): Exposure to agent orange. Carotid stenosis. 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 Cataract surgery. Hydrocele surgery,arch study,left carotid stent. azra carotidendartectomy Past Anesthesia/Blood Transfusion Reactions: No Reported Reaction Additional Past Anesthesia/Blood Transfusion Reaction / Comment(s): no reaction to possible blood transfusion 1990s for heart surgery Past Psychological History: No Psychological Hx Reported Smoking Status: Former smoker Past Alcohol Use History: None Reported Additional Past Alcohol Use History / Comment(s): . Past Drug Use History: None Reported - Past Family History Mother Family Medical History: Cancer Father Family Medical History: Coronary Artery Disease (CAD) Medications and Allergies Home Medications Medication Instructions Recorded Confirmed Type Multivitamins, Thera [Multivitamin 1 tab PO DAILY 10/12/21 01/15/24 History (formulary)] Warfarin [Coumadin] 5 mg PO DAILY 10/12/21 01/15/24 History carvediloL 12.5 mg PO BID 05/13/22 01/15/24 History Fluticasone/Umeclidin/Vilanter 1 puff INHALATION RT-DAILY 01/15/24 01/15/24 History [Latoya Pitts 100-62.5-25] Rosuvastatin Calcium [Crestor] 40 mg PO DAILY 01/15/24 01/15/24 History lisinopriL [Zestril] 2.5 mg PO DAILY 01/15/24 01/15/24 History ursodioL [Ursodiol] 300 mg PO BID 01/15/24 01/15/24 History Allergies Allergy/AdvReac Type Severity Reaction Status Date / Time No Known Allergies Allergy Verified 01/15/24 17:28 Physical Exam Vitals: Vital Signs Temp Pulse Pulse Resp BP BP Pulse Ox 01/17/24 12:03 60 01/17/24 11:52 60 01/17/24 11:43 98.1 F 61 20 127/68 94 L 01/17/24 08:00 97.5 F L 62 20 102/69 96 01/17/24 07:57 64 01/17/24 07:46 60 01/17/24 03:42 97.9 F 82 20 117/68 93 L 01/16/24 23:09 98.0 F 75 18 96/52 94 L 01/16/24 21:38 76 01/16/24 21:24 73 01/16/24 19:58 97.5 F L 80 22 100/43 95 01/16/24 18:56 87 20 110/79 97 01/16/24 18:18 98.2 F 89 22 114/76 97 01/16/24 16:10 92 20 108/59 96 01/16/24 15:57 89 20 114/58 96 Intake and Output 01/17/24 01/17/24 01/17/24 06:59 14:59 22:59 Intake Total 118 Output Total 475 475 Balance -475 -357 Intake: Oral 118 Output: Urine 475 475 Other: # Voids 1 Weight 59.8 kg 59.8 kg - Constitutional General appearance: average body habitus, cooperative, disheveled, mild distress - EENT Eyes: EOMI, PERRLA ENT: normal oropharynx Ears: bilateral: normal - Neck Neck: normal ROM Carotids: bilateral: upstroke normal Thyroid: negative: normal size - Respiratory Respiratory: bilateral: diminished, prolonged expiration - Cardiovascular Rhythm: regular Heart sounds: normal: S1, S2 - Gastrointestinal General gastrointestinal: normal bowel sounds, soft - Integumentary Integumentary: normal turgor - Neurologic Neurologic: CNII-XII intact - Musculoskeletal Musculoskeletal: gait normal, generalized weakness, strength equal bilaterally - Psychiatric Psychiatric: A&O x's 3, appropriate affect, intact judgment & insight Results - Laboratory Findings CBC and BMP: 01/15/24 16:45 01/15/24 16:45 PT/INR, D-dimer PT 13.6 sec (10.0-12.5) H 01/17/24 06:22 INR 1.3 (<1.2) H 01/17/24 06:22 D-Dimer 0.27 mg/L FEU (<0.60) 01/16/24 17:30 Abnormal lab findings: Abnormal Labs 01/15/24 01/15/24 01/15/24 16:45 16:45 16:45 WBC 15.2 H RBC 4.14 L Hgb 12.9 L Neutrophils # 11.4 H Monocytes # 1.8 H PT 98.7 H INR 9.9 H* APTT 55.5 H Chloride 96 L Carbon Dioxide 38 H BUN 22 H Glucose 111 H Troponin I 01/15/24 01/15/24 01/15/24 16:45 19:45 23:21 WBC RBC Hgb Neutrophils # Monocytes # PT INR APTT Chloride Carbon Dioxide BUN Glucose Troponin I 0.092 H* 0.098 H* 0.115 H* 01/16/24 01/16/24 01/17/24 07:38 17:30 06:22 WBC RBC Hgb Neutrophils # Monocytes # PT 113.1 H 22.4 H 13.6 H INR >10.0 H* 2.2 H 1.3 H APTT Chloride Carbon Dioxide BUN Glucose Troponin I - Diagnostic Findings Chest x-ray: report reviewed, image reviewed Assessment and Plan Assessment: acute COPD exacerbation, patient on bronchodilators and IV steroidsand broad-spectrum antibiotic Acute purulent tracheobronchitis, continue broad-spectrum antibiotics with Rocephin and Zithromax obtain sputum for Gram stain and culture if possible Acute on chronic hypoxic respiratory failure requiring 4 L nasal cannula now to keep saturation in low to mid 90s Status post aortic valve replacement with mechanical aortic valve on Coumadin for higher INR between 2.5/3.5 Severe degree of peripheral vascular disease, continue high-intensity statins dual antiplatelet agent smoking cessation Plan: as above Time with Patient: Greater than 30
[2024-01-17] MEDS: HEPARIN SODIUM 1,000 UN/ML (10ML VL) IV ONE (16:30)
[2024-01-17] MEDS: HEPARIN SOD,PORK IN 0.45% NACL 25,000 UNIT in 0.45% NACL 1 250ML.BAG IV SCH (16:31)
[2024-01-17 17:29] LABS: Basophils % (A) 0 %; Eosinophils % (A) 0 %; HCT 40.6 % (39.0-53.0); HGB 12.9 gm/dL (13.0-17.5); Lymphocytes # (A) 1.1 k/uL (1.0-4.8); Lymphocytes % (A) 6 %; MCH 30.6 pg (25.0-35.0); MCHC 31.9 g/dL (31.0-37.0); MCV 96.2 fL (80.0-100.0); Mean Platelet Volume 9.2; Monocytes # (A) 1.2 k/uL (0-1.0); Monocytes % (A) 6 %; Neutrophils # (A) 16.9 k/uL (1.3-7.7); Neutrophils % (A) 87 %; Platelet Count 254 k/uL (150-450); RBC 4.23 m/uL (4.30-5.90); RDW 12.7 % (11.5-15.5); WBC 19.5 k/uL (3.8-10.6)
[2024-01-17 17:35] LABS: African American GFR (CKD) 62 (>60 ml/min/1.73 sqM); Anion Gap 6 mmol/L; Blood Urea Nitrogen 54 mg/dL (9-20); Calcium 8.7 mg/dL (8.4-10.2); Chloride 93 mmol/L (98-107); Glucose 104 mg/dL (74-99); Non-African American GFR(CKD) 54 (>60 ml/min/1.73 sqM); Potassium 4.1 mmol/L (3.5-5.1); Sodium 139 mmol/L (137-145)
[2024-01-17 17:55] LABS: INR 1.4 (<1.2); Partial Thromboplastin Time 96.4 sec (22.0-30.0); Prothrombin Time 14.1 sec (10.0-12.5)
[2024-01-17 17:56] LABS: Carbon Dioxide 45 mmol/L (22-30)
[2024-01-17] MEDS: acetaZOLAMIDE 250 MG TAB PO SCH (19:44)
[2024-01-17] MEDS ORDERED: IPRATROPIUM-ALBUTEROL 3 ML NEB INHALATION PRN (21:08)
[2024-01-17] MEDS: SODIUM CHLORIDE 0.9% 1,000 ML IV SCH (23:42)
[2024-01-18] MEDS: ASPIRIN 325 MG TAB PO ONE (04:43)
[2024-01-18] MEDS: ATORVASTATIN 80 MG TAB PO ONE (04:43)
[2024-01-18] MEDS ORDERED: HEPARIN SODIUM,PORCINE (1 ML) 2,500 UNIT in SODIUM CHLORIDE 0.9% 250 ML IRRIGATION PRN (07:00)
[2024-01-18] MEDS ORDERED: HEPARIN SODIUM,PORCINE 10,000 UNIT in SODIUM CHLORIDE 0.9% 1,000 ML IRRIGATION PRN (07:00)
[2024-01-18] MEDS: IPRATROPIUM-ALBUTEROL 3 ML NEB INHALATION SCH (07:32)
[2024-01-18] MEDS: FUROSEMIDE 40 MG TAB PO SCH (08:26)
[2024-01-18] MEDS ORDERED: LIDOCAINE 1% INJ 10MG/ML (20 ML MDV) ONE (12:53)
[2024-01-18] MEDS ORDERED: VERAPAMIL 2.5 MG/ML 2 ML AMP ONE (12:53)
[2024-01-18] MEDS: SODIUM CHLORIDE 0.9% 1,000 ML IV ONE (13:01)
[2024-01-18] MEDS ORDERED: HEPARIN SODIUM 1,000 UN/ML (10ML VL) ONE ×2 (13:03→14:27)
[2024-01-18] MEDS: MIDAZOLAM 2 MG/2 ML VIAL IVP ONE (13:20)
[2024-01-18] MEDS: VERAPAMIL SYRINGE (5 MG/10 ML) INTRAARTER ONE (13:20)
[2024-01-18] MEDS: LIDOCAINE 1% INJ 10MG/ML (20 ML MDV) SQ ONE (13:20)
[2024-01-18] MEDS: HEPARIN SODIUM 1,000 UN/ML (10ML VL) IVP ONE ×2 (13:24→14:29)
[2024-01-18] MEDS: HEPARIN SODIUM 1,000 UN/ML (10ML VL) IV PRN (13:42)
[2024-01-18] MEDS ORDERED: CLOPIDOGREL 75 MG TAB ONE (13:42)
[2024-01-18] MEDS: CLOPIDOGREL 75 MG TAB PO ONE (13:44)
[2024-01-18] MEDS: IOPAMIDOL-370 100ML BTL INJ ONE ×2 (13:44→14:24)
[2024-01-18] MEDS: NITROGLYCERIN 1000MCG/10ML SYRINGE INTRACORON ONE (14:05)
[2024-01-18] MEDS ORDERED: ATROPINE SULFATE 0.1 MG/ML 10ML SYRINGE IV PRN (14:37)
[2024-01-18] MEDS ORDERED: RX INFO: IV CONTRAST WAS GIVEN 1 EACH MISC MISCELLANE PRN (14:37)
[2024-01-18] MEDS ORDERED: MAG HYDROX/AL HYDROX/SIMETH 30 ML CUP PO PRN (14:37)
[2024-01-18] MEDS ORDERED: ZOLPIDEM 5 MG TAB PO PRN (14:37)
[2024-01-18 15:21] LABS: Basophils % (A) 0 %; Eosinophils % (A) 0 %; HCT 39.3 % (39.0-53.0); HGB 12.6 gm/dL (13.0-17.5); Lymphocytes % (A) 6 %; MCH 30.8 pg (25.0-35.0); MCV 96.3 fL (80.0-100.0); Monocytes # (A) 1.1 k/uL (0-1.0); Monocytes % (A) 7 %; Neutrophils # (A) 13.6 k/uL (1.3-7.7); Neutrophils % (A) 85 %; Platelet Count 217 k/uL (150-450); RBC 4.07 m/uL (4.30-5.90); RDW 12.8 % (11.5-15.5)
[2024-01-18 15:37] LABS: INR 1.4 (<1.2); Prothrombin Time 14.4 sec (10.0-12.5)
[2024-01-18 15:45] LABS: Partial Thromboplastin Time >200.0 sec (22.0-30.0)
[2024-01-18 16:43] LABS: African American GFR (CKD) >90 (>60 ml/min/1.73 sqM); Anion Gap 1 mmol/L; Blood Urea Nitrogen 43 mg/dL (9-20); Calcium 8.6 mg/dL (8.4-10.2); Carbon Dioxide 38 mmol/L (22-30); Chloride 99 mmol/L (98-107); Glucose 105 mg/dL (74-99); Non-African American GFR(CKD) 84 (>60 ml/min/1.73 sqM); Sodium 138 mmol/L (137-145)
--- NOTE | 2024-01-18 18:35 | P.PCN ---
Date of Procedure: 01/18/24 Operative Findings: CARDIAC CATHETERIZATION AND PERCUTANEOUS CORONARY INTERVENTION PERFORMING PHYSICIAN: Cas Armstrong MD, [facility] PROCEDURE PERFORMED: 1. Selective right and left coronary angiogram 2. Successful stenting of mid LAD using 3.5 x 15 mm Xience ANGIE with an excellent angiographic results 3. Adjunctive use of Dobler wire and intravascular imaging 4. Ultrasound-guided access of the right radial artery INDICATION: Chest discomfort and abnormal myocardial perfusion imaging stress test with evidence of apical ischemia COMPLICATION: None APPROACH: Right radial artery LEVEL OF SEDATION: Moderate with the sedation time off 46 minutes PROCEDURE DESCRIPTION: After obtaining informed consent the patient was brought to the cardiac Valet Manager. The right radial artery was cannulated using micropuncture technique under ultrasound guidance the micropuncture wire passed easily then I placed a 6 [place] 11 cm sheath at the right radial artery. Subsequently anticoagulation was initiated using heparin with continuous ACT monitoring. After that I did selective right and left coronary angiogram using JR4 and JL 3.5 catheters. Subsequently I decided to pursue with FFR of both the LAD. At that point after zeroing the Doppler wire and equalizing between the Doppler wire and guiding catheter which was JL 3.5 guiding catheter I did engage the left main and subsequently the LAD was wired. The IFR came in to be ischemic at 0.73. At that point I decided to proceed with an intervention. I did wired the diagonal branch of the LAD using a run-through wire. Intravascular ultrasound was performed and showed a diameter around 3.5 mm. Predilatation was performed using 3 mm noncompliant balloon and subsequently 3.5 mm score flex balloon before I deployed 3.5 x 15 mm stent where the stent was positioned under fluoroscopy guidance and deployed under fluoroscopy guidance. Postdilatation was performed using 4 mm noncompliant balloon proximally and 3.5 mm noncompliant balloon in the mid portion. There was pinch on the diagonal branch. I did rewire the diagonal again and they pulled the jailed wire out. Attempting advancing 2.5 mm noncompliant balloon to the LAD and diagonal was unsuccessful because the 6 [place] guide was so tight. But the final angiogram showed good angiographic results with GENEVIEVE-3 flow in both the LAD and diagonal and for that reason I decided to stop. The patient tolerated the procedure very well SELECTIVE CORONARY ANGIOGRAM: The right coronary artery: Large-caliber vessel nondominant vessel with mild disease only. Left main: Has mild disease on The left circumflex: Large-caliber vessel and appears to be angiographically The left anterior descending artery: The LAD in the midportion has a tubular lesion appears to be in the range of 60% documented to be flow-limiting by Doppler wire CONCLUSION: Intermediate lesion involving the mid LAD documented to be flow-limiting by Doppler wire. I did perform successful PCI as described above POSTPROCEDURE MANAGEMENT: 1. Dual antiplatelet therapy using aspirin and Plavix for 6 month 2. Aggressive cholesterol control 3. Follow-up with the patient
[2024-01-18] MEDS: HEPARIN SOD,PORK IN 0.45% NACL 25,000 UNIT in 0.45% NACL 1 250ML.BAG IV SCH (23:35)
--- NOTE | 2024-01-19 01:58 | PN ---
PROGRESS NOTE SUBJECTIVE: Admitted to hospital with CHF, chest pain, COPD, possible pneumonia. White count 16, hemoglobin is 12.6. He had a heart catheterization today, his GFR is over 90 now, his carbon dioxide went from 45 to 38. He is on oxygen at this time. Dr. Armstrong took him to the cardiac factory laborer today, he had mid LAD stents for LAD obstruction. Do antiplatelet medications, aspirin and Plavix for 6 months. For cholesterol control follow up with the patient. The left main wire came in and he had a stent placement, successful PCI. Prognosis guarded. Continue current treatment for his breathing. He has tendency mid LAD. Prognosis guarded. Follow up in the next 24 to 48 hours for possible discharge. Once his breathing improves, we will wean him off oxygen. Currently, he is still on oxygen and his breathing is slowly improving. MMODL / IJN: [id number] /
[2024-01-19] MEDS: CLOPIDOGREL 75 MG TAB PO SCH (09:34)
[2024-01-19 10:42] LABS: INR 1.3 (<1.2); Partial Thromboplastin Time 63.3 sec (22.0-30.0)
[2024-01-19 11:08] LABS: Basophils % (A) 0 %; Eosinophils % (A) 0 %; HCT 36.5 % (39.0-53.0); HGB 11.6 gm/dL (13.0-17.5); Hypochromasia Moderate; Lymphocytes # (A) 0.6 k/uL (1.0-4.8); Lymphocytes % (A) 5 %; MCH 31.7 pg (25.0-35.0); MCHC 31.7 g/dL (31.0-37.0); Mean Platelet Volume 10.8; Monocytes # (A) 0.4 k/uL (0-1.0); Monocytes % (A) 3 %; Neutrophils # (A) 10.7 k/uL (1.3-7.7); Neutrophils % (A) 91 %; Platelet Count 207 k/uL (150-450); RBC 3.65 m/uL (4.30-5.90); RDW 12.7 % (11.5-15.5); WBC 11.7 k/uL (3.8-10.6)
[2024-01-19 11:54] LABS: African American GFR (CKD) 74 (>60 ml/min/1.73 sqM); Anion Gap 3 mmol/L; Blood Urea Nitrogen 35 mg/dL (9-20); Calcium 8.3 mg/dL (8.4-10.2); Carbon Dioxide 37 mmol/L (22-30); Chloride 101 mmol/L (98-107); Glucose 155 mg/dL (74-99); Non-African American GFR(CKD) 64 (>60 ml/min/1.73 sqM); Potassium 3.4 mmol/L (3.5-5.1); Sodium 141 mmol/L (137-145)
--- NOTE | 2024-01-19 13:23 | P.PN ---
Subjective Progress Note Date: 01/19/24 Consult reason: congestive heart failure History of present illness: History of present illness: This is a 78-year-old male patient of Dr. Armstrong with past medical history of carotid atherosclerosis and prior stenting of the left internal carotid artery and carotid endarterectomy of the right internal carotid artery as well as valvular heart disease status post aortic valve replacement using a mechanical valve, nonischemic cardiomyopathy, tobacco use and dependence. We have been asked to evaluate the patient for CHF. Patient's initial pulse ox was 80% on room air. He has been placed on 4 L nasal cannula with pulse ox 93% now. Patient gives history that he stopped smoking cold turkey and he saw his pulmonary doctor on was sent to [facility] and was admitted. He states he left there yesterday and since his breathing has been getting worse. He complains of dyspnea on exertion and sometimes with sitting he has shortness of breath. He denies having any chest pain or pressure. Patient is status post 1 dose of IV Lasix 40 mg followed by 40 mg every 12 hours also started on IV Solu-Medrol, Symbicort and DuoNeb. EKG sinus rhythm with left ventricular hypertrophy Chest x-ray: No acute cardiopulmonary process. Emphysematous changes of the lungs. WBC 15.2, hemoglobin 12.9. INR 9.9. Sodium 138, potassium 4.2, BUN 22 creatinine 0.67. Glucose 111. Troponin 0.092, 0.098, 0.115. proBNP 5930. Influenza A, influenza B, RSV, COVID-19 not detected. Home cardiac medications: Carvedilol 12.5 mg twice daily, lisinopril 2.5 mg daily, Crestor 40 mg daily, Coumadin 5 mg daily. 01/16 Patient complains of scratchy throat. He denies any chest pain. He states he is eating and feeling well. Patient underwent Lexiscan stress test this morning which revealed a fixed defect along the apical to mid anterior wall which ac centuates on stress. Gated and analysis shows limited augmentation of this portion of the wall estimated LV EF 59%. 3 times daily is calculated at 0.92 with an normal limits. Findings suggestive of area of poor infarct along the mid to apical anterior wall with inducible serg-infarct ischemia. E chocardiogram reveals EF of 50 to 55%. Mechanical valve in aortic position with mean gradient of 17 mmHg. Aortic valve is poorly visualized. Blood pressure 127/88, heart rate 60, pulse ox 94% on 2 L. INR 1.3. He has been on IV Lasix 40 mg every 12 hours which we will transition to oral. 01/18 Due to abnormal Lexiscan stress test, patient was scheduled for cardiac catheterization with Dr. Armstrong which revealed intermediate lesion involving the mid LAD and successful stenting of the mid LAD. Blood pressure 108/63, heart rate 67, pulse ox 96% on 2 L nasal cannula. Repeat INR 1.3. Patient has had some superficial bleeding from the right radial site. No hematoma. Patient denies having any chest pain no fatigue, no lightheadedness or dizziness.. Physical examination: Gen: This is a 78-year-old male in no acute distress. VS: reviewed. Blood pressure 117/62, heart rate 92, pulse ox 93% on 4 L nasal cannula. HEENT: Head is atraumatic, normocephalic. Pupils equal, round. Sclerae is a nicteric. NECK: Supple. No JVD. LUNGS: Decreased breath sounds bilaterally. No intercostal retractions. HEART: Regular rate and rhythm. Mechanical S2, systolic murmur. ABDOMEN: Soft No tenderness. EXTREMITIES: No pedal edema. No calf tenderness. NEUROLOGICAL: Patient is awake, alert and oriented x3. Assessment: Acute hypoxic respiratory failure secondary COPD exacerbation and minimal comp onent of acute systolic heart failure Coagulopathy secondary to Coumadin use Leukocytosis Elevated troponins Carotid atherosclerosis with prior stenting of the left internal carotid and endarterectomy of the right internal carotid Valvular heart disease status post aortic valve replacement with mechanical valve Nonischemic cardiomyopathy Tobacco use and dependence Plan: Continue patient's current cardiac medications, new medications have been sent to his pharmacy Patient will require bridging with Lovenox prior to discharge Patient may follow-up in the Coumadin clinic on Tuesday for INR Patient is cleared for discharge from cardiology and may follow-up with Dr. Armstrong in 1 week. Smoking cessation counseling, referral to [place] quit line Nurse practitioner note has been reviewed, I agree with documented findings and plan of care. Patient was seen and examined. Objective - Vital Signs Vital signs: Vital Signs Temp 98.0 F 01/19/24 03:40 Pulse 72 01/19/24 09:52 Resp 16 01/19/24 03:40 BP 108/63 01/19/24 03:40 Pulse Ox 88 L 01/19/24 09:33 FiO2 Intake & Output 01/18/24 01/19/24 01/19/24 18:59 06:59 18:59 Intake Total 368 0 180 Output Total 1925 600 400 Balance -1557 -600 -220 Intake: IV 250 Oral 118 0 180 Output: Urine 1925 600 400 Other: Voiding Method Toilet Toilet Urinal Urinal # Bowel Movements 0 - Labs CBC & Chem 7: 01/19/24 07:43 01/19/24 07:43 Labs: Abnormal Lab Results - Last 24 Hours (Table) 01/18/24 01/18/24 01/18/24 Range/Units 14:40 14:47 14:49 WBC 16.0 H (3.8-10.6) k/uL RBC 4.07 L (4.30-5.90) m/uL Hgb 12.6 L (13.0-17.5) gm/dL Neutrophils # 13.6 H (1.3-7.7) k/uL Monocytes # 1.1 H (0-1.0) k/uL PT 14.4 H (10.0-12.5) sec INR 1.4 H (<1.2) APTT >200.0 H* (22.0-30.0) sec Carbon Dioxide 38 H (22-30) mmol/L BUN 43 H (9-20) mg/dL Glucose 105 H (74-99) mg/dL 01/18/24 01/19/24 Range/Units 19:21 07:43 WBC (3.8-10.6) k/uL RBC (4.30-5.90) m/uL Hgb (13.0-17.5) gm/dL Neutrophils # (1.3-7.7) k/uL Monocytes # (0-1.0) k/uL PT 14.0 H (10.0-12.5) sec INR 1.3 H (<1.2) APTT 49.4 H 63.3 H (22.0-30.0) sec Carbon Dioxide (22-30) mmol/L BUN (9-20) mg/dL Glucose (74-99) mg/dL Microbiology - Last 24 Hours (Table) 01/15/24 16:30 Blood Culture - Preliminary Blood 01/15/24 16:45 Blood Culture - Preliminary Blood
--- NOTE | 2024-01-19 13:36 | CDI ---
Documentation Clarification Form Date: 01/19/2024 From: Genesis Burgos Phone: [phone] Admit Date: 01/15/2024 07:21:00 PM Patient Name: Kane Biswas Visit Number: [id number] Discharge Date: ATTENTION: The Clinical Documentation Specialists (CDI) and [facility] Coding Staff appreciate your assistance in clarifying documentation. Please respond to the clarification below the line at the bottom and electronically sign. The CDI & [facility] Coding staff will review the response and follow-up if needed. Please note: Queries are made part of the Legal Health Record. If you have any questions, please contact the author of this message via ITS. OSVALDO Burkett: Your patient has troponin level(s) of: 0.092, 0.098 and 0.115 on 01/14. Please clarify if there is an additional diagnosis and/or clinical significance related to this value. Patient history/risk factors: COPD/emphysema, CAD, and aortic valve replacement, HTN who presents with SOB and mild intermittent chest discomfort found to have acute COPD exacerbation and acute systolic heart failure Clinical indicators: 01/14 Triage VS: 179/81, 97.7, 95, 26, 80% room air 01/15 Cardiology consult, Assessment: "Elevated troponins" 01/14 EKG: Sinus rhythm, intraventricular conduction delay, left ventricular hypertrophy and ST-T changes, possible anterior myocardial infarction of indeterminate age 5/6 ECHO, EF 50-55% 01/16 Stress test, Conclusions: "Non-diagnostic stress testing" 01/16 Lexiscan Cardiolyte stress test, Impression: Findings suggest an area of prior infarct along the mid to apical interior wall with inducible serg-infarct ischemia." 01/17 Cardiac catheterization and percutaneous coronary intervention- Successful stenting of mid LAD with ANGIE Treatment: Consult Cardiology, Stress test, Cardiac catheterization Is there an additional diagnosis and/or clinical significance related to the above lab result/information: [ ] NSTEMI type 1 [ ] STEMI type 1 [ ] Type 2 [place] due to (specify cause ____) [ ] Non-ischemic with acute myocardial injury [ ] No additional diagnosis/Not clinically significant [ ] Other, please specify [ ] Unable to determine Reference: [employer] Fourth Biddle Definition of Myocardial Infraction Elevated Cardiac Troponin >99th percentile with Troponin rise and/or fall With Acute ischemia o Acute Myocardial Infarction ? Atherosclerosis thrombosis Type I W[place] ? Oxygen supply and demand imbalance Type II [place] (Please indicate etiology) Without acute ischemia o Acute Myocardial Injury MTDD
[2024-01-19 16:22] LABS: Basophils % (A) 0 %; Eosinophils % (A) 0 %; HCT 40.2 % (39.0-53.0); HGB 12.3 gm/dL (13.0-17.5); Hypochromasia Moderate; Lymphocytes % (A) 5 %; MCH 30.6 pg (25.0-35.0); MCHC 30.7 g/dL (31.0-37.0); MCV 99.7 fL (80.0-100.0); Mean Platelet Volume 10.1; Monocytes % (A) 6 %; Neutrophils # (A) 15.8 k/uL (1.3-7.7); Neutrophils % (A) 88 %; Platelet Count 263 k/uL (150-450); RBC 4.03 m/uL (4.30-5.90); RDW 12.8 % (11.5-15.5); WBC 17.9 k/uL (3.8-10.6)
[2024-01-19 16:39] LABS: African American GFR (CKD) 62 (>60 ml/min/1.73 sqM); Non-African American GFR(CKD) 54 (>60 ml/min/1.73 sqM)
[2024-01-19] MEDS: WARFARIN 5 MG TAB PO ONE (16:51)
[2024-01-20 09:58] LABS: INR 2.1 (<1.2); Prothrombin Time 20.6 sec (10.0-12.5)
--- NOTE | 2024-01-20 12:42 | P.PN ---
Subjective Progress Note Date: 01/20/24 Consult reason: congestive heart failure History of present illness: History of present illness: This is a 78-year-old male patient of Dr. Armstrong with past medical history of carotid atherosclerosis and prior stenting of the left internal carotid artery and carotid endarterectomy of the right internal carotid artery as well as valvular heart disease status post aortic valve replacement using a mechanical valve, nonischemic cardiomyopathy, tobacco use and dependence. We have been asked to evaluate the patient for CHF. Patient's initial pulse ox was 80% on room air. He has been placed on 4 L nasal cannula with pulse ox 93% now. Patient gives history that he stopped smoking cold turkey and he saw his pulmonary doctor on was sent to [facility] and was admitted. He states he left there yesterday and since his breathing has been getting worse. He complains of dyspnea on exertion and sometimes with sitting he has shortness of breath. He denies having any chest pain or pressure. Patient is status post 1 dose of IV Lasix 40 mg followed by 40 mg every 12 hours also started on IV Solu-Medrol, Symbicort and DuoNeb. EKG sinus rhythm with left ventricular hypertrophy Chest x-ray: No acute cardiopulmonary process. Emphysematous changes of the lungs. WBC 15.2, hemoglobin 12.9. INR 9.9. Sodium 138, potassium 4.2, BUN 22 creatinine 0.67. Glucose 111. Troponin 0.092, 0.098, 0.115. proBNP 5930. Influenza A, influenza B, RSV, COVID-19 not detected. Home cardiac medications: Carvedilol 12.5 mg twice daily, lisinopril 2.5 mg daily, Crestor 40 mg daily, Coumadin 5 mg daily. 01/16 Patient complains of scratchy throat. He denies any chest pain. He states he is eating and feeling well. Patient underwent Lexiscan stress test this morning which revealed a fixed defect along the apical to mid anterior wall which ac centuates on stress. Gated and analysis shows limited augmentation of this portion of the wall estimated LV EF 59%. 3 times daily is calculated at 0.92 with an normal limits. Findings suggestive of area of poor infarct along the mid to apical anterior wall with inducible serg-infarct ischemia. E chocardiogram reveals EF of 50 to 55%. Mechanical valve in aortic position with mean gradient of 17 mmHg. Aortic valve is poorly visualized. Blood pressure 127/88, heart rate 60, pulse ox 94% on 2 L. INR 1.3. He has been on IV Lasix 40 mg every 12 hours which we will transition to oral. 01/18 Due to abnormal Lexiscan stress test, patient was scheduled for cardiac catheterization with Dr. Armstrong which revealed intermediate lesion involving the mid LAD and successful stenting of the mid LAD. Blood pressure 108/63, heart rate 67, pulse ox 96% on 2 L nasal cannula. Repeat INR 1.3. Patient has had some superficial bleeding from the right radial site. No hematoma. Patient denies having any chest pain no fatigue, no lightheadedness or dizziness.. 01/19 Patient was prepared for discharge home yesterday but he had significant bleeding to the right wrist area. Dr. Hutchinson a dressing with new TR and dressing. Patient denies having any chest pain. He has been on a heparin drip which will be discontinued. INR this morning 2.1. Patient will not require bridging at the time of discharge. Blood pressure 126/60, heart rate 71, pulse ox 97% on 2 L nasal cannula. Physical examination: Gen: This is a 78-year-old male in no acute distress. VS: reviewed. HEENT: Head is atraumatic, normocephalic. Pupils equal, round. Sclerae is anicteric. LUNGS: Decreased breath sounds bilaterally. No intercostal retractions. HEART: Regular rate and rhythm. Mechanical S2, systolic murmur. EXTREMITIES: No pedal edema. No calf tenderness. Significant ecchymosis to the right forearm with bleeding at the site of the puncture wound. NEUROLOGICAL: Patient is awake, alert and oriented x3. Assessment: Acute hypoxic respiratory failure secondary COPD exacerbation and minimal component of acute systolic heart failure Coagulopathy secondary to Coumadin use Leukocytosis Non-ST elevated myocardial infarction Carotid atherosclerosis with prior stenting of the left internal carotid and endarterectomy of the right internal carotid Valvular heart disease status post aortic valve replacement with mechanical valve Nonischemic cardiomyopathy Tobacco use and dependence Plan: Continue patient's current cardiac medications, new medications have been sent to his pharmacy Patient may follow-up in the Coumadin clinic on Tuesday for INR If right wrist bleeding is controlled, patient is cleared for discharge from cardiology and may follow-up with Dr. Armstrong in 1 week. Smoking cessation counseling, referral to [place] quit line Nurse practitioner note has been reviewed, I agree with documented findings and plan of care. Patient was seen and examined. Objective - Vital Signs Vital signs: Vital Signs Temp 97.9 F 01/19/24 20:00 Pulse 71 01/20/24 09:51 Resp 16 01/20/24 04:00 BP 117/65 01/20/24 04:00 Pulse Ox 97 01/20/24 09:31 FiO2 Intake & Output 01/19/24 01/20/24 01/20/24 18:59 06:59 18:59 Intake Total 404.057 780 200 Output Total 650 750 200 Balance -245.943 30 0 Weight 59.7 kg Intake: Intake, IV Titration 124.057 Amount Heparin Sod,Pork in 0.45% 124.057 NaCl 25,000 unit In 0.45 % NaCl 1 250ml.bag @ 12 UNITS/KG/HR 7.164 mls/hr IV .Q24H [facility] Rx#: [id number] Oral 280 780 200 Output: Urine 650 750 200 Other: Voiding Method Toilet Toilet Urinal Urinal # Bowel Movements 0 - Labs CBC & Chem 7: 01/19/24 14:50 01/19/24 14:50 Labs: Abnormal Lab Results - Last 24 Hours (Table) 01/19/24 01/19/24 01/19/24 Range/Units 07:43 14:50 14:50 WBC 17.9 H (3.8-10.6) k/uL RBC 4.03 L (4.30-5.90) m/uL Hgb 12.3 L (13.0-17.5) gm/dL MCHC 30.7 L (31.0-37.0) g/dL Neutrophils # 15.8 H (1.3-7.7) k/uL PT (10.0-12.5) sec INR (<1.2) Potassium 3.4 L (3.5-5.1) mmol/L Carbon Dioxide 37 H (22-30) mmol/L BUN 35 H (9-20) mg/dL Creatinine 1.29 H (0.66-1.25) mg/dL Glucose 155 H (74-99) mg/dL Calcium 8.3 L (8.4-10.2) mg/dL 01/20/24 Range/Units 08:57 WBC (3.8-10.6) k/uL RBC (4.30-5.90) m/uL Hgb (13.0-17.5) gm/dL MCHC (31.0-37.0) g/dL Neutrophils # (1.3-7.7) k/uL PT 20.6 H (10.0-12.5) sec INR 2.1 H (<1.2) Potassium (3.5-5.1) mmol/L Carbon Dioxide (22-30) mmol/L BUN (9-20) mg/dL Creatinine (0.66-1.25) mg/dL Glucose (74-99) mg/dL Calcium (8.4-10.2) mg/dL
--- NOTE | 2024-01-20 13:20 | CDI ---
Documentation Clarification Form Date: 01/20/2024 From: Genesis Burgos Phone: [phone] Admit Date: 01/15/2024 07:21:00 PM Patient Name: Kane Biswas Visit Number: [id number] Discharge Date: ATTENTION: The Clinical Documentation Specialists (CDI) and [facility] Coding Staff appreciate your assistance in clarifying documentation. Please respond to the clarification below the line at the bottom and electronically sign. The CDI & [facility] Coding staff will review the response and follow-up if needed. Please note: Queries are made part of the Legal Health Record. If you have any questions, please contact the author of this message via ITS. ALEA BurkettC: There is documentation of bleeding at the right wrist in the Cardiology progress note 01/19. Based on this information and the findings below, is there an additional diagnosis that is clinically appropriate for this patient? History/Risk Factors: COPD/emphysema, CAD, and aortic valve replacement, HTN who presents with SOB and mild intermittent chest discomfort found to have acute COPD exacerbation and acute systolic heart failure, NSTEMI Clinical Indicators: 01/15 Cardiology consult, Assessment: "Coagulopathy secondary to Coumadin use." Plan: "Patient is status post vitamin K 10mg IV piggyback" 01/17 Cardiac catheterization and percutaneous coronary intervention- Successful stenting of mid LAD with ANGIE 01/19 Cardiology PN:"01/19 Patient was prepared for discharge home yesterday, but he had significant bleeding to the right wrist area.........a dressing with new TR and dressing. He has been on a heparin drip which will be discontinued." 01/16-01/19 PT: 14.1, 14.4, 14.0, 20.6 INR: 1.4, 1.4, 1.3, 2.1 01/16-01/18 APTT: 96.4, 54.9, >200.0, 49.4, 63.3 Treatment: New TR and dressing Heparin 3,588 units IV once 01/16 Heparin titrated drip 01/16-01/17 Warfarin 5mg oral once 01/18 Plavix 600mg oral once 01/17 then 75mg oral daily start 01/18 Is there an additional diagnosis that is clinically appropriate for this patient? [ X ] Hemorrhage due to circulating heparin and warfarin [ ] Other, please specify [ ] Unable to determine MTDD
--- NOTE | 2024-01-20 14:53 | P.PN ---
Subjective Progress Note Date: 01/19/24 Principal diagnosis: unstable angina with significant stenosis in LAD status post stent placement acute COPD exacerbation, patient on bronchodilators and IV steroidsand broad-spectrum antibiotic Acute purulent tracheobronchitis, continue broad-spectrum antibiotics with Rocephin and Zithromax obtain sputum for Gram stain and culture if possible Acute on chronic hypoxic respiratory failure requiring 4 L nasal cannula now to keep saturation in low to mid 90s Status post aortic valve replacement with mechanical aortic valve on Coumadin for higher INR between 2.5/3.5 Severe degree of peripheral vascular disease, continue high-intensity statins dual antiplatelet agent smoking cessation 01/19/2024, patient seen eval examined during rounds labs reviewed medications reviewed care plan discussed,respiratory status is marginal but stable, on supplemental oxygen hemodynamic status stable, leg computed tomography scan stress test available finding consistent with mid to apical inferior wall with inducible serg-infarct ischemia cardiac cath planned for January 17 underwent stent placement to LAD with ANGIE approach right wrist, complaining of superficial bleeding on right radial side, cardiovascular services following 78-year-old male with extensive history of COPD along with peripheral vascular disease and cardiovascular disease with history of bilateral carotid endartere ctomy, aortic valve replacement, open heart surgery. extensive history of smoking since he was 15 years old 1-2 packs per daypatient stopped smoking in December, has been short of breath constantly, was admitted at [facility] subsequently signed out AMA went home and felt that he is doing better but however due to relapse of poor respiratory status decided to come into busy department for further evaluation, patient does not use oxygen and CPAP machine, patient has a trilogy inhaler once a day and as needed better to a witnessed. He denies any hemoptysis, howeversputum has been take tenacious. on 4 L oxygen sats were 93%, chest x-ray no active pulmonary process seen x-ray of emphysema, labs significant for leukocytosis of the busy on his the viral panel has been negative, patient has been on Coumadin for mechanical aortic valve Objective - Vital Signs Vital signs: Vital Signs Temp 98.0 F 01/19/24 03:40 Pulse 72 01/19/24 09:52 Resp 16 01/19/24 03:40 BP 108/63 01/19/24 03:40 Pulse Ox 88 L 01/19/24 09:33 FiO2 Intake & Output 01/18/24 01/19/24 01/19/24 18:59 06:59 18:59 Intake Total 368 0 180 Output Total 5 600 400 Balance -3827 -600 -220 Intake: IV 250 Oral 118 0 180 Output: Urine 1924 600 400 Other: Voiding Method Toilet Toilet Urinal Urinal # Bowel Movements 0 - Exam - Constitutional General appearance: average body habitus, cooperative, disheveled, mild distress - EENT Eyes: EOMI, PERRLA ENT: normal oropharynx Ears: bilateral: normal - Neck Neck: normal ROM Carotids: bilateral: upstroke normal Thyroid: negative: normal size - Respiratory Respiratory: bilateral: diminished, prolonged expiration - Cardiovascular Rhythm: regular Heart sounds: normal: S1, S2 - Gastrointestinal General gastrointestinal: normal bowel sounds, soft - Integumentary Integumentary: normal turgor - Neurologic Neurologic: CNII-XII intact - Musculoskeletal Musculoskeletal: gait normal, generalized weakness, strength equal bilaterally - Psychiatric Psychiatric: A&O x's 3, appropriate affect, intact judgment & insight - Labs CBC & Chem 7: 01/19/24 14:50 01/19/24 14:50 Labs: Abnormal Lab Results - Last 24 Hours (Table) 01/18/24 01/18/24 01/18/24 Range/Units 14:40 14:47 14:49 WBC 16.0 H (3.8-10.6) k/uL RBC 4.07 L (4.30-5.90) m/uL Hgb 12.6 L (13.0-17.5) gm/dL Hct (39.0-53.0) % Neutrophils # 13.6 H (1.3-7.7) k/uL Lymphocytes # (1.0-4.8) k/uL Monocytes # 1.1 H (0-1.0) k/uL PT 14.4 H (10.0-12.5) sec INR 1.4 H (<1.2) APTT >200.0 H* (22.0-30.0) sec Potassium (3.5-5.1) mmol/L Carbon Dioxide 38 H (22-30) mmol/L BUN 43 H (9-20) mg/dL Glucose 105 H (74-99) mg/dL Calcium (8.4-10.2) mg/dL 01/18/24 01/19/24 01/19/24 Range/Units 19:21 07:43 07:43 WBC 11.7 H (3.8-10.6) k/uL RBC 3.65 L (4.30-5.90) m/uL Hgb 11.6 L (13.0-17.5) gm/dL Hct 36.5 L (39.0-53.0) % Neutrophils # 10.7 H (1.3-7.7) k/uL Lymphocytes # 0.6 L (1.0-4.8) k/uL Monocytes # (0-1.0) k/uL PT (10.0-12.5) sec INR (<1.2) APTT 49.4 H (22.0-30.0) sec Potassium 3.4 L (3.5-5.1) mmol/L Carbon Dioxide 37 H (22-30) mmol/L BUN 35 H (9-20) mg/dL Glucose 155 H (74-99) mg/dL Calcium 8.3 L (8.4-10.2) mg/dL 01/19/24 Range/Units 07:43 WBC (3.8-10.6) k/uL RBC (4.30-5.90) m/uL Hgb (13.0-17.5) gm/dL Hct (39.0-53.0) % Neutrophils # (1.3-7.7) k/uL Lymphocytes # (1.0-4.8) k/uL Monocytes # (0-1.0) k/uL PT 14.0 H (10.0-12.5) sec INR 1.3 H (<1.2) APTT 63.3 H (22.0-30.0) sec Potassium (3.5-5.1) mmol/L Carbon Dioxide (22-30) mmol/L BUN (9-20) mg/dL Glucose (74-99) mg/dL Calcium (8.4-10.2) mg/dL Microbiology - Last 24 Hours (Table) 01/15/24 16:30 Blood Culture - Preliminary Blood 01/15/24 16:45 Blood Culture - Preliminary Blood Assessment and Plan Assessment: unstable angina with significant stenosis in LAD status post stent placement acute COPD exacerbation, patient on bronchodilators and IV steroidsand broad- spectrum antibiotic Acute purulent tracheobronchitis, continue broad-spectrum antibiotics with Rocephin and Zithromax obtain sputum for Gram stain and culture if possible Acute on chronic hypoxic respiratory failure requiring 4 L nasal cannula now to keep saturation in low to mid 90s Status post aortic valve replacement with mechanical aortic valve on Coumadin fo r higher INR between 2.5/3.5 Severe degree of peripheral vascular disease, continue high-intensity statins dual antiplatelet agent smoking cessation Plan: as above Time with Patient: Greater than 30
--- NOTE | 2024-01-20 14:56 | P.PN ---
Subjective Progress Note Date: 01/20/24 Principal diagnosis: right wrist hematoma formation with bruising involving forearm cardiovascular services following unstable angina with significant stenosis in LAD status post stent placement acute COPD exacerbation, patient on bronchodilators and IV steroidsand broad-spectrum antibiotic Acute purulent tracheobronchitis, continue broad-spectrum antibiotics with Rocephin and Zithromax obtain sputum for Gram stain and culture if possible Acute on chronic hypoxic respiratory failure requiring 4 L nasal cannula now to keep saturation in low to mid 90s Status post aortic valve replacement with mechanical aortic valve on Coumadin for higher INR between 2.5/3.5 Severe degree of peripheral vascular disease, continue high-intensity statins dual antiplatelet agent smoking cessation 01/20/2024, discharge held because of the pain and significant ecchymosis of the right upper extremity forearm patient has pressured bandage. Cardiovascular services following, from pulmonary standpoint however patient is doing well on 3 L nasal cannula likely will need home oxygen and will evaluate as outpatient 01/19/2024, patient seen eval examined during rounds labs reviewed medications reviewed care plan discussed,respiratory status is marginal but stable, on supplemental oxygen hemodynamic status stable, leg computed tomography scan stress test available finding consistent with mid to apical inferior wall with inducible serg-infarct ischemia cardiac cath planned for January 17 underwent stent placement to LAD with ANGIE approach right wrist, complaining of superficial bleeding on right radial side, cardiovascular services following 78-year-old male with extensive history of COPD along with peripheral vascular disease and cardiovascular disease with history of bilateral carotid endarterectomy, aortic valve replacement, open heart surgery. extensive history of smoking since he was 15 years old 1-2 packs per daypatient stopped smoking in December, has been short of breath constantly, was admitted at [facility] subsequently signed out AMA went home and felt that he is doing better but however due to relapse of poor respiratory status decided to come into busy department for further evaluation, patient does not use oxygen and CPAP machine, patient has a trilogy inhaler once a day and as needed better to a witnessed. He denies any hemoptysis, howeversputum has been take tenacious. on 4 L oxygen sats were 93%, chest x-ray no active pulmonary process seen x-ray of emphysema, labs significant for leukocytosis of the busy on 15 his the viral panel has been negative, patient has been on Coumadin for mechanical aortic valve Objective - Vital Signs Vital signs: Vital Signs Temp 96.8 F L 01/20/24 08:00 Pulse 75 01/20/24 12:50 Resp 16 01/20/24 08:00 BP 131/64 01/20/24 12:00 Pulse Ox 100 01/20/24 12:00 FiO2 Intake & Output 01/19/24 01/20/24 01/20/24 18:59 06:59 18:59 Intake Total 404.057 780 320 Output Total 650 750 550 Balance -245.943 30 -230 Weight 59.7 kg Intake: Intake, IV Titration 124.057 120 Amount Heparin Sod,Pork in 0.45% 124.057 NaCl 25,000 unit In 0.45 % NaCl 1 250ml.bag @ 12 UNITS/KG/HR 7.164 mls/hr IV .Q24H [facility] Rx#: [id number] Sodium Chloride 0.9% 1, 120 000 ml @ 0 mls/hr IV .[facility] Rx#:[id number] Oral 280 780 200 Output: Urine 650 750 550 Other: Voiding Method Toilet Toilet Toilet Urinal Urinal Urinal # Bowel Movements 0 - Exam - Constitutional General appearance: average body habitus, cooperative, disheveled, mild distress - EENT Eyes: EOMI, PERRLA ENT: normal oropharynx Ears: bilateral: normal - Neck Neck: normal ROM Carotids: bilateral: upstroke normal Thyroid: negative: normal size - Respiratory Respiratory: bilateral: diminished, prolonged expiration - Cardiovascular Rhythm: regular Heart sounds: normal: S1, S2 - Gastrointestinal General gastrointestinal: normal bowel sounds, soft - Integumentary Integumentary: normal turgor - Neurologic Neurologic: CNII-XII intact - Musculoskeletal Musculoskeletal: gait normal, generalized weakness, strength equal bilaterally - Psychiatric Psychiatric: A&O x's 3, appropriate affect, intact judgment & insight - Labs CBC & Chem 7: 01/19/24 14:50 01/19/24 14:50 Labs: Abnormal Lab Results - Last 24 Hours (Table) 01/19/24 01/19/24 01/20/24 Range/Units 14:50 14:50 08:57 WBC 17.9 H (3.8-10.6) k/uL RBC 4.03 L (4.30-5.90) m/uL Hgb 12.3 L (13.0-17.5) gm/dL MCHC 30.7 L (31.0-37.0) g/dL Neutrophils # 15.8 H (1.3-7.7) k/uL PT 20.6 H (10.0-12.5) sec INR 2.1 H (<1.2) Creatinine 1.29 H (0.66-1.25) mg/dL Assessment and Plan Assessment: right wrist hematoma formation with significant ecchymosis of the right forearm, cardiovascular services evaluating the forearm unstable angina with significant stenosis in LAD status post stent placement acute COPD exacerbation, patient on bronchodilators and IV steroidsand broad- spectrum antibiotic Acute purulent tracheobronchitis, continue broad-spectrum antibiotics with Rocephin and Zithromax obtain sputum for Gram stain and culture if possible Acute on chronic hypoxic respiratory failure requiring 4 L nasal cannula now to keep saturation in low to mid 90s Status post aortic valve replacement with mechanical aortic valve on Coumadin for higher INR between 2.5/3.5 Severe degree of peripheral vascular disease, continue high-intensity statins dual antiplatelet agent smoking cessation Plan: as abovefrom pulmonary standpoint patient has been doing fairly well would recommend follow-up as outpatient continue home oxygen, bronchodilator further recommendations pending, we'll sign off for now Time with Patient: Greater than 30
[2024-01-20 17:14] LABS: HGB 10.9 gm/dL (13.0-17.5); Hypochromasia Slight; MCHC 30.1 g/dL (31.0-37.0); MCV 99.5 fL (80.0-100.0); Mean Platelet Volume 10.2; Platelet Count 221 k/uL (150-450); RBC 3.62 m/uL (4.30-5.90); RDW 12.8 % (11.5-15.5); WBC 22.4 k/uL (3.8-10.6)
[2024-01-20] MEDS: SODIUM CHLORIDE 0.9% 500 ML 250 ML IV ONE (18:01)
--- NOTE | 2024-01-20 22:20 | PN ---
PROGRESS NOTE SUBJECTIVE: This is a 78-year-old white male, Dr. Armstrong prior stenting. He went and had a 60% blockage of his LAD. He is going to follow up with the Coumadin clinic. He is cleared for discharge from Cardiology. Follow up in 1 week. He has acute hypoxemic respiratory failure secondary to COPD exacerbation, systolic heart failure, non-STEMI, prior stenting of the carotids, valvular heart disease, mechanical valve, aortic valve, nonischemic cardiomyopathy, nicotine addiction. Denies chest pain. Heparin drip was discontinued. OBJECTIVE: VITAL SIGNS: Blood pressure 126/60. LUNGS: Transmitted upper sounds. CARDIOVASCULAR: S1, S2. HEMATOLOGY: Negative for Homans. PSYCH: Fair mood and affect. I will see what Dr. Hernandez says about discharge. MMODL / IJN: [id number] /
[2024-01-20] MEDS: WARFARIN 2.5 MG TAB PO ONE (23:36)
[2024-01-21 09:09] VITALS: RESP 16
[2024-01-21 11:43] LABS: INR 2.9 (<1.2); Prothrombin Time 28.5 sec (10.0-12.5)
[2024-01-21 11:55] VITALS: BP 108/51; PULSE 62; TEMP 97.6
--- NOTE | 2024-01-21 16:08 | P.PN ---
Subjective Progress Note Date: 01/21/24 Consult reason: congestive heart failure History of present illness: History of present illness: This is a 78-year-old male patient of Dr. Armstrong with past medical history of carotid atherosclerosis and prior stenting of the left internal carotid artery and carotid endarterectomy of the right internal carotid artery as well as valvular heart disease status post aortic valve replacement using a mechanical valve, nonischemic cardiomyopathy, tobacco use and dependence. We have been asked to evaluate the patient for CHF. Patient's initial pulse ox was 80% on room air. He has been placed on 4 L nasal cannula with pulse ox 93% now. Patient gives history that he stopped smoking cold turkey and he saw his pulmonary doctor on was sent to [facility] and was admitted. He states he left there yesterday and since his breathing has been getting worse. He complains of dyspnea on exertion and sometimes with sitting he has shortness of breath. He denies having any chest pain or pressure. Patient is status post 1 dose of IV Lasix 40 mg followed by 40 mg every 12 hours also started on IV Solu-Medrol, Symbicort and DuoNeb. EKG sinus rhythm with left ventricular hypertrophy Chest x-ray: No acute cardiopulmonary process. Emphysematous changes of the lungs. WBC 15.2, hemoglobin 12.9. INR 9.9. Sodium 138, potassium 4.2, BUN 22 creatinine 0.67. Glucose 111. Troponin 0.092, 0.098, 0.115. proBNP 5930. Influenza A, influenza B, RSV, COVID-19 not detected. Home cardiac medications: Carvedilol 12.5 mg twice daily, lisinopril 2.5 mg daily, Crestor 40 mg daily, Coumadin 5 mg daily. 01/16 Patient complains of scratchy throat. He denies any chest pain. He states he is eating and feeling well. Patient underwent Lexiscan stress test this morning which revealed a fixed defect along the apical to mid anterior wall which ac centuates on stress. Gated and analysis shows limited augmentation of this portion of the wall estimated LV EF 59%. 3 times daily is calculated at 0.92 with an normal limits. Findings suggestive of area of poor infarct along the mid to apical anterior wall with inducible serg-infarct ischemia. E chocardiogram reveals EF of 50 to 55%. Mechanical valve in aortic position with mean gradient of 17 mmHg. Aortic valve is poorly visualized. Blood pressure 127/88, heart rate 60, pulse ox 94% on 2 L. INR 1.3. He has been on IV Lasix 40 mg every 12 hours which we will transition to oral. 01/18 Due to abnormal Lexiscan stress test, patient was scheduled for cardiac catheterization with Dr. Armstrong which revealed intermediate lesion involving the mid LAD and successful stenting of the mid LAD. Blood pressure 108/63, heart rate 67, pulse ox 96% on 2 L nasal cannula. Repeat INR 1.3. Patient has had some superficial bleeding from the right radial site. No hematoma. Patient denies having any chest pain no fatigue, no lightheadedness or dizziness.. 01/19 Patient was prepared for discharge home yesterday but he had significant bleeding to the right wrist area. Dr. Hutchinson a dressing with new TR and dressing. Patient denies having any chest pain. He has been on a heparin drip which will be discontinued. INR this morning 2.1. Patient will not require bridging at the time of discharge. Blood pressure 126/60, heart rate 71, pulse ox 97% on 2 L nasal cannula. 01/20 Patient had control of bleeding yesterday but he had a low blood pressure of 80/50. He had a fluid bolus given. Patient denies any new concerns. He states he slept well last night. No chest pain or chest pressure. Blood pressure is now 108/51-165/57, heart rate 62, pulse ox 96% on room air. INR is 2.9. Physical examination: Gen: This is a 78-year-old male in no acute distress. VS: reviewed. HEENT: Head is atraumatic, normocephalic. Pupils equal, round. Sclerae is anicteric. LUNGS: Decreased breath sounds bilaterally. No intercostal retractions. HEART: Regular rate and rhythm. Mechanical S2, systolic murmur. EXTREMITIES: No pedal edema. No calf tenderness. Significant ecchymosis to the right forearm with bleeding at the site of the puncture wound. NEUROLOGICAL: Patient is awake, alert and oriented x3. Assessment: Acute hypoxic respiratory failure secondary COPD exacerbation and minimal component of acute systolic heart failure Coagulopathy secondary to Coumadin use Leukocytosis Non-ST elevated myocardial infarction Carotid atherosclerosis with prior stenting of the left internal carotid and endarterectomy of the right internal carotid Valvular heart disease status post aortic valve replacement with mechanical valve Nonischemic cardiomyopathy Tobacco use and dependence Plan: Continue patient's current cardiac medications, new medications have been sent to his pharmacy Patient may follow-up in the Coumadin clinic on Tuesday for INR Patient is cleared for discharge from cardiology and may follow-up with Dr. Armstrong in 1 week Smoking cessation counseling, referral to [place] quit line Nurse practitioner note has been reviewed, I agree with documented findings and plan of care. Patient was seen and examined. Objective - Vital Signs Vital signs: Vital Signs Temp 97.5 F L 01/21/24 08:46 Pulse 75 01/21/24 08:46 Resp 16 01/21/24 08:46 BP 165/57 01/21/24 08:46 Pulse Ox 95 01/21/24 08:46 FiO2 Intake & Output 01/20/24 01/21/24 01/21/24 18:59 06:59 18:59 Intake Total 560 120 250 Output Total 550 800 Balance 10 -680 250 Intake: IV 10 Invasive Line 3 10 Intake, IV Titration 120 Amount Sodium Chloride 0.9% 1, 120 000 ml @ 0 mls/hr IV .Liquid X ONE Rx#:[id number] Oral 440 120 240 Output: Urine 550 800 Other: Voiding Method Toilet Toilet Toilet Urinal Urinal Urinal - Labs CBC & Chem 7: 01/20/24 16:52 01/19/24 14:50 Labs: Abnormal Lab Results - Last 24 Hours (Table) 01/20/24 Range/Units 16:52 WBC 22.4 H (3.8-10.6) k/uL RBC 3.62 L (4.30-5.90) m/uL Hgb 10.9 L (13.0-17.5) gm/dL Hct 36.0 L (39.0-53.0) % MCHC 30.1 L (31.0-37.0) g/dL Microbiology - Last 24 Hours (Table) 01/15/24 16:30 Blood Culture - Final Blood 01/15/24 16:45 Blood Culture - Final Blood
== END 2024-01-21 12:50 | disposition home or self-care (01) | DRG 321 ==
LOC: EC 15:38 → 3SCARD 19:21
PROVIDERS: ADMIT Family Medicine; ATTEND Family Medicine
PROC: 027034Z Dilation of Coronary Artery, One Artery with Drug-eluting Intraluminal Device, Percutaneous Approach (ICD-10-PCS; principal; 2024-01-18 11:20)
PROC: 4A023N7 Measurement of Cardiac Sampling and Pressure, Left Heart, Percutaneous Approach (ICD-10-PCS; 2024-01-18 11:20)
PROC: B2111ZZ Fluoroscopy of Multiple Coronary Arteries using Low Osmolar Contrast (ICD-10-PCS; 2024-01-18 11:20)
DX: I21.4 Non-ST elevation (NSTEMI) myocardial infarction (principal); I50.23 Acute on chronic systolic (congestive) heart failure; J96.21 Acute and chronic respiratory failure with hypoxia; J44.1 Chronic obstructive pulmonary disease with (acute) exacerbation; I42.8 Other cardiomyopathies; I25.110 Atherosclerotic heart disease of native coronary artery with unstable angina pectoris; I11.0 Hypertensive heart disease with heart failure; I65.29 Occlusion and stenosis of unspecified carotid artery; R79.1 Abnormal coagulation profile; S60.211A Contusion of right wrist, initial encounter; T45.515A Adverse effect of anticoagulants, initial encounter; E78.5 Hyperlipidemia, unspecified; Z79.01 Long term (current) use of anticoagulants; Z79.899 Other long term (current) drug therapy; Z95.1 Presence of aortocoronary bypass graft; Z95.2 Presence of prosthetic heart valve; Z87.891 Personal history of nicotine dependence; Z11.52 Encounter for screening for COVID-19
CPT/HCPCS: 36415; 71046; 76937; 78452; 80048; 80053; 82565; 83605; 83735; 83880; 84484; 85025; 85027; 85379; 85610; 85730; 87040; 87636; 92978; 93005; 93017; 93306; 93458; 93799; 94640; 94760; 96365; 96366; 96367; 96375; 96376; 99291

== ENCOUNTER → 2024-06-29 | Outpatient (CLI) | payer MEDICARE ==
[2024-06-29 15:36] LABS: African American GFR (CKD) >90 (>60 ml/min/1.73 sqM); Blood Urea Nitrogen 10 mg/dL (9-20); Non-African American GFR(CKD) 89 (>60 ml/min/1.73 sqM)
--- NOTE | 2024-06-29 22:28 | CT ---
EXAMINATION TYPE: CT angio neck DATE OF EXAM: 06/29/2024 HISTORY: carotid stenosis COMPARISON: 07/22/2021 CT DLP: 224.2 mGycm. Automated Exposure Control for Dose Reduction was Utilized. TECHNIQUE: CTA scan of the neck is performed with IV Contrast, patient injected with 65 mL of Isovue 370, axial images are obtained, coronal and sagittal reformatted images are reviewed. Three-D recons tructed images are created on an independent workstation and reviewed. Source images are reviewed. FINDINGS: Carotid/Vascular Structures: There may be a common origin from the innominate of the left common childers tid artery right subclavian. Left internal carotid artery at its origin has a couple of areas of severe stenosis. The most severe measures 72%. There is stenting the right internal carotid artery. The second severe stenosis just distal to the stented area is estimated at 69%. The severe areas of stenosis appears to be within the distal portion of the stent and at the first portion just distal to the stent. No significant flow-limiting stenosis of the right carotid bifurcation. Vertebral arteries are codominant. Internal carotid arteries and vertebral arteries are patent to the skull base. Other: The left subclavian artery origin appears to have severe stenosis at the origin. IMPRESSION: 1. No flow-limiting stenosis bilateral carotid bifurcations. 2. Normal [place] NASCET criteria was used in interpretation of this exam? [facility], Workstation: [facility]ica[facility]IS, 06/29/2024 10:25 PM
== END | disposition home or self-care (01) ==
LOC: RADCTMAIN 14:42
PROVIDERS: ATTEND Internal Medicine Interventional Cardiology
DX: I65.21 Occlusion and stenosis of right carotid artery (principal)
CPT/HCPCS: 36415; 70498; 82565; 84520

== ENCOUNTER 2024-10-06 12:23 | Emergency (ER) | payer MEDICARE ==
--- NOTE | 2024-10-06 12:33 | ED ---
General Adult HPI - General Chief complaint: Skin/Abscess/Foreign Body Stated complaint: Pain in L WR Time Seen by Provider: 10/06/24 12:32 Source: patient Mode of arrival: ambulatory Limitations: no limitations - Related Data Home Medications Medication Instructions Recorded Confirmed Multivitamins, Thera [Multivitamin 1 tab PO DAILY 10/12/21 01/15/24 (formulary)] Warfarin [Coumadin] 5 mg PO DAILY 10/12/21 01/15/24 carvediloL 12.5 mg PO BID 05/13/22 01/15/24 Fluticasone/Umeclidin/Vilanter 1 puff INHALATION RT-DAILY 01/15/24 01/15/24 [Trelegy Ellipta 100-62.5-25] lisinopriL [Zestril] 2.5 mg PO DAILY 01/15/24 01/15/24 ursodioL [Ursodiol] 300 mg PO BID 01/15/24 01/15/24 Previous Rx's Medication Instructions Recorded Atorvastatin [Lipitor] 80 mg PO DAILY #90 tab 01/19/24 Clopidogrel [Plavix] 75 mg PO DAILY #90 tab 01/19/24 Nitroglycerin Sl Tabs [Nitrostat] 0.4 mg SUBLINGUAL Q5M PRN #25 tab 01/19/24 Ipratropium-Albuterol Nebulize 3 ml INHALATION RT-TID 30 Days 01/20/24 [Duoneb 0.5 mg-3 mg/3 ml Soln] #120 each Pantoprazole [Protonix] 40 mg PO AC-BRKFST 90 Days #90 tab 01/20/24 acetaZOLAMIDE [Diamox] 250 mg PO TID 90 Days #90 tab 01/20/24 Allergies Allergy/AdvReac Type Severity Reaction Status Date / Time No Known Allergies Allergy Verified 10/06/24 12:25 Review of Systems ROS Statement: Those systems with pertinent positive or pertinent negative responses have been documented in the HPI. ROS Other: All systems not noted in ROS Statement are negative. Past Medical History Past Medical History: Coronary Artery Disease (CAD), COPD, Hyperlipidemia, Hypertension Additional Past Medical History / Comment(s): Exposure to agent orange. Carotid stenosis. 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 Cataract surgery. Hydrocele surgery,arch study,left carotid stent. azra carotidendartectomy Past Anesthesia/Blood Transfusion Reactions: No Reported Reaction Additional Past Anesthesia/Blood Transfusion Reaction / Comment(s): no reaction to possible blood transfusion 1990s for heart surgery Past Psychological History: No Psychological Hx Reported Smoking Status: Former smoker Past Alcohol Use History: None Reported Past Drug Use History: None Reported - Past Family History Mother Family Medical History: Cancer Father Family Medical History: Coronary Artery Disease (CAD) General Exam Limitations: no limitations Course Vital Signs 10/06/24 12:25 Temperature 98.2 F Pulse Rate 99 Respiratory 20 Rate Blood Pressure 148/78 O2 Sat by Pulse 93 L Oximetry Disposition Condition: Stable Is patient prescribed a controlled substance at d/c from ED?: No Referrals: [facility],Clinic [Primary Care Provider] - 1-2 days
--- NOTE | 2024-10-06 12:41 | ED ---
Skin/Abscess/FB HPI - General Chief complaint: Skin/Abscess/Foreign Body Stated complaint: Pain in L WR Time Seen by Provider: 10/06/24 12:37 Source: patient, RN notes reviewed Mode of arrival: ambulatory Limitations: no limitations - History of Present Illness Initial comments: This is a 79-year-old male with history of CAD and cardiac valve replacement presenting with left hand swelling, redness and pain (7/10) x 3 days. Patient states the redness seems to be extending from his hand/wrist and moving proximally since start of symptoms. Endorses associated limited range of motion due to edema. Denies recent trauma, fall or known cause for swelling and erythema. Endorses use of warfarin and Xarelto but denies history of DVT. Denies fever, chills, chest pain, dyspnea, dizziness. MD complaint: discoloration Onset/Timin -: days(s) Location: L hand Severity scale (1-10): 7 Consistency: constant Context: none Associated symptoms: denies other symptoms Treatments Prior to Arrival: none - Related Data Home Medications Medication Instructions Recorded Confirmed Multivitamins, Thera [Multivitamin 1 tab PO DAILY 10/12/21 01/15/24 (formulary)] Warfarin [Coumadin] 5 mg PO DAILY 10/12/21 01/15/24 carvediloL 12.5 mg PO BID 05/13/22 01/15/24 Fluticasone/Umeclidin/Vilanter 1 puff INHALATION RT-DAILY 01/15/24 01/15/24 [Trelegregory Ellipta 100-62.5-25] lisinopriL [Zestril] 2.5 mg PO DAILY 01/15/24 01/15/24 ursodioL [Ursodiol] 300 mg PO BID 01/15/24 01/15/24 Previous Rx's Medication Instructions Recorded Atorvastatin [Lipitor] 80 mg PO DAILY #90 tab 01/19/24 Clopidogrel [Plavix] 75 mg PO DAILY #90 tab 01/19/24 Nitroglycerin Sl Tabs [Nitrostat] 0.4 mg SUBLINGUAL Q5M PRN #25 tab 01/19/24 Ipratropium-Albuterol Nebulize 3 ml INHALATION RT-TID 30 Days 01/20/24 [Duoneb 0.5 mg-3 mg/3 ml Soln] #120 each Pantoprazole [Protonix] 40 mg PO AC-BRKFST 90 Days #90 tab 01/20/24 acetaZOLAMIDE [Diamox] 250 mg PO TID 90 Days #90 tab 01/20/24 methylPREDNISolone Dose Pack 4 mg PO DIRECTED #21 tab 10/06/24 [Medrol Dose Pack] Allergies Allergy/AdvReac Type Severity Reaction Status Date / Time No Known Allergies Allergy Verified 10/06/24 12:25 Review of Systems ROS Statement: Those systems with pertinent positive or pertinent negative responses have been documented in the HPI. ROS Other: All systems not noted in ROS Statement are negative. Past Medical History Past Medical History: Coronary Artery Disease (CAD), COPD, Hyperlipidemia, Hypertension Additional Past Medical History / Comment(s): Exposure to agent orange. Carotid stenosis. 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 Cataract surgery. Hydrocele surgery,arch study,left carotid stent. azra carotidendartectomy Past Anesthesia/Blood Transfusion Reactions: No Reported Reaction Additional Past Anesthesia/Blood Transfusion Reaction / Comment(s): no reaction to possible blood transfusion 1990s for heart surgery Past Psychological History: No Psychological Hx Reported Smoking Status: Former smoker Past Alcohol Use History: None Reported Past Drug Use History: None Reported - Past Family History Mother Family Medical History: Cancer Father Family Medical History: Coronary Artery Disease (CAD) General Exam Limitations: no limitations General appearance: alert, in no apparent distress Head exam: Present: atraumatic, normocephalic, normal inspection Eye exam: Present: normal appearance, PERRL, EOMI. Absent: scleral icterus, conjunctival injection, periorbital swelling ENT exam: Present: normal exam, mucous membranes moist Neck exam: Present: normal inspection. Absent: tenderness, meningismus, lymp hadenopathy Respiratory exam: Present: normal lung sounds bilaterally. Absent: respiratory distress, wheezes, rales, rhonchi, stridor Cardiovascular Exam: Present: regular rate, normal rhythm, normal heart sounds. Absent: systolic murmur, diastolic murmur, rubs, gallop, clicks GI/Abdominal exam: Present: soft, normal bowel sounds. Absent: distended, tenderness, guarding, rebound, rigid Extremities exam: Present: normal capillary refill, joint swelling (Positive mild edema of the left wrist), other (Left hand distal neurovascular and motor function intact. Patient endorses some LROM with wrist flexion due to edema. Negative left hand/wrist/forearm TTP, warmth, open wound, deformity, crepitus). Absent: tenderness, pedal edema, calf tenderness Back exam: Present: normal inspection Neurological exam: Present: alert, oriented X3, CN II-XII intact Psychiatric exam: Present: normal affect, normal mood Skin exam: Present: warm, dry, intact, normal color. Absent: rash Course Vital Signs 10/06/24 10/06/24 10/06/24 12:25 14:16 15:42 Temperature 98.2 F 98.7 F 98.4 F Pulse Rate 99 82 89 Respiratory 20 16 17 Rate Blood Pressure 148/78 141/75 153/78 O2 Sat by Pulse 93 L 93 L 94 L Oximetry 10/06/24 16:36 Temperature 98.2 F Pulse Rate 79 Respiratory 19 Rate Blood Pressure 126/68 O2 Sat by Pulse 93 L Oximetry Medical Decision Making - Medical Decision Making Was pt. sent in by a medical professional or institution (, PA, DRY GOODS INSPECTOR, urgent care, hospital, or [facility]...) When possible be specific @ -No Did you speak to anyone other than the patient for history (EMS, parent, family, police, friend...)? What history was obtained from this source @ -No Did you review nursing and triage notes (agree or disagree)? Why? @ -I reviewed and agree with nursing and triage notes Were old charts reviewed (outside hosp., previous admission, EMS record, old EKG, old radiological studies, urgent care reports/EKG's, [facility] records)? Report findings @ -No old charts were reviewed Differential Diagnosis (chest pain, altered mental status, abdominal pain women, abdominal pain men, vaginal bleeding, weakness, fever, dyspnea, syncope, heada neil, dizziness, GI bleed, back pain, seizure, CVA, palpatations, mental health, musculoskeletal)? @ -Cellulitis, DVT, arterial occlusion, erysipelas, fracture, sprain, dislocation, this is not an exhaustive list EKG interpreted by me (3pts min.). @ -Not done X-rays interpreted by me (1pt min.). @ -Left wrist x-ray shows advanced osteoarthritic changes of radial aspect of left wrist. CT interpreted by me (1pt min.). @ -None done U/S interpreted by me (1pt. min.). @ - Left upper extremity Doppler ultrasound shows no evidence of DVT. What testing was considered but not performed or refused? (CT, X-rays, U/S, labs)? Why? @ -None What meds were considered but not given or refused? Why? @ -None Did you discuss the management of the patient with other professionals (professionals i.e. , PA, DRY GOODS INSPECTOR, lab, RT, psych nurse, administrator social welfare, supervisor machine setter, teacher, staff mine warfare officer, dependency case manager)? Give summary @ -No Was smoking cessation discussed for >3mins.? @ -No Was critical care preformed (if so, how long)? @ -No Were there social determinants of health that impacted care today? How? (Homelessness, low income, unemployed, alcoholism, drug addiction, transp ortation, low edu. Level, literacy, decrease access to med. care, long term, rehab)? @ -No Was there de-escalation of care discussed even if they declined (Discuss DNR or withdrawal of care, Hospice)? DNR status @ -No What co-morbidities impacted this encounter? (DM, HTN, Smoking, COPD, CAD, Cancer, CVA, ARF, Chemo, Hep., AIDS, mental health diagnosis, sleep apnea, morbid obesity)? @ -None Was patient admitted / discharged? Hospital course, mention meds given and route, prescriptions, significant lab abnormalities, going to OR and other pertinent info. @ -Lab work shows leukocytosis with left shift. Elevated PT/INR and PTT. Otherwise unremarkable lab work. Left upper extremity Doppler ultrasound shows no evidence of DVT. Left wrist x-ray shows advanced osteoarthritic changes of radial aspect of left wrist. Patient provided IV Toradol initially for pain, followed by IV Solu-Medrol with significant pain relief noted by patient. Medrol Dosepak sent to patient's pharmacy. Advised follow-up with orthopedist for ongoing management of wrist arthritis. Discussed patient with Dr. Quiroga. When Alyssa Undiagnosed new problem with uncertain prognosis? @ -No Drug Therapy requiring intensive monitoring for toxicity (Heparin, Nitro, Insulin, Cardizem)? @ -No Were any procedures done? @ -No Diagnosis/symptom? @ -Advanced wrist osteoarthritis Acute, or Chronic, or Acute on Chronic? @ -Acute Uncomplicated (without systemic symptoms) or Complicated (systemic symptoms)? @ -Uncomplicated Side effects of treatment? @ -No Exacerbation, Progression, or Severe Exacerbation? @ -No Poses a threat to life or bodily function? How? (Chest pain, [place], [place], pneumonia, PE, COPD, DKA, ARF, appy, cholecystitis, CVA, Diverticulitis, Homicidal, Suicidal, threat to staff... and all critical care pts) @ -No - Lab Data Result diagrams: 10/06/24 12:47 10/06/24 12:47 Lab Results 10/06/24 10/06/24 10/06/24 Range/Units 12:47 12:47 12:47 WBC 12.5 H (3.8-10.6) k/uL RBC 4.40 (4.30-5.90) m/uL Hgb 13.5 (13.0-17.5) gm/dL Hct 41.0 (39.0-53.0) % MCV 93.2 (80.0-100.0) fL MCH 30.8 (25.0-35.0) pg MCHC 33.0 (31.0-37.0) g/dL RDW 13.6 (11.5-15.5) % Plt Count 183 (150-450) k/uL MPV 8.6 Neutrophils % 74 % Lymphocytes % 14 % Monocytes % 9 % Eosinophils % 2 % Basophils % 0 % Neutrophils # 9.2 H (1.3-7.7) k/uL Lymphocytes # 1.7 (1.0-4.8) k/uL Monocytes # 1.2 H (0-1.0) k/uL Eosinophils # 0.2 (0-0.7) k/uL Basophils # 0.0 (0-0.2) k/uL PT 34.1 H (10.0-12.5) sec INR 3.4 H (<1.2) APTT 42.8 H (22.0-30.0) sec Sodium 137 (137-145) mmol/L Potassium 3.8 (3.5-5.1) mmol/L Chloride 98 (98-107) mmol/L Carbon Dioxide 30 (22-30) mmol/L Anion Gap 9 mmol/L BUN 9 (9-20) mg/dL Creatinine 0.65 L (0.66-1.25) mg/dL Est GFR (CKD-EPI)AfAm >90 (>60 ml/min/1.73 sqM) Est GFR (CKD-EPI)NonAf >90 (>60 ml/min/1.73 sqM) Glucose 96 (74-99) mg/dL Calcium 9.1 (8.4-10.2) mg/dL Total Bilirubin 1.4 H (0.2-1.3) mg/dL AST 34 (17-59) U/L ALT 19 (4-49) U/L Alkaline Phosphatase 131 H (38-126) U/L Total Protein 6.6 (6.3-8.2) g/dL Albumin 4.1 (3.5-5.0) g/dL Disposition Clinical Impression: Osteoarthritis of hand, left Disposition: HOME SELF-CARE Condition: Good Instructions (If sedation given, give patient instructions): Osteoarthritis (ED) Prescriptions: methylPREDNISolone Dose Pack [Medrol Dose Pack] 4 mg PO DIRECTED #21 tab Is patient prescribed a controlled substance at d/c from ED?: No Referrals: [facility],Clinic [Primary Care Provider] - 1-2 days Time of Disposition: 15:24
[2024-10-06] MEDS: KETOROLAC 15 MG/ML 1 ML VIAL IVP STA (12:55)
[2024-10-06 13:02] LABS: Basophils % (A) 0 %; Eosinophils # (A) 0.2 k/uL (0-0.7); Eosinophils % (A) 2 %; HGB 13.5 gm/dL (13.0-17.5); Lymphocytes # (A) 1.7 k/uL (1.0-4.8); Lymphocytes % (A) 14 %; MCH 30.8 pg (25.0-35.0); MCV 93.2 fL (80.0-100.0); Mean Platelet Volume 8.6; Monocytes # (A) 1.2 k/uL (0-1.0); Monocytes % (A) 9 %; Neutrophils # (A) 9.2 k/uL (1.3-7.7); Neutrophils % (A) 74 %; Platelet Count 183 k/uL (150-450); RDW 13.6 % (11.5-15.5); WBC 12.5 k/uL (3.8-10.6)
[2024-10-06 13:16] LABS: ALT 19 U/L (4-49); AST 34 U/L (17-59); African American GFR (CKD) >90 (>60 ml/min/1.73 sqM); Albumin 4.1 g/dL (3.5-5.0); Alkaline Phosphatase 131 U/L (38-126); Anion Gap 9 mmol/L; Blood Urea Nitrogen 9 mg/dL (9-20); Calcium 9.1 mg/dL (8.4-10.2); Carbon Dioxide 30 mmol/L (22-30); Chloride 98 mmol/L (98-107); Glucose 96 mg/dL (74-99); Non-African American GFR(CKD) >90 (>60 ml/min/1.73 sqM); Potassium 3.8 mmol/L (3.5-5.1); Sodium 137 mmol/L (137-145); Total Bilirubin 1.4 mg/dL (0.2-1.3); Total Protein 6.6 g/dL (6.3-8.2)
[2024-10-06 13:17] LABS: INR 3.4 (<1.2); Partial Thromboplastin Time 42.8 sec (22.0-30.0); Prothrombin Time 34.1 sec (10.0-12.5)
--- NOTE | 2024-10-06 13:45 | XR ---
Left wrist. HISTORY: Pain and swelling. COMPARISON: None TECHNIQUE: 3 views of the left wrist were obtained. LUNGS: There is mild osteopenia. There is advanced joint space narrowing, hypertrophic spurring and subchondral sclerosis at the first carpometacarpal joint and of the scaphoid trapezium articulation. There is mild chondrocalcinosis involving the triangular fibrocartilage complex. There is mild cystic change within the lunate. There is no acute fracture or dislocation. IMPRESSION: 1.Advanced osteoarthritic changes of the radial aspect of the left wrist as described above 2. Mild chondrocalcinosis involving the triangular fibrocartilage complex. 3. No acute trauma. [facility], Workstation: [facility], 10/06/2024 1:42 PM
--- NOTE | 2024-10-06 15:15 | US ---
EXAMINATION TYPE: US venous doppler duplex UE LT DATE OF EXAM: 10/06/2024 COMPARISON: None. CLINICAL INDICATION: Male, 79 years old with history of Pain, edema, erythema; TECHNIQUE: Grayscale, color Doppler and spectral Doppler imaging of the upper extremity. SIDE PERFORMED: VESSELS IMAGED: IJV Subclavian Vein Axilla Vein Brachial Vein(s) Radial Paired Veins Ulnar Paired Veins Cephalic Vein* Basilic Vein* (*superficial vessels) FINDINGS: Left Arm: No evidence of deep vein thrombosis. Grayscale, color doppler, spectral doppler imaging performed of the deep veins of the upper extremiti es. IMPRESSION: No sonographic evidence of left upper extremity DVT. [facility], , 10/06/2024 3:13 PM
[2024-10-06] MEDS: methylPREDNISolone SOD SUCCI 125 MG/2 ML VIAL IV STA (15:38)
[2024-10-06 16:38] VITALS: BP 126/68; PULSE 79; RESP 19; TEMP 98.2
== END 2024-10-06 16:38 | disposition home or self-care (01) ==
LOC: EC 12:23
DX: M19.032 Primary osteoarthritis, left wrist (principal); Z87.891 Personal history of nicotine dependence; Z95.1 Presence of aortocoronary bypass graft; Z95.2 Presence of prosthetic heart valve
CPT/HCPCS: 36415; 80053; 85025; 85610; 85730; 73110; 93971; 99284; 96374; 96375; J1885; J2919

== ENCOUNTER 2024-10-14 13:24 | Emergency (ER) | payer MEDICARE ==
[2024-10-14 13:29] VITALS: PULSE 96; TEMP 98.2
[2024-10-14] MEDS: KETOROLAC 15 MG/ML 1 ML VIAL IM STA (14:34)
--- NOTE | 2024-10-14 14:36 | ED ---
General Adult HPI - General Chief complaint: Extremity Problem,Nontraumatic Stated complaint: Right hand pain Time Seen by Provider: 10/14/24 14:21 Source: patient, RN notes reviewed, old records reviewed Mode of arrival: ambulatory Limitations: no limitations - History of Present Illness Initial comments: Patient is a 79-year-old male present to the emergency department with concern for right wrist pain. Onset of symptoms was a day or 2 ago. Symptoms have slowly progressed since that time. Patient did have similar symptoms with his left wrist just over a week ago and symptoms resolved with anti-inflammatories and steroids. Patient has discomfort of the right wrist with some swelling and mild redness. Discomfort increases with movement. No fever. No trauma. - Related Data Home Medications Medication Instructions Recorded Confirmed Multivitamins, Thera [Multivitamin 1 tab PO DAILY 10/12/21 01/15/24 (formulary)] Warfarin [Coumadin] 5 mg PO DAILY 10/12/21 01/15/24 carvediloL 12.5 mg PO BID 05/13/22 01/15/24 Fluticasone/Umeclidin/Vilanter 1 puff INHALATION RT-DAILY 01/15/24 01/15/24 [Trelegy Ellipta 100-62.5-25] lisinopriL [Zestril] 2.5 mg PO DAILY 01/15/24 01/15/24 ursodioL [Ursodiol] 300 mg PO BID 01/15/24 01/15/24 Previous Rx's Medication Instructions Recorded Atorvastatin [Lipitor] 80 mg PO DAILY #90 tab 01/19/24 Clopidogrel [Plavix] 75 mg PO DAILY #90 tab 01/19/24 Nitroglycerin Sl Tabs [Nitrostat] 0.4 mg SUBLINGUAL Q5M PRN #25 tab 01/19/24 Ipratropium-Albuterol Nebulize 3 ml INHALATION RT-TID 30 Days 01/20/24 [Duoneb 0.5 mg-3 mg/3 ml Soln] #120 each Pantoprazole [Protonix] 40 mg PO AC-BRKFST 90 Days #90 tab 01/20/24 acetaZOLAMIDE [Diamox] 250 mg PO TID 90 Days #90 tab 01/20/24 methylPREDNISolone Dose Pack 4 mg PO DIRECTED #21 tab 10/06/24 [Medrol Dose Pack] methylPREDNISolone Dose Pack 4 mg PO DIRECTED #21 tab 10/14/24 [Medrol Dose Pack] Allergies Allergy/AdvReac Type Severity Reaction Status Date / Time No Known Allergies Allergy Verified 10/14/24 13:29 Review of Systems ROS Statement: Those systems with pertinent positive or pertinent negative responses have been documented in the HPI. ROS Other: All systems not noted in ROS Statement are negative. Constitutional: Denies: fever Eyes: Denies: eye pain ENT: Denies: ear pain Musculoskeletal: Reports: as per HPI, arthralgia Past Medical History Past Medical History: Coronary Artery Disease (CAD), COPD, Hyperlipidemia, Hypertension Additional Past Medical History / Comment(s): Exposure to agent orange. Carotid stenosis. 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 Cataract surgery. Hydrocele surgery,arch study,left carotid stent. azra carotidendartectomy Past Anesthesia/Blood Transfusion Reactions: No Reported Reaction Additional Past Anesthesia/Blood Transfusion Reaction / Comment(s): no reaction to possible blood transfusion 1990s for heart surgery Past Psychological History: No Psychological Hx Reported Smoking Status: Former smoker Past Alcohol Use History: None Reported Past Drug Use History: None Reported - Past Family History Mother Family Medical History: Cancer Father Family Medical History: Coronary Artery Disease (CAD) General Exam Limitations: no limitations General appearance: alert, in no apparent distress Head exam: Present: normocephalic Eye exam: Present: normal appearance Neck exam: Present: normal inspection Respiratory exam: Present: normal lung sounds bilaterally Cardiovascular Exam: Present: regular rate, normal rhythm Expanded Peripheral pulses: 2+: Radial (R) GI/Abdominal exam: Present: soft. Absent: tenderness Right Forearm Wrist exam: Present: tenderness, swelling, erythema, other (Right wrist with mild swelling and erythema and tenderness. Pain increases with range of motion. Distally the extremity is neurovascular intact) Back exam: Present: normal inspection Neurological exam: Present: alert. Absent: motor sensory deficit Psychiatric exam: Present: normal affect, normal mood Skin exam: Present: erythema (Dorsal wrist, right) Course Vital Signs 10/14/24 13:28 Temperature 98.2 F Pulse Rate 96 Respiratory 16 Rate Blood Pressure 169/67 O2 Sat by Pulse 92 L Oximetry Medical Decision Making - Medical Decision Making Was pt. sent in by a medical professional or institution (, PA, PROGRAMMING COORDINATOR, urgent care, hospital, or halfway...) When possible be specific @ -No Did you speak to anyone other than the patient for history (EMS, parent, family, police, friend...)? What history was obtained from this source @ -No Did you review nursing and triage notes (agree or disagree)? Why? @ -I reviewed and agree with nursing and triage notes Were old charts reviewed (outside hosp., previous admission, EMS record, old EKG, old radiological studies, urgent care reports/EKG's, halfway records)? Report findings @ -No old charts were reviewed Differential Diagnosis (chest pain, altered mental status, abdominal pain women, abdominal pain men, vaginal bleeding, weakness, fever, dyspnea, syncope, headache, dizziness, GI bleed, back pain, seizure, CVA, palpatations, mental health, musculoskeletal)? @ -Differential Musculoskeletal Muscular strain, contusion, ligament sprain, fracture, arthritis, septic arthritis, bursitis, cellulitis, muscle spasm, nerve compression, DVT, arterial occlusion, herpes zoster, electrolyte abnormality, tumor.... This is not meant to be in all inclusive list EKG interpreted by me (3pts min.). @ -As above X-rays interpreted by me (1pt min.). @ -None done CT interpreted by me (1pt min.). @ -None done U/S interpreted by me (1pt. min.). @ -None done What testing was considered but not performed or refused? (CT, X-rays, U/S, labs)? Why? @ -None What meds were considered but not given or refused? Why? @ -None Did you discuss the management of the patient with other professionals (professionals i.e. , PA, PROGRAMMING COORDINATOR, lab, RT, psych nurse, elementary school social worker, qa consultant, teacher, community liaison officer, director case management)? Give summary @ -No Was smoking cessation discussed for >3mins.? @ -No Was critical care preformed (if so, how long)? @ -No Were there social determinants of health that impacted care today? How? (Homelessness, low income, unemployed, alcoholism, drug addiction, transportation, low edu. Level, literacy, decrease access to med. care, fci, rehab)? @ -No Was there de-escalation of care discussed even if they declined (Discuss DNR or withdrawal of care, Hospice)? DNR status @ -No What co-morbidities impacted this encounter? (DM, HTN, Smoking, COPD, CAD, Cancer, CVA, ARF, Chemo, Hep., AIDS, mental health diagnosis, sleep apnea, morbid obesity)? @ -History of recent left wrist with similar symptoms Was patient admitted / discharged? Hospital course, mention meds given and route, prescriptions, significant lab abnormalities, going to OR and other pertinent info. @ -Patient presents with right wrist swelling and mild erythema and discomfort. Discomfort increased with movement. Patient recently had similar symptoms left wrist resolved with medications. Patient just finished steroids. Patient will be discharged with same treatment regimen and recommended close follow-up and probable rheumatology evaluation. Patient updated. Undiagnosed new problem with uncertain prognosis? @ -No Drug Therapy requiring intensive monitoring for toxicity (Heparin, Nitro, Insulin, Cardizem)? @ -No Were any procedures done? @ -No Diagnosis/symptom? @ -Polyarthralgia Acute, or Chronic, or Acute on Chronic? @ -Acute Uncomplicated (without systemic symptoms) or Complicated (systemic symptoms)? @ -Default Side effects of treatment? @ -No Exacerbation, Progression, or Severe Exacerbation? @ -No Poses a threat to life or bodily function? How? (Chest pain, [place], [place], pneumonia, PE, COPD, DKA, ARF, appy, cholecystitis, CVA, Diverticulitis, Homicidal, Suicidal, threat to staff... and all critical care pts) @ -No Disposition Clinical Impression: Polyarthralgia Disposition: HOME SELF-CARE Condition: Stable Instructions (If sedation given, give patient instructions): Arthralgia (ED) Additional Instructions: Please do follow-up with your primary care physician in the next day or 2 for recheck. Prescription sent to pharmacy. Please consider follow-up with rheumatology, there are some associated with orthopedic offices and you will need to call or discuss this with your primary care physician. Return for fever, increased pain or swelling, increased redness, worsening symptoms or any other concerns Prescriptions: methylPREDNISolone Dose Pack [Medrol Dose Pack] 4 mg PO DIRECTED #21 tab Is patient prescribed a controlled substance at d/c from ED?: No Referrals: [facility],Clinic [Primary Care Provider] - 1-2 days Time of Disposition: 14:35
[2024-10-14 14:50] VITALS: BP 160/72; RESP 18
== END 2024-10-14 14:48 | disposition home or self-care (01) ==
LOC: EC 13:24
DX: M13.0 Polyarthritis, unspecified (principal)
CPT/HCPCS: 99283; 96372; J1885